=== PATIENT | male | born 2000 | race Caucasian/White ===

== ENCOUNTER 2020-08-30 20:25 | Emergency (ER) | payer BC ==
[~2020-08-30] VITALS: Ht 175.3 cm; Wt 81.8 kg
[2020-08-30] MEDS ORDERED: risperiDONE 2mg tablet PO ONE (21:15)
--- NOTE | 2020-08-30 22:51 | NUR ---
Patient brought from main ER from the main ER. No distress. Per inside sales specialist the patient is ok to sleep and be re-evaluated later. Patient is well oriented, no distress.
--- NOTE | 2020-08-30 23:32 | NUR ---
Patient sleeping quietly, in view from nurses station. No legal hold. Patient family reported to be coming from [place] to pick him up in the am?
--- NOTE | 2020-08-31 00:29 | NUR ---
Patient sleeping quietly, no distress.
--- NOTE | 2020-08-31 03:45 | NUR ---
Patient sleeping quietly on his right side. No distress.
[2020-08-31 06:52] VITALS: BP 124/76
[2020-09-01] MEDS ORDERED: HYDR-3686 PO (18:28)
[2020-09-01] MEDS ORDERED: DIVA-76 PO (18:28)
[2020-09-01] MEDS ORDERED: LURA80TA3 PO (18:28)
== END 2020-08-31 06:56 | disposition home or self-care (01) ==
LOC: ER 20:26
DX: F41.9 Anxiety disorder, unspecified (principal); F22 Delusional disorders; F31.9 Bipolar disorder, unspecified; F17.210 Nicotine dependence, cigarettes, uncomplicated; F12.90 Cannabis use, unspecified, uncomplicated; Z88.8 Allergy status to other drugs, medicaments and biological substances
CPT/HCPCS: 99285

== ENCOUNTER 2020-09-01 14:50 | Emergency (ER) | payer BC ==
[~2020-09-01] VITALS: Ht 175.3 cm; Wt 87.7 kg
[2020-09-01] MEDS ORDERED: lurasidone 20mg tablet PO SCH (17:00)
[2020-09-01] MEDS ORDERED: lurasidone 60mg tablet PO SCH (17:00)
--- NOTE | 2020-09-01 18:00 | NUR ---
One to one with the patient to assess severity of mood symptoms. The patient is cooperative but very labile and periodically making loud crying noises. He stated he has been noncompliant with his medications. He reports he has not been sleeping. He is from [place] but came from [facility] in [place] but was kicked out of there and traveled down to [place]. He was seen here in the ER 08/30 and was released in the AM to be picked up by his parents [place] he was not ready to come home. He now is begging for help to get back to his parents home. He gives conflicting answers when asked about suicidal thoughts. He stated during the nursing the assessment "I'm about to frigging go lay down on the railroad tracks" A few minutes later he stated he denied being suicidal when asked by the PA. He denies that he is having auditory/visual hallucinations. He stated that he is frequently hospitalized at the [facility] unit in [place] and has had many other hospitalizations in facilities in [facility]. He stated that his dx hx is Bipolar, OCD, ADHD, Anxiety disorder. Hx of special ed classes in school.
[2020-09-01] MEDS ORDERED: LURA80TA3 PO (18:28)
[2020-09-01] MEDS ORDERED: DIVA-76 PO (18:28)
[2020-09-01] MEDS ORDERED: HYDR-3686 PO (18:28)
--- NOTE | 2020-09-01 18:52 | NUR ---
Mother, Steffany: [phone] Father, Joaquín: [phone]
--- NOTE | 2020-09-01 19:35 | NUR ---
The patient continues to be labile, has a flight of ideas, fast pressured speech
--- NOTE | 2020-09-01 19:38 | NUR ---
The patient is making nonsensical statements with a kyrgyz accent
[2020-09-01 19:39] LABS: CLARITY,URINE CLEAR (Clear); COLOR,URINE YELLOW (Yellow); GLUCOSE, URINE NEGATIVE (Neg); KETONES,URINE TRACE mg/dl (Neg); LEUKOCYTE ESTERASE ,URINE NEGATIVE (Neg); NITRITES, URINE NEGATIVE (Neg); OCCULT BLOOD,URINE NEGATIVE (Neg); PROTEIN,URINE TRACE mg/dl (Neg)
[2020-09-01 19:41] LABS: BASOPHILS # (AUTO) 0.1 X10'3 (0-0.2); BASOPHILS % (AUTO) 1.5 % (0-1); EOSINOPHILS # (AUTO) 0.6 X10'3 (0-0.9); EOSINOPHILS % (AUTO) 6.4 % (0-6); HEMATOCRIT 36.6 % (42.0-52.0); HEMOGLOBIN 12.7 g/dl (14.0-17.9); LYMPHOCYTES # (AUTO) 3.1 X10'3 (1.1-4.8); LYMPHOCYTES % (AUTO) 34.2 % (21-51); MEAN CORPUSCULAR HEMOGLOBIN 30.5 PG (27.0-31.0); MEAN CORPUSCULAR HGB CONC 34.7 g/dL (33.0-36.5); MEAN PLATELET VOLUME 7.1 FL (7.4-10.4); MONOCYTES # (AUTO) 1.1 X10'3 (0-0.9); MONOCYTES % (AUTO) 12.2 % (2-12); NEUTROPHILS # (AUTO) 4.2 X10'3 (1.8-7.7); NEUTROPHILS % (AUTO) 45.7 % (42-75); PLATELET COUNT 287 X10'3 (140-440); RED BLOOD COUNT 4.16 X10'6 (4.70-6.10); WHITE BLOOD COUNT 9.1 X10'3 (4.5-11.0)
[2020-09-01 19:51] LABS: UA COLLECTION TYPE VOIDED
[2020-09-01 19:52] LABS: BACTERIA,URINE FEW /HPF (Neg); CAL OXALATE CRYSTALS FEW /HPF (NEGATIVE); MUCUS STRANDS MODERATE /LPF (Neg); RBC,URINE NONE SEEN /HPF (0-2); SQUAMOUS EPITHELIAL CELL,UR FEW /LPF (FEW); WBC,URINE 0-4 /HPF (0-4)
[2020-09-01 19:54] LABS: URINE AMPHETAMINE SCREEN NEGATIVE (Neg); URINE BARBITUATE SCREEN NEGATIVE (Neg); URINE BENZODIAZEPINES SCREEN NEGATIVE (Neg); URINE CANNABINOID SCREEN POSITIVE (Neg); URINE COCAINE SCREEN NEGATIVE (Neg); URINE METHADONE SCREEN NEGATIVE (Neg); URINE OPIATE SCREEN NEGATIVE (Neg); URINE PHENCYCLIDINE SCREEN NEGATIVE (Neg)
[2020-09-01 19:56] LABS: ALANINE AMINOTRANSFERASE 20 U/L (12-78); ALBUMIN 3.6 G/DL (3.4-5.0); ALBUMIN/GLOBULIN RATIO 1.1 (1.1-1.5); ALKALINE PHOSPHATASE 59 IU/L (20-180); ANION GAP 7 (8-16); ASPARTATE AMINO TRANSFERASE 23 U/L (10-37); BILIRUBIN,TOTAL 0.4 MG/DL (0.1-1.0); BLOOD UREA NITROGEN 10 MG/DL (7-18); BUN/CREATININE RATIO 11.8 (5.4-32.0); CALCIUM 8.4 MG/DL (8.5-10.1); CHLORIDE 106 MMOL/L (99-107); CREATININE 0.85 MG/DL (0.60-1.10); GLUCOSE 90 MG/DL (70-104); POTASSIUM 3.4 MMOL/L (3.5-5.1); SODIUM 140 MMOL/L (135-145); TOTAL CARBON DIOXIDE 26.7 MMOL/L (24-32); TOTAL PROTEIN 6.9 G/DL (6.4-8.2); eGFR > 90 ML/MIN
[2020-09-01 20:04] LABS: ETHANOL < 0.010 GM/DL (0.0-0.010)
[2020-09-01] MEDS: hydrOXYzine 25 MG tablet PO PRN (20:07)
[2020-09-01] MEDS ORDERED: ondansetron 4mg/5ml UD cup PO ONE (20:45)
[2020-09-01] MEDS ORDERED: ondansetron 4mg rapidly disintigrating tab PO ONE (20:50)
--- NOTE | 2020-09-01 20:53 | NUR ---
patient vomited and PA made aware and orders received.
[2020-09-01] MEDS ORDERED: divalproex sodium 500mg tablet.DR PO SCH (21:00)
[2020-09-01] MEDS: POTASSIUM BICARB 20meq eff tab 20 MEQ TABLET.EFF PO ONE ×2 (21:10→21:31)
--- NOTE | 2020-09-01 22:02 | NUR ---
The patient appears to be sleeping.
--- NOTE | 2020-09-01 23:21 | NUR ---
The patient appears to be sleeping
--- NOTE | 2020-09-02 00:37 | NUR ---
The patient appears to be sleeping
--- NOTE | 2020-09-02 01:33 | NUR ---
The patient appears to be sleeping
--- NOTE | 2020-09-02 02:35 | NUR ---
The patient appears to be sleeping
[2020-09-02] MEDS ORDERED: potassium Cl 20 mEq SR tablet PO STA (04:12)
--- NOTE | 2020-09-02 04:46 | NUR ---
The patient was up to use the bathroom. He did take a kdur tablet but was very dramatic. He remains poorly focused, labile, hyperverbal
[2020-09-02] MEDS ORDERED: NICOTINE POLACRILEX 2 MG LOZENGE BC PRN (04:55)
--- NOTE | 2020-09-02 06:30 | NUR ---
Received patient sleeping at shift change, respirations even and unlabored.
--- NOTE | 2020-09-02 07:55 | NUR ---
Pt demanding "I want breakfast!" Pt reassured luis is coming. Pt making loud growl sounds, but remains in his room.
[2020-09-02] MEDS ORDERED: nicotine 7mg patch - 24hr TD SCH (08:00)
--- NOTE | 2020-09-02 08:21 | NUR ---
Patient awake in his room eating his breakfast. Pt states "I want to smoke." Pt has conflicting statements about who many cigarettes he smokes. Received order for 7mg Nicotine patch, which was placed on right deltoid. Pt presents as disorganized with pressured/rapid speech. Pt states "I'm from [place] "All I want to do is get my cigarettes and pot." "I hate you because you have no dispensaries around here." "I hate you." Pt inappropriately laughs and makes growling sounds. Pt is dramatic with his facial expresions, making his eyes big and exaggerating movements. Pt denies auditory and visual hallucinations. Denies suicidal thoughts.
--- NOTE | 2020-09-02 09:05 | NUR ---
[facility] in room assessing patient. Noted pt raising his voice, making racial remarks and saying "I just need to get the f out of here." Security was called for stand-by. Pt appeared to calm down and is now laying on his bed. Pt was placed on a 5150 hold.
--- NOTE | 2020-09-02 10:14 | NUR ---
Pt is lying on his bed with eyes open. Pt recently talked with his parents. No distress noted at this time.
[2020-09-02] MEDS: hydrOXYzine 25 MG tablet PO PRN (10:32)
--- NOTE | 2020-09-02 10:52 | NUR ---
Administered PRN Atarax 25mg.
[2020-09-02] MEDS ORDERED: OLANZapine 2.5MG tablet PO ONE (11:25)
--- NOTE | 2020-09-02 11:26 | NUR ---
Pt continues to be labile, will apologize for his outbursts one minute then the next postures up and becomes verbally agressive. Received order for PO Zyprexa 5mg.
--- NOTE | 2020-09-02 11:54 | NUR ---
DISCHARGE NOTE: Patient was discharged at 1147. Pt ambulated independently to lobby with mother. Discharge instructions were reviewed with both pt and mother, both verbalized understanding. Pt will follow up with her therapist Grant Roland. Pt was A&Ox4, Denies any suicidal thoughts.
--- NOTE | 2020-09-02 12:01 | NUR ---
DISREGARD PREVIOUS NOTE- DOCUMENTED ON WRONG PATIENT.
--- NOTE | 2020-09-02 12:49 | NUR ---
Pt sleeping comfortably, respirations even and unlabored.
[2020-09-02 14:23] VITALS: BP 146/87
== END 2020-09-02 14:25 ==
LOC: ER 14:51
DX: R45.851 Suicidal ideations (principal); Z20.822 Contact with and (suspected) exposure to COVID-19; F31.9 Bipolar disorder, unspecified; F12.90 Cannabis use, unspecified, uncomplicated; F41.9 Anxiety disorder, unspecified; Z59.0 Homelessness; Z79.899 Other long term (current) drug therapy; Z88.8 Allergy status to other drugs, medicaments and biological substances
CPT/HCPCS: 36415; 80053; 80305; 80320; 81001; 84443; 85025; 87635; 99285; C9803; Q0177

== ENCOUNTER 2020-09-02 12:52 | Inpatient (IN) | payer BC ==
[~2020-09-02] VITALS: Ht 175.3 cm; Wt 86.4 kg
[~2020-09-02 12:52] MED LIST: DIVA-76 PO; HYDR-3686 PO; LURA80TA3 PO
[2020-09-02] MEDS ORDERED: acetaminophen 325mg tablet PO PRN ×2 (14:50)
[2020-09-02] MEDS ORDERED: loperamide 2mg capsule PO PRN (14:50)
[2020-09-02] MEDS ORDERED: magnesium hydroxide 30ml (MOM) UD suspension PO PRN (14:50)
[2020-09-02] MEDS: NICOTINE POLACRILEX 2 MG LOZENGE BC PRN ×2 (15:22→20:49)
--- NOTE | 2020-09-02 15:59 | NUR ---
Admisison note: Pt admitted today to [facility] for [facility]al today on 5150 for GD from the ER at 1430. Pt exhibits manic symptoms, disorganized, confused, agitated, long history of bipolar since 15 yrs old, noncompliant with treatment. Pt is [place] Pt has history of Bipolar, OCD, ADHD, anxiety, special ed. Pt is not cooperative for the admission process. PT often loud and accusing and profane.
[2020-09-02] MEDS: LORazepam 1 MG tablet PO PRN (16:09)
[2020-09-02 20:21] VITALS: BP 111/69
[2020-09-02] MEDS ORDERED: lurasidone 20mg tablet PO SCH (21:00)
[2020-09-02] MEDS ORDERED: lurasidone 60mg tablet PO SCH (21:00)
[2020-09-02] MEDS ORDERED: divalproex sodium 500mg tablet.DR PO SCH (21:00)
[2020-09-02] MEDS: traZODone 50mg tablet PO PRN (21:53)
--- NOTE | 2020-09-03 00:11 | NUR ---
Nursing Progress Note: Legal hold: 5150 Client on voluntary/involuntary status for DTS Report received from Jorge BUTT with use of SBAR Why are they here: On 08/30/20 the Pt , presents to the ED with complaints of being "very anxious and very paranoid" for the last 5 days. He also describes some auditory hallucinations. Patient reports he has been homeless over this time, however later backtracks and states he is a "traveler" and having issues with the [employer] bus. He also reports his cell phone is broken so he has been "stranded" in [place]. Patient reports his parents "have to" come from [place], [place] tomorrow pick him up and take him to a "mental health facility" known as [facility]. RN spoke to patient's parents who report they are unable to pick the patient up until tomorrow afternoon. Pt was discharged from the ER It is not clear if his parents came. The pt returns to the ER o 09/01/20 He presented to the emergency department for mental health evaluation due to his intermittent suicidal ideation. Patient provided the cell number of his parents. Mom: [phone]. Dad: [phone]. ER MD Spoke with the mother and father who stated that they are not equipped to deal with the patients mental illness. Assessment What has happened this shift: Pt was sleeping at start of shift. Slept until awakened for medications. Pt was cooperative with meds. Needed some encouragement to eat adequate snack for Latuda. Pt became wide awake and speech became Manic. His mood was labile in one sentence he could go from tears to laughing. 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 Pt spoke in a Alexx accent at times. Pt called his mom and yelled at her over the phone. Although manic speech he was cooperative and pleasant. Took PRN Trazodone went to bed S/I, H/I: In his rambling disorganized speech he mentions stepping in front of a train. A/VH: Denies Sleep: Asleep at this time ADL's Independent Group attendance NA Were meds taken Yes Any med S/E No Mental Status Exam Appearance: Reasonably well groomed. 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 Cognition WNL Insight: poor Judgment :Poor Therapeutic interventions: PRN's: Trazodone Interventions: 1:1 assessment, therapeutic communication, medication education and monitoring, encouragement to come to meals and participate in unit activities, behavior monitoring and intervention as needed, distraction, redirection, Q 15 minute safety checks. Restraints/seclusion/emergency medication: None Justification of Continued Inpatient Treatment: Patient needs crisis interruption and medication management and monitoring in a safe and therapeutic environment.
[2020-09-03] MEDS: NICOTINE POLACRILEX 2 MG LOZENGE BC PRN ×2 (06:28→19:12)
[2020-09-03] MEDS: nicotine 21mg patch - 24 hr TD SCH (07:39)
[2020-09-03 07:41] LABS: CHOL/HDL RATIO 2.5 (0.00-4.99); CHOLESTEROL 117 MG/DL (0-200); HDL CHOLESTEROL 46 MG/DL (35-60); LDL CHOLESTEROL 56 MG/DL (50-100); TRIGLYCERIDES 56 MG/DL (20-135); VALPROATE 55 UG/ML (50-100)
[2020-09-03 08:00] VITALS: BP 113/62
[2020-09-03 08:02] LABS: HEMOGLOBIN A1C 5.6 % (4.5-6.2)
[2020-09-03] MEDS: LORazepam 1 MG tablet PO PRN ×3 (09:27→19:12)
[2020-09-03] MEDS ORDERED: OLANZAPINE 5 MG TABLET PO ONE (09:35)
--- NOTE | 2020-09-03 15:35 | NUR ---
Nursing Progress Note: RAJANI Legal hold: 5150 Expires 09/11 @ 1430 Client on involuntary status for DTS. Report received from FILOMENA Landa with use of SBAR. Why are they here: Pt admitted today to [facility] for [facility]al today on 5150 for GD from the ER at 1430. Pt exhibits manic symptoms, disorganized, confused, agitated, long history of bipolar since 15 yrs old, noncompliant with treatment. Pt is "Tree hopping [place] tree [place] get [place] Pt has history of Bipolar, OCD, ADHD, anxiety, special ed. Pt is not cooperative for the admission process. patient often loud and accusing and profane. Assessment What has happened this shift: Received patient awake pacing the basurto at shift change. Pt presents with rapid speech and elevated affect. Pt required redirection as he was talking loud and making growling noises and peers were still sleeping. Pt paced basurto, laughing inappropriately throughout the morning. Pt came up to staff and said "I am wanted in [facility] and they are going to come and get me, unless you want to take me." "I am just going to banana slug my way out of here." Pt told law writer, after talking to father on the phone, "I want to kill my dad, my dad's going down." "He is a psychologist, that's why I want to kill him." Pt continued to elevate, posturing up on staff saying different things like "you want a piece of me?" "Hey what's up with that bitch, why you staring at me!" Pt would then change to apologizing then back to loud, accusing, profane, grandiose statements. Pt changes his voice to different accents like gangster to Cape Verde[place], telling law writer "You got all this jain shit around you." Pt talks often about smoking "Ganja," "I will bring my Sativa up in this place." During 1:1 he sat in the chair pretending he was smoking a joint. Pt was administered Ativan 1mg with repeat dose with little effect. Zyprexa 5mg one time dose was administered with effect. Pt slept a good portion of the early afternoon. S/I, H/I: In his rambling disorganized speech said "I will just go and lay on the railroad tracks." "That's cool." See above note about H/I regarding pt's father. A/VH: Denies both. Sleep: 6.25 hours per sleep assessment. Slept after Zyprexa. ADL's: Independent Group attendance: No scheduled group today. Were meds taken: Yes, without issue. Any med S/E: Some sedation after Zyprexa Mental Status Exam Appearance: Disheveled, malodorous, scruffy morales, puffy hair. Dressed in green unit scrubs. Eye contact: Good Behavior: Manic Speech: Disorganized, rapid speech. Mood: Labile Affect: Elevated Thought process: Disorganized, grandiose, delusional. Thought Content: Just wants to smoke "my stash." Cognition A&O x3 Insight: Poor Judgment: Poor Therapeutic interventions PRN's: Ativan, Zyprexa 5mg Interventions: 1:1 assessment, therapeutic communication, medication administration/education/monitoring, encouragement to come to meals and participate in unit activities, behavior monitoring and intervention as needed, distraction, redirection, Q 15 minute safety checks. Restraints/seclusion/emergency medication: None Justification of Continued Inpatient Treatment: Patient is exhibiting manic symptoms, disorganized, confused, agitated and unable to verbalize a plan for food clothing or half-way. Patient has a long history of mental illness, "bipolar ". Patient has been noncompliant with treatment providers in [facility]. Patient needs crisis interruption and medication management and monitoring in a safe and therapeutic environment.
--- NOTE | 2020-09-03 18:40 | NUR ---
Pts parents are requesting that patient be transferred to a treatment center or program once he is released from here. They state he has gotten to be "too much" for them when he is unstable. Pt is yelling at his mother on the phone and then hung up on her. Pts father has requested any phone calls come to him rather than his mother. Explained staff may attempt contact at some point and I would note his request.
[2020-09-03] MEDS: traZODone 50mg tablet PO PRN ×2 (19:55→20:56)
[2020-09-03] MEDS: divalproex sod 250mg ER (24-hour) tablet PO SCH (19:55)
[2020-09-03 20:00] VITALS: BP 154/80
[2020-09-03] MEDS: OLANZAPINE 5 MG TABLET PO SCH (20:00)
[2020-09-03] MEDS: mag hydrox/Alum hydrox/simeth 30ml oral suspension PO PRN (20:00)
[2020-09-03] MEDS: hydrOXYzine 25 MG tablet PO PRN (20:56)
--- NOTE | 2020-09-03 21:54 | NUR ---
Nursing Progress Note: RAJANI Legal hold: 515 Expires 09/11 @ 1430 Client on involuntary status for DTS. Report received from FILOMENA Landa with use of SBAR. Why are they here: Pt admitted today to [facility] for [facility] today on 5150 for GD from the ER at 1430. Pt exhibits manic symptoms, disorganized, confused, agitated, long history of bipolar since 15 yrs old, noncompliant with treatment. Pt is "Tree hopping from tree to tree to get back to the [facility] Pt has history of Bipolar, OCD, ADHD, anxiety, special ed. Pt is not cooperative for the admission process. patient often loud and accusing and profane. Assessment What has happened this shift: Pt was requesting headphones and a phone at change of shift. Pt called his parents and began to escalate yelling loudly at his mother. Pt handed me the phone and his father stated they would like to screen their calls from him. Pts mother would like him to go to a center "with other men where he can be cared for." Pt made a couple of phone calls to his mother and attempts to make plans with his mother for his release. 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 Pt was agitated and given prns with minimal effect. Pt became agitated at another patient staring and following him around, but he was able to politely ask her to stay away from him. pt was med compliant at . Stating "ok I'll play your little game and you can't make me take meds when I get out of here. All I need is depakote, latuda, and Risperdal and I'm really not trying to change my meds up, but I'll take what you have." S/I, H/I: I dont want to kill myself, Im just not afraid of dying. A/VH: Denies both Sleep: see sleep hours ADL's: Independent Group attendance: see sleep hours Were meds taken: Yes, without issue. Any med S/E: none Mental Status Exam Appearance: Disheveled, malodorous, scruffy morales, puffy hair. Dressed in green unit scrubs. Eye contact: Good Behavior: yelling at parents, loud, postures aggressively then backs down. Speech: Disorganized, rapid speech. Mood: Labile, hypomanic Affect: Elevated Thought process: Disorganized, grandiose, delusional. 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 Cognition A&O x3 Insight: Poor Judgment: Poor Therapeutic interventions PRN's: Ativan, atarax, trazodone, nicotine lozenge Interventions: 1:1 assessment, therapeutic communication, medication administration/education/monitoring, encouragement to come to meals and participate in unit activities, behavior monitoring and intervention as needed, distraction, redirection, Q 15 minute safety checks. Restraints/seclusion/emergency medication: None Justification of Continued Inpatient Treatment: Patient is exhibiting manic symptoms, disorganized, confused, agitated and unable to verbalize a plan for food clothing or alf. Patient has a long history of mental illness, "bipolar ". Patient has been noncompliant with treatment providers in [facility]. Patient needs crisis interruption and medication management and monitoring in a safe and therapeutic environment.
[2020-09-04] MEDS: NICOTINE POLACRILEX 2 MG LOZENGE BC PRN ×4 (06:58→18:08)
[2020-09-04] MEDS: divalproex sod 250mg ER (24-hour) tablet PO SCH ×2 (07:35→20:26)
[2020-09-04] MEDS: OLANZAPINE 5 MG TABLET PO SCH ×3 (07:35→20:26)
[2020-09-04] MEDS: nicotine 21mg patch - 24 hr TD SCH (07:39)
[2020-09-04 07:53] VITALS: BP 119/86
[2020-09-04] MEDS ORDERED: LORazepam 2 mg/ml vial ONE (08:54)
[2020-09-04] MEDS ORDERED: haloperidol lactate 5mg/ml inj ONE (08:54)
[2020-09-04] MEDS ORDERED: diphenhydrAMINE 50 mg/ml inj ONE (08:55)
--- NOTE | 2020-09-04 17:51 | NUR ---
Nursing Progress Note: Legal hold: 5150 Expires 09/11 @ 1430 Client on involuntary status for DTS. Report received from FILOMENA Landa with use of SBAR. Why are they here: Pt admitted today to [facility] for Behavioral today on 5150 for GD from the ER at 1430. Pt exhibits manic symptoms, disorganized, confused, agitated, long history of bipolar since 15 yrs old, noncompliant with treatment. Pt is "Tree hopping from tree to tree to get back to the [place]." Pt has history of Bipolar, OCD, ADHD, anxiety, special ed. Pt is not cooperative for the admission process. patient often loud and accusing and profane. Assessment What has happened this shift: RN received pt. asleep in bed at start of shift. Pt. awoke shortly after and speaking rapidly and loudly states, I need more water! You guys just leave this old, warm water sitting in my room all night and then make me drink hot water from the faucet! RN asked pt. multiple times to lower his voice and pt. eventually complied. After pt. received water pt. paced the halls with headphones. Pt. then approached this RN and loudly stated, Im gonna need nicotine right now I smoke, thats what I do All I want to do is get some Taco Steve and smoke!. Pt. again reminded to lower his voice. Pt. received Nicotine lozenge and again paced the hallway. After breakfast pt. requested Nicotine. When told he had to wait 7 minutes pt. became verbally abusive, yelling at this RN and calling him a . Pt. informed that name calling would not be tolerated and that pt. needed to lower his voice. Pt. continued with name calling. Security called and pt. began threatening staff, stating, We can do this here! Pt. given IM medication of Haldol 10mg, Ativan 2mg, and Benadryl 50mg with good effect. Pt. slept for approx. 2 hours and woke up for snack. 1:1 attempted at bedside, RN attempted to discuss earlier incident with pt. but pt. became agitated. Pt. refused Physical assessment and 1:1 interview. Pt. states, I Just want to get out of here I just wish I was never born. When RN attempted to talk with pt. about his feelings of passive SI, pt. stated, Dont talk to me unless I can smoke. Pt. napped after lunch. S/I, H/I: Passive SI. A/VH: Denies Sleep: 9.25 hrs on NOC shift. Pt. napped approx. 3hours on day shift. ADL's: Independent. Pt. showered today. Group attendance: No scheduled group today. Were meds taken: Yes Any med S/E: Denies Mental Status Exam Appearance: Disheveled, wearing green scrubs, and long sleeve shirt. Eye contact: Good Behavior: Unredirectable, Angry, defiant, and flippant. Speech: Hyperverbal, pressured speech. Mood: Agitated, depressed, anxious. Affect: Congruent with mood. Thought process: Disorganized, grandiose, tangential. Thought Content: Wants to go to [facility] and eat taco steve and smoke. Cognition: Unable to smoke. Insight: Poor Judgment: Poor Therapeutic interventions PRN's: Haldol 10mg, Ativan 2mg, Benadryl 50mg IM x1 Interventions: 1:1 assessment, therapeutic communication, medication administration/education/monitoring, encouragement to come to meals and participate in unit activities, behavior monitoring and intervention as needed, distraction, redirection, Q 15 minute safety checks. Restraints/seclusion/emergency medication: None Justification of Continued Inpatient Treatment: Patient is exhibiting manic symptoms, disorganized, confused, agitated and unable to verbalize a plan for food clothing or fdc. Patient has a long history of mental illness, "bipolar ". Patient has been noncompliant with treatment providers in [facility]. Patient needs crisis interruption and medication management and monitoring in a safe and therapeutic environment.
[2020-09-04] MEDS: LORazepam 1 MG tablet PO PRN (18:36)
[2020-09-04 19:31] VITALS: BP 129/89
[2020-09-04] MEDS: mag hydrox/Alum hydrox/simeth 30ml oral suspension PO PRN (20:26)
[2020-09-04] MEDS: traZODone 50mg tablet PO PRN (20:26)
--- NOTE | 2020-09-04 22:00 | NUR ---
Nursing Progress Note: Legal hold: 515 Expires 09/11 @ 1430 Client on involuntary status for DTS. Report received from FILOMENA Landa with use of SBAR. Why are they here: Pt admitted today to [facility] for Behavioral today on 5150 for GD from the ER at 1430. Pt exhibits manic symptoms, disorganized, confused, agitated, long history of bipolar since 15 yrs old, noncompliant with treatment. Pt is "Tree hopping from tree to tree to get back to the [facility] Pt has history of Bipolar, OCD, ADHD, anxiety, special ed. Pt is not cooperative for the admission process. patient often loud and accusing and profane. Assessment What has happened this shift: Pt was in his room on the phone with his mother yelling and crying at change of shift. Pt states "She's on vacation from work and I just want to be on vacation with her, I wanted to spend the summer with her and now I'm here! I just want to go to [employer]!" Suggested patient ask his mother if she would like to come and visit him while he's here. Pt replied, "I know but my dad's a psychologist and he's messing everything up!" Pt was hysterical and anxious, was given prn ativan with good effect. He was able to sit and was cooperative for his vitals and then proceeded to listen to headphones and interact socially with others. Pt spent time watching tv and playing board games before going to bed. S/I, H/I: Denies A/VH: Denies Sleep: see sleep hours ADL's: Independent. Group attendance: No scheduled group today. Were meds taken: Yes Any med S/E: Denies Mental Status Exam Appearance: Disheveled, wearing green scrubs, and long sleeve shirt. Eye contact: Good Behavior: Pts behavior becomes erratic during and immediately after phone calls with his parents. The remainder of the shift he is cooperative and redirectable, responds well to prn ativan. Speech: Hyperverbal, pressured speech. Mood: labile Affect: congruent with mood Thought process: Disorganized, grandiose, tangential. Thought Content: Wants to see his mother and go to [place] to eat Cognition: a/ox4 Insight: Poor Judgment: Poor Therapeutic interventions PRN's: ativan, trazodone Interventions: 1:1 assessment, therapeutic communication, medication administration/education/monitoring, encouragement to come to meals and participate in unit activities, behavior monitoring and intervention as needed, distraction, redirection, Q 15 minute safety checks. Restraints/seclusion/emergency medication: None Justification of Continued Inpatient Treatment: Patient is exhibiting manic symptoms, disorganized, confused, agitated and unable to verbalize a plan for food clothing or snf. Patient has a long history of mental illness, "bipolar ". Patient has been noncompliant with treatment providers in [facility]. Patient needs crisis interruption and medication management and monitoring in a safe and therapeutic environment.
[2020-09-05] MEDS: NICOTINE POLACRILEX 2 MG LOZENGE BC PRN ×5 (06:13→19:02)
[2020-09-05] MEDS: divalproex sod 250mg ER (24-hour) tablet PO SCH ×2 (07:07→21:05)
[2020-09-05] MEDS: OLANZAPINE 5 MG TABLET PO SCH (07:07)
[2020-09-05] MEDS: nicotine 21mg patch - 24 hr TD SCH (07:10)
[2020-09-05 07:39] VITALS: BP 129/80
[2020-09-05] MEDS ORDERED: LORazepam 2 mg/ml vial ONE (08:59)
[2020-09-05] MEDS ORDERED: diphenhydrAMINE 50 mg/ml inj ONE (08:59)
[2020-09-05] MEDS ORDERED: haloperidol lactate 5mg/ml inj ONE (08:59)
--- NOTE | 2020-09-05 09:43 | NUR ---
Attempted to meet with Naveen to complete psychosocial assessment: Naveen is a 20 y/o single male who was placed on 5150 for grave disability. He presented to the ED with mood lability, easily agitated, disoraganized thought process, delusional, and made suicidal statements. He has a history of Bipolar and was diagnosed at age 15. He has a history of multiple psychiatric hospitalizations and is non-compliant with treatment providers in [place]. Naveen reported he had been in [place] for 4-5 days prior to going to the ED. He reported he was going to go into a [facility] in [place], however, they could not manage his mental health symptoms. Naveen has been hostile, easily agiated, rude, disrespectful to staff, and quite labile. He was fixated on leaving [facility] and buying cigarettes. He reported he wants to return to [place], however, does not have housing as he is unable or unwilling to stay with his parents. He initally gave verbal permission for sba underwriter to call his parents and then immediately yelled, "fuck that, you don't need to talk to them". He would not cooperate with the assessment. The more audience he had, the worse his language and hostility was. He was easily agitated and rude to staff and was name calling. He was told his behavior would not be tolerated by his nurse. He requested an IM which he received with assistance/stand by of security. Tacker Off called his insurance strategic marketing specialist, Karly (ph# [phone]), to inquire if there are any rehab/longer term programs that may be suitable for Naveen upon discharge. Left message requesting a call back. KARTHIKEYAN Landin Addendum: 09/05/20 at 0945 by Preeti LYLES Amended: Links added.
[2020-09-05] MEDS: OLANZapine 2.5MG tablet PO SCH ×2 (13:34→21:05)
--- NOTE | 2020-09-05 17:27 | NUR ---
Nursing Progress Note: Legal hold: 5250 Client on involuntary status for DTS. Report received from FILOMENA Landa with use of SBAR. Why are they here: Pt admitted today to [facility] for Behavioral today on 5150 for GD from the ER at 1430. Pt exhibits manic symptoms, disorganized, confused, agitated, long history of bipolar since 15 yrs old, noncompliant with treatment. Pt is "[place] Pt has history of Bipolar, OCD, ADHD, anxiety, special ed. Pt is not cooperative for the admission process. patient often loud and accusing and profane. Assessment What has happened this shift: RN received pt. awake and pacing halls while listening to headphones at start of shift. Pt. irritable, demanding his nicotine patch. Pt. given all medications. Pt. became more calm and continued to pace in the halls. Pt. becomes excitable when talking to female peer, talking loudly in a Peruvian accent attempting to make her. Laugh. Pt. met with social secretary and became agitated, yelling at social secretary, RN attempted to deescalate pt., pt. then called this RN a and made threatening statements such as, You better get out of my face, Im not playing around here. Security was called and pt. given IM medication of Haldol 10mg, Benadryl 50mg, Ativan 2mg po with good effect. Pt. then paced the basurto with headphones on. Pt. eventually fell asleep. Pt. awoken and served 5250, pt. refused to sign and declined to receive a copy. Pt. then went back to sleep. Pt. awoke and was agitated, requesting to speak to his provider. Pt. then became tearful and called his mom. Pt. overheard asking his mom to let him move back in with his parents. RN attempted to talk with pt. afterwards but pt. was agitated and began talking with this RN in a Peruvian voice, stating, You dont care about me All I want to do is grow a big ganja bolanos. S/I, H/I: Denies A/VH: Denies Sleep: 8.5 hrs on NOC shift. Pt. napped approx. 3hours on day shift. ADL's: Independent. Group attendance: NA Were meds taken: Yes Any med S/E: Denies Mental Status Exam Appearance: Disheveled, wearing green scrubs, and long sleeve shirt. Eye contact: Good Behavior: Pt. is labile, easily becomes agitated, defiant, and flippant. Pt. also tearful at times. Speech: Hyperverbal, pressured speech, sometimes talking in a Peruvian accent. Mood: Agitated, depressed, anxious. Affect: Congruent with mood. Thought process: Disorganized, grandiose, tangential. Thought Content: Focused on discharge. Cognition: A&Ox4 Insight: Poor Judgment: Poor Therapeutic interventions PRN's: Haldol 10mg, Ativan 2mg, Benadryl 50mg IM x1, nicotine lozenges. Interventions: 1:1 assessment, therapeutic communication, medication administration/education/monitoring, encouragement to come to meals and participate in unit activities, behavior monitoring and intervention as needed, distraction, redirection, Q 15 minute safety checks. Restraints/seclusion/emergency medication: None Justification of Continued Inpatient Treatment: Patient is exhibiting manic symptoms, disorganized, confused, agitated and unable to verbalize a plan for food clothing or assisted. Patient has a long history of mental illness, "bipolar ". Patient has been noncompliant with treatment providers in [facility]. Patient needs crisis interruption and medication management and monitoring in a safe and therapeutic environment.
[2020-09-05 19:00] VITALS: BP 137/78
[2020-09-05] MEDS: traZODone 50mg tablet PO PRN (21:05)
--- NOTE | 2020-09-06 01:12 | NUR ---
Nursing Progress Note: Legal hold: 525 Client on involuntary status for DTS. Report received from ALEX Pickett with use of SBAR. Why are they here: Pt admitted today to [facility] for Behavioral today on 5150 for GD from the ER at 1430. Pt exhibits manic symptoms, disorganized, confused, agitated, long history of bipolar since 15 yrs old, noncompliant with treatment. Pt is "[place] Pt has history of Bipolar, OCD, ADHD, anxiety, special ed. Pt is not cooperative for the admission process. patient often loud and accusing and profane. Assessment What has happened this shift: Patient is noted in hallways and community room following shift change. Patient made a personal phone call, he became agitated afterwards. Calming measures used with success. Later, while sitting in hallway, patient made a loud comment about a female RT's backside blocking his view of the sunset. The patient was advised this verbal behavior would not be tolerated. Later in evening, following another phone conversation with family, the patient became loud, started crying, he laid down in the hallway. The patient was assisted up and redirected to his room. 1:1 Interview at bedside. Patient rambles, he is tangential. Patient tells this typewriter operator automatic his father hates him, his mother hates him. "My father bought goats to eat my marijuana plants, "he hot boxes my mom to keep her messed up." Patient states he just wants to get back to [place], my dad will pick me up there. I just want to get home to grow pot. "It's the only thing I know how to do." Patient admits to depression. S/I, H/I: Denies. A/VH: Denies. Sleep: Will tally at 0500 hours. ADL's: Independent. Group attendance: No group on night coordinator. Were meds taken: Yes, medication compliant. Any med S/E: None noted or observed. Mental Status Exam Appearance: Disheveled looking. Eye contact: Good. Behavior: Labile, intrusive, offensive, occasional crying. Speech: Hyperverbal, pressured speech. Mood: Agitated, depressed, anxious. Affect: Congruent with mood. Thought process: Disorganized, grandiose, tangential. Thought Content: Focused on discharge, getting back to [place], then [place] to grow pot. Cognition: A&Ox4. Insight: Poor. Judgment: Poor. Therapeutic interventions PRN's: Nicotine lozenge, Ativan, Trazadone. Interventions: 1:1 assessment, therapeutic communication, medication administration/education/monitoring, encouragement to come to meals and participate in unit activities, behavior monitoring and intervention as needed, distraction, redirection, Q 15 minute safety checks. Restraints/seclusion/emergency medication: None Justification of Continued Inpatient Treatment: Patient is exhibiting manic symptoms, disorganized, confused, agitated and unable to verbalize a plan for food clothing or [facility]. Patient has a long history of mental illness, "bipolar ". Patient has been noncompliant with treatment providers in [facility]. Patient needs crisis interruption and medication management and monitoring in a safe and therapeutic environment.
[2020-09-06] MEDS: LORazepam 1 MG tablet PO PRN ×3 (01:32→20:49)
[2020-09-06] MEDS: OLANZapine 2.5MG tablet PO SCH ×3 (07:19→20:50)
[2020-09-06] MEDS: NICOTINE POLACRILEX 2 MG LOZENGE BC PRN ×7 (07:19→21:39)
[2020-09-06] MEDS: divalproex sod 250mg ER (24-hour) tablet PO SCH ×2 (07:19→20:49)
[2020-09-06] MEDS: nicotine 21mg patch - 24 hr TD SCH (07:20)
[2020-09-06 08:00] VITALS: BP 91/70
--- NOTE | 2020-09-06 09:55 | NUR ---
Initial: Pt admit for Bipolar disorder. Currently on a regular diet with slightly fluctuating PO intake however overall averaging 75-100% PO intake. LBM 09/05. No documented edema or wounds. No nutrition diagnosis at this time. Will continue to follow. Recommendations: 1) Continue regular diet 2) Bowel care per rx 3) Weekly scaled weights Addendum: 09/06/20 at [address] Amended: Links added.
--- NOTE | 2020-09-06 17:02 | NUR ---
Nursing Progress Note: Legal hold: 5250 Client on involuntary status for DTS. Report received from FILOMENA Maharaj with use of SBAR. Why are they here: Pt admitted today to [facility] for [facility]al today on 5150 for GD from the ER at 1430. Pt exhibits manic symptoms, disorganized, confused, agitated, long history of bipolar since 15 yrs old, noncompliant with treatment. Pt is "[place] Pt has history of Bipolar, OCD, ADHD, anxiety, special ed. Pt is not cooperative for the admission process. patient often loud and accusing and profane. Assessment What has happened this shift: RN received pt. asleep in bed at start of shift. Pt. awoke for breakfast and took medications. 1:1 done at bedside, pt. states, I just want go to the [place] and smoke, and grow ganja, and take care of my cat. Pt. overheard having multiple loud and angry conversations with his mother. Pt. is irritable but redirectable. Pt. got into a verbal conflict with a female peer and staff had to intervene. Pt. given Ativan 1mg po with good effect. Pt. is demanding and intrusive, requesting his needs be met immediately. In afternoon pt. in a jovial mood, laughing, joking, and talking in a [place] accent. S/I, H/I: Denies A/VH: Denies Sleep: 7 hrs on NOC shift. Pt. napped approx. 3hours on day shift. ADL's: Independent. Group attendance: N/A Were meds taken: Yes Any med S/E: Denies Mental Status Exam Appearance: Disheveled, wearing green scrubs, and long sleeve shirt. Eye contact: Good Behavior: Pt. is labile, intrusive with staff and peers, demanding, and flippant. Pt. also tearful at times. Speech: Hyperverbal, pressured speech, sometimes talking in a [place] accent. Mood: Agitated, depressed, anxious. Affect: Congruent with mood. Thought process: Disorganized, grandiose, tangential. Thought Content: Focused on discharge. Cognition: A&Ox4 Insight: Poor Judgment: Poor Therapeutic interventions PRN's: Ativan 1mg po x1 and Nicotine lozenges. Interventions: 1:1 assessment, therapeutic communication, medication administration/education/monitoring, encouragement to come to meals and participate in unit activities, behavior monitoring and intervention as needed, distraction, redirection, Q 15 minute safety checks. Restraints/seclusion/emergency medication: None Justification of Continued Inpatient Treatment: Patient is exhibiting manic symptoms, disorganized, confused, agitated and unable to verbalize a plan for food clothing or alf. Patient has a long history of mental illness, "bipolar ". Patient has been noncompliant with treatment providers in [facility]. Patient needs crisis interruption and medication management and monitoring in a safe and therapeutic environment.
--- NOTE | 2020-09-06 19:37 | NUR ---
Nicotine lozenge given prn.
[2020-09-06 20:00] VITALS: BP 147/87
[2020-09-06] MEDS: traZODone 50mg tablet PO PRN ×2 (20:50→21:59)
[2020-09-06] MEDS: hydrOXYzine 25 MG tablet PO PRN (21:59)
--- NOTE | 2020-09-06 22:33 | NUR ---
Nursing Progress Note: Legal hold: 5250 Client on involuntary status for DTS. Report received from ALEX Pickett with use of SBAR. Why are they here: Pt admitted today to [facility] for [facility]al today on 5150 for GD from the ER at 1430. Pt exhibits manic symptoms, disorganized, confused, agitated, long history of bipolar since 15 yrs old, noncompliant with treatment. Pt is "[place] hopping [place]." Pt has history of Bipolar, OCD, ADHD, anxiety, special ed. Pt is not cooperative for the admission process. patient often loud and accusing and profane. Assessment Patient is ambulating halls and listening to music on head phones. He is well oriented. Some anxiety present. Patient requested and was given nicotine lozenges multiple times. Patient later in evening becomes intrusive with other patients. He exhibits loud behavior. He screams music at the top of his lungs, he becomes very vocal and curses at staff when asked to lower his voice. He tells this va underwriter, "I thought you were cool, but now you're a fucking marshal!" Patient is redirected. Ativan was given. Later the patient yells at staff, accusing them of causing another patient to cry. Patient will not listen to reason. Atarax and Trazadone were given. Patient later calmed and went to his bedroom. Patient had displayed some signs of paranoia. Frequent rounding and observation will be continued for patient and staff safety. S/I, H/I: Denies. A/VH: Denies. Some paranoia was displayed. Sleep: Will tally at 0500 hours. ADL's: Independent. Group attendance: No group on distance education faculty liaison. Were meds taken: Yes, medication compliant. Any med S/E: None noted or observed. Mental Status Exam Appearance: Disheveled looking. Eye contact: Good. Behavior: Labile, intrusive, offensive, accusatory. Speech: Hyperverbal, pressured speech. Mood: Agitated, depressed, anxious, some paranoia. Affect: Congruent with mood. Thought process: Disorganized, grandiose, tangential. Thought Content: Focused on discharge, getting back to [place], then [place] to grow pot. Cognition: A&Ox4. Insight: Poor. Judgment: Poor. Therapeutic interventions PRN's: Nicotine lozenges, Ativan, Trazadone, Atarax, Interventions: 1:1 assessment, therapeutic communication, medication administration/education/monitoring, encouragement to come to meals and participate in unit activities, behavior monitoring and intervention as needed, distraction, redirection, Q 15 minute safety checks. Restraints/seclusion/emergency medication: None Justification of Continued Inpatient Treatment: Patient is exhibiting manic symptoms, disorganized, confused, agitated and unable to verbalize a plan for food clothing or senior care. Patient has a long history of mental illness, "bipolar ". Patient has been noncompliant with treatment providers in [facility]. Patient needs crisis interruption and medication management and monitoring in a safe and therapeutic environment.
[2020-09-07] MEDS: LORazepam 1 MG tablet PO PRN ×2 (07:12→23:19)
[2020-09-07] MEDS: NICOTINE POLACRILEX 2 MG LOZENGE BC PRN ×7 (07:12→23:39)
[2020-09-07] MEDS: divalproex sod 250mg ER (24-hour) tablet PO SCH ×2 (07:13→20:40)
[2020-09-07] MEDS: OLANZapine 2.5MG tablet PO SCH ×4 (07:13→20:39)
[2020-09-07] MEDS: nicotine 21mg patch - 24 hr TD SCH (07:14)
[2020-09-07 07:59] VITALS: BP 130/87
--- NOTE | 2020-09-07 12:25 | NUR ---
Nursing Progress Note Legal hold: 5250 Client on involuntary status for DTS. Report received from FILOMENA Maharaj with use of SBAR Why are they here: Pt admitted today to [facility] on a 5150 for GD from the ER. Pt exhibits manic symptoms, disorganized, confused, agitated, long history of bipolar since 15 yrs old, noncompliant with treatment. Pt is "[place]." Pt has history of Bipolar, OCD, ADHD, anxiety, special ed. Assessment What has happened this shift: Pt up on the unit pacing the halls wearing a headset at the start of the shift. Pt is medication compliant. He request Nicotine Paul q 2hours. He has been on the phone twice each time he requires redirection to not be loud on the phone while pacing the halls. Pt seen dancing the halls and blocking others in the basurto while dancing in front of them. Pt requires redirection multiple times prior to lunch. ' S/I, H/I: Denies A/VH: Denies Sleep: Rested briefly once after breakfast ADL's: Independent. Group attendance: N/A Were Meds taken: Yes Any med S/E: None noted or reported Mental Status Exam Appearance: Short dark curly haired male wearing personal clothing with a flannel shirt Eye contact: Good Behavior: Remains somewhat labile and intrusive Speech: Normal rate and rhythm can be loud and pressured Mood: Anxious Affect: Congruent with mood. Thought process: Grandiose Thought Content: Focused on discharge. Cognition: A&Ox4 Insight: Poor Judgment: Poor Therapeutic interventions PRN's: Nicotine lozenges. Interventions: Provided 1:1 morning assessment with therapeutic communication and active listening, medication administration/education/monitoring, encouraged shower, behavior monitoring and intervention as needed, redirection, Q 15 minute safety checks. Restraints/seclusion/emergency medication: None Justification of Continued Inpatient Treatment: Patient is exhibiting manic symptoms, disorganized, confused, agitated and unable to verbalize a plan for food clothing or group home. Patient has a long history of mental illness, "bipolar ". Patient has been noncompliant with treatment providers in [facility]. Patient needs crisis interruption and medication management and monitoring in a safe and therapeutic environment.
--- NOTE | 2020-09-07 12:54 | NUR ---
Pt decided at the last minute that he was not going to take his NOON dose of Olanzapine. Pt states, "I am not here for a medication change." He further stated he takes, Depakote, Vistaril, Risperdal and Trazodone when "I am having an episode."
[2020-09-07 19:00] VITALS: BP 148/91
[2020-09-07] MEDS: hydrOXYzine 25 MG tablet PO PRN (22:33)
[2020-09-07] MEDS: mag hydrox/Alum hydrox/simeth 30ml oral suspension PO PRN (23:23)
--- NOTE | 2020-09-08 01:13 | NUR ---
Nursing Progress Note Legal hold: 5250 Client on involuntary status for DTS. Report received from Nieves JOHNSON with use of SBAR Why are they here: Pt admitted 09/02 to [facility] on a 5150 for GD from the ER. Pt exhibits manic symptoms, disorganized, confused, agitated, long history of bipolar since 15 yrs old, noncompliant with treatment. Pt is "[place] hopping [place]." Pt has history of Bipolar, OCD, ADHD, anxiety, special ed. Assessment What has happened this shift: Pt up on the unit pacing the halls wearing a headset at the start of the shift. Pt is medication compliant. He requests Nicotine Paul q 2hours. He has been on the phone once while still pacing the halls. Pt. has also been making some grunting noises on/off. 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 S/I, H/I: Denies A/VH: Denies Sleep: Did not sleep until ativan given ADL's: Independent. Group attendance: N/A Were Meds taken: Yes Any med S/E: None noted or reported Mental Status Exam Appearance: Short dark curly haired male wearing personal clothing with a flannel shirt Eye contact: Good Behavior: Remains somewhat labile and intrusive Speech: Normal rate and rhythm can be loud and pressured Mood: Anxious Affect: Congruent with mood. Thought process: Tangential Thought Content: Focused on discharge. Cognition: A&Ox4 Insight: Poor Judgment: Poor Therapeutic interventions PRN's: Nicotine lozenges. Interventions: Provided 1:1Assessment with therapeutic communication and active listening, medication administration/education/monitoring, encouraged shower, behavior monitoring and intervention as needed, redirection, Q 15 minute safety checks. Restraints/seclusion/emergency medication: None Justification of Continued Inpatient Treatment: Patient is exhibiting manic symptoms, disorganized, confused, agitated and unable to verbalize a plan for food clothing or [facility]. Patient has a long history of mental illness, "bipolar ". Patient has been noncompliant with treatment providers in [facility]. Patient needs crisis interruption and medication management and monitoring in a safe and therapeutic environment. Addendum: 09/08/20 at 0245 by Margaret Piper RN Patient has also received prn atarax and ativan this shift.
[2020-09-08] MEDS: OLANZapine 2.5MG tablet PO SCH ×3 (07:12→20:22)
[2020-09-08] MEDS: LORazepam 1 MG tablet PO PRN (07:12)
[2020-09-08] MEDS: nicotine 21mg patch - 24 hr TD SCH (07:12)
[2020-09-08] MEDS: divalproex sod 250mg ER (24-hour) tablet PO SCH ×2 (07:13→20:22)
[2020-09-08] MEDS: NICOTINE POLACRILEX 2 MG LOZENGE BC PRN ×6 (07:13→21:30)
[2020-09-08 07:54] VITALS: BP 131/97
--- NOTE | 2020-09-08 15:54 | NUR ---
Nursing Progress Note Legal hold: 5250 Client on involuntary status for DTS. Report received from FILOMENA Maharaj with use of SBAR Why are they here: Pt admitted today to [facility] on a 5150 for GD from the ER. Pt exhibits manic symptoms, disorganized, confused, agitated, long history of bipolar since 15 yrs old, noncompliant with treatment. Pt is "[place] Pt has history of Bipolar, OCD, ADHD, anxiety, special ed. Assessment What has happened this shift: Pt up on the unit pacing the halls wearing a headset at the start of the shift and for the rest of the day shift. Pt is medication compliant. he states, "look it I'm going to take that medicine because I know it is the only way I can get out of here." He continues to request Nicotine Paul q 2 hours. S/I, H/I: Denies A/VH: Denies Sleep: Did not sleep this shift ADL's: Independent. Group attendance: N/A Were Meds taken: Yes Any med S/E: None noted or reported Mental Status Exam Appearance: Short dark curly haired male wearing personal clothing with a flannel shirt Eye contact: Good Behavior: Remains somewhat labile; less intrusive Speech: Normal rate and rhythm can be loud and pressured Mood: Anxious Affect: Congruent with mood. Thought process: Grandiose Thought Content: Focused on discharge. Cognition: A&Ox4 Insight: Poor Judgment: Poor Therapeutic interventions PRN's: Nicotine lozenges, Ativan 1mg Interventions: Provided 1:1 morning assessment with therapeutic communication and active listening, medication administration/education/monitoring, encouraged shower, behavior monitoring and intervention as needed, redirection, Q 15 minute safety checks. Restraints/seclusion/emergency medication: None Justification of Continued Inpatient Treatment: Patient is exhibiting manic symptoms, disorganized, confused, agitated and unable to verbalize a plan for food clothing or long term. Patient has a long history of mental illness, "bipolar ". Patient has been noncompliant with treatment providers in [facility]. Patient needs crisis interruption and medication management and monitoring in a safe and therapeutic environment.
[2020-09-08] MEDS: mag hydrox/Alum hydrox/simeth 30ml oral suspension PO PRN (17:07)
[2020-09-08 19:24] VITALS: BP 142/82
--- NOTE | 2020-09-08 23:32 | NUR ---
Nursing Progress Note Legal hold: 5250 Client on involuntary status for DTS. Report received from FILOMENA Pickett with use of SBAR Why are they here: Pt admitted today to [facility] on a 5150 for GD from the ER. Pt exhibits manic symptoms, disorganized, confused, agitated, long history of bipolar since 15 yrs old, noncompliant with treatment. Pt is "Tree hopping [place] tree [place] tree to get [place] the [place]." Pt has history of Bipolar, OCD, ADHD, anxiety, special ed. Assessment What has happened this shift:Pt was in the hallway at change of shift requesting to shower, pt showered but refused clean scrubs offered. pt spent some time talking on the phone with his mother. Pt socializes with peers and had a snack in the group room. Pt listened to headphones and then watched fireworks out the window before going to bed. S/I, H/I: Denies A/VH: Denies Sleep: Did not sleep this shift ADL's: Independent. Group attendance: N/A Were Meds taken: Yes Any med S/E: None noted or reported Mental Status Exam Appearance: Short dark curly haired male wearing personal clothing with a flannel shirt Eye contact: Good Behavior: pleasant cooperative directable Speech: Normal rate and rhythm can be loud and pressured Mood: Anxious Affect: Congruent with mood. Thought process: Grandiose Thought Content: Focused on discharge. Cognition: A&Ox4 Insight: Poor Judgment: Poor Therapeutic interventions PRN's: Nicotine lozenges Interventions: Provided 1:1 morning assessment with therapeutic communication and active listening, medication administration/education/monitoring, encouraged shower, behavior monitoring and intervention as needed, redirection, Q 15 minute safety checks. Restraints/seclusion/emergency medication: None Justification of Continued Inpatient Treatment: Patient is exhibiting manic symptoms, disorganized, confused, agitated and unable to verbalize a plan for food clothing or jail. Patient has a long history of mental illness, "bipolar ". Patient has been noncompliant with treatment providers in [facility]. Patient needs crisis interruption and medication management and monitoring in a safe and therapeutic environment. Addendum: 09/09/20 at 0608 by Iris Ramos RN Pt was told he could not have a snack by SCOTT Silva and pt became agitated and began pacing and growling in the hallway. Attempted to talk with patient and he flipped this sign writer hand off and continued to pace. Pt was offered a prn and he declined.
[2020-09-09] MEDS: NICOTINE POLACRILEX 2 MG LOZENGE BC PRN ×7 (06:54→20:34)
[2020-09-09 07:11] VITALS: BP 124/75
[2020-09-09] MEDS: divalproex sod 250mg ER (24-hour) tablet PO SCH ×2 (08:50→20:25)
[2020-09-09] MEDS: OLANZapine 2.5MG tablet PO SCH ×3 (08:50→20:25)
[2020-09-09] MEDS: nicotine 21mg patch - 24 hr TD SCH (08:55)
[2020-09-09] MEDS: hydrOXYzine 25 MG tablet PO PRN (14:41)
--- NOTE | 2020-09-09 18:00 | NUR ---
Nursing Progress Note Legal hold: 5250 Client on involuntary status for DTS. Report received from RN with use of SBAR Why are they here: Pt admitted today to [facility] on a 5150 for GD from the ER. Pt exhibits manic symptoms, disorganized, confused, agitated, long history of bipolar since 15 yrs old, noncompliant with treatment. Pt is "Tree hopping [place] tree [place] tree to get [place] the [place]." Pt has history of Bipolar, OCD, ADHD, anxiety, special ed. Assessment What has happened this shift: Received Pt awake and pacing the halls in no distress at the beginning of the shift. Pt cooperative with vitals and medications. Pt remains labile and intrusive, ruminating on discharge, growing marijuana, bad relationship with father, smoking and how he ca get back home. Pt asks questions that were answered multiple times throughout the day. Pt does not plan on taking meds when home and wants to grow and smoke marijuana. S/I, H/I: Denies A/VH: Denies Sleep: Did not sleep this shift ADL's: Independent Group attendance: N/A Were Meds taken: Yes Any med S/E: None noted or reported Mental Status Exam Appearance: Unkempt in green scrubs Eye contact: Good Behavior: Remains labile and intrusive Speech: Can be loud and pressured, rude Mood: Elevated, Anxious Affect: Congruent with mood Thought process: Grandiose Thought Content: Focused on discharge, smoking Cognition: A&Ox4 Insight: Poor Judgment: Poor Therapeutic interventions PRN's: Nicotine lozenges, Atarax Interventions: Provided 1:1 morning assessment with therapeutic communication and active listening, medication administration/education/monitoring, encouraged shower, behavior monitoring and intervention as needed, redirection, Q 15 minute safety checks. Restraints/seclusion/emergency medication: None Justification of Continued Inpatient Treatment: Patient is exhibiting manic symptoms, disorganized, confused, agitated and unable to verbalize a plan for food clothing or detention. Patient has a long history of mental illness, and noncompliance with Tx. Patient needs crisis interruption and medication management and monitoring in a safe and therapeutic environment.
[2020-09-09 19:20] VITALS: BP 146/88
--- NOTE | 2020-09-09 22:37 | NUR ---
Nursing Progress Note Legal hold: 5250 Client on involuntary status for DTS. Report received from Calderon JOHNSON with use of SBAR Why are they here: Pt admitted today to [facility] on a 5150 for GD from the ER. Pt exhibits manic symptoms, disorganized, confused, agitated, long history of bipolar since 15 yrs old, noncompliant with treatment. Pt is "Tree hopping [place] tree [place] tree to get [place] the [place]." Pt has history of Bipolar, OCD, ADHD, anxiety, special ed. Assessment What has happened this shift:Pt was at the nurses station demanding a nicotine lozenge. Requested that patient give me a minute to look at his chart as I had just come on the floor and he became agitated stating "thats what I do, I get my nicotine and headphones, just get them!" Pt was told he had to wait a few minutes and he began pacing back and forth in front of the nurses station staring at me as if to intimidate me. Pt was given his lozenge a few minutes later. He spent time dancing around the unit with headphones and attempting to antagonize patients and it service continuity supervisor. Patient called his parents and was loudly talking after other patients went to bed. He was asked to lower his voice and continued to speak loudly before he ended his call. Patient then requested to stay up late to watch tv and was told he couldnt due to his behavior during this evening and this morning flipping off staff and calling staff names. Pt initially denied this then states "Ya ok, Im sorry about that but Im from [place], this is how people from [place] are, and I guess Bipolar is my label. The people in [place] told me that [place] people are trying to label everyone." Pt requested an atarax and was given prn atarax before going to bed. S/I, H/I: Denies A/VH: Denies Sleep: see sleep hours ADL's: Independent Group attendance: N/A Were Meds taken: Yes Any med S/E: None noted or reported Mental Status Exam Appearance: Unkempt in green scrubs Eye contact: Good Behavior: Remains labile and intrusive attempting to antagonize other patients and staff Speech: Can be loud and pressured, rude Mood: Elevated, Anxious Affect: Congruent with mood Thought process: Grandiose Thought Content: Focused on discharge, smoking Cognition: A&Ox4 Insight: Poor Judgment: Poor Therapeutic interventions PRN's: Nicotine lozenges, Atarax Interventions: Provided 1:1 morning assessment with therapeutic communication and active listening, medication administration/education/monitoring, encouraged shower, behavior monitoring and intervention as needed, redirection, Q 15 minute safety checks. Restraints/seclusion/emergency medication: None Justification of Continued Inpatient Treatment: Patient is exhibiting manic symptoms, disorganized, confused, agitated and unable to verbalize a plan for food clothing or group home. Patient has a long history of mental illness, and noncompliance with Tx. Patient needs crisis interruption and medication management and monitoring in a safe and therapeutic environment. Addendum: 09/10/20 at 0616 by Iris Ramos RN Pt woke up about 4:30 am and proceeded to cough loudly and growl in the hallway and then said he was having an asthma attack and needed a nicotine lozenge. Pt was given lozenge then asked for headphones and began pacing and coughing and singing in the hallway. Pt was asked to be quiet as other patients were sleeping and he postures aggressively with staff and states "what are you gonna do?" Pt was asked if he wants an atarax and he screams "get away from me fat ass go eat a cheeto! get back in your little room!" At that point patient was instructed to return the headphones and he replied 'try to take them off me!" and he walked away down the basurto. We followed patient down the basurto and took the headphones. He then attempted to posture towards this technical publications writer attempting to intimidate. Another nurse came out of the observation room and patient states "what are you gonna do? Im not scared of you! give me a shot in the butt!" Pt was instructed by staff to go to his room and staff walked with him to his room where he stayed coughing loudly for a few minutes. Pt had to be redirected to his room a couple of times but was no longer coughing or singing loudly in the hallway.
[2020-09-10] MEDS: NICOTINE POLACRILEX 2 MG LOZENGE BC PRN ×5 (04:33→16:41)
[2020-09-10] MEDS ORDERED: LORazepam 1 MG tablet PO ONE (07:00)
[2020-09-10] MEDS ORDERED: diphenhydrAMINE 25mg capsule PO ONE (07:00)
[2020-09-10] MEDS ORDERED: haloperidol 5mg tablet PO ONE (07:00)
[2020-09-10] MEDS: nicotine 21mg patch - 24 hr TD SCH (07:13)
[2020-09-10] MEDS: divalproex sod 250mg ER (24-hour) tablet PO SCH ×2 (07:40→20:19)
[2020-09-10] MEDS: OLANZapine 2.5MG tablet PO SCH ×3 (07:40→20:19)
--- NOTE | 2020-09-10 12:24 | NUR ---
PROBABLE CAUSE HEARING Patients Name: Naveen Dalal Admission Date: 09/02/20 Date of 5150: 09/02/20 Written by: [facility] Criteria: GD Summary of Facts: 1798 for DTS at [facility]. Naveen is exhibiting manic symptoms, disorganized, confused, agitated, unable to verbalize plan for food, nursing home, clothing. Parents report Chschristo has a long history of mental illness, bipolar since he was 15-years old, non compliant with treatment providers in [facility] and past hx of multiple psychiatric hospitalizations. [place] Date of 5250: 09/05/20 Written by: Rigo Criteria: GD, DTS Summary of Facts: Pt is cursing at security,staff. Threatening. Pt has required daily IM medication. Pt is unable to successfully navigate his environment. Continues to be manic. Diagnosis: Bipolar disorder, current episode manic severe with psychotic features Behavior during past 48 HRS: Continues to present as manic, aggressive, posturing toward staff and yelling at his parents on the phone. He was flipping off staff and told that he could not stay up late. He told staff yesterday that he plans to stop his medication when he gets out and smoke pot instead. He is medication compliant while here. His dc plan is to hitchhike back to [facility] FOOD: 75 SLEEPIN ADLS: IND JAIL: homeless MEDICATION DOSAGE FREQUENCY DURATION Zyprexa 7.5 mg po tid Depakpote ER 1,000 mg po bid Atarax 25 mg prn last took yesterday Ativan 1 mg prn last took two days ago
[2020-09-10] MEDS ORDERED: albuterol 2.5 MG/3 ML nebule NEB PRN (16:05)
--- NOTE | 2020-09-10 17:54 | NUR ---
Nursing Progress Note: Legal hold: 525 Client on involuntary status for DTS. Report received from FILOMENA Landa with use of SBAR. Why are they here: Pt admitted today to [facility] today on 5150 for GD from the ER at 1430. Pt exhibits manic symptoms, disorganized, confused, agitated, long history of bipolar since 15 yrs old, noncompliant with treatment. Pt is "Tree hopping [place] tree [place] to get [place]." Pt has history of Bipolar, OCD, ADHD, anxiety, special ed. Pt is not cooperative for the admission process. patient often loud and accusing and profane. Assessment What has happened this shift: RN received pt. awake and pacing basurto at start of the shift. Pt. is agitated and demanding nicotine and that his water be filled. Pt. calling staff bitches and throwing water pitcher on the ground. Pt. yells, You have to release me! I came here voluntary and now its time for me to leave! security called and pt. escorted back to room. Pt. became defiant initially and then began to cry, stating, I just want to , I dont want to live My dad hates me, I have no friends. RN received one time order for Haldol 10mg, Ativan 2mg, and Benadryl 50mg PO. Pt. received with good effect. Pt. then switches to Turkmen accent and states, Its all the money, money pollutes the world, I hate money Pt. talked about his desire to smoke cannabis stating that he just wants to some dabs. Pt. slept approx. 2 hours. Pt. was socially withdrawn the rest of the day, pacing the basurto while listening to headphones. S/I, H/I: Denies A/VH: Denies Sleep: 7 hrs on NOC shift. Pt. napped approx. 2 hours on day shift. ADL's: Independent. Group attendance: No Were meds taken: Yes Any med S/E: Denies Mental Status Exam Appearance: Disheveled, wearing green scrubs, and long sleeve shirt. Eye contact: Good Behavior: Pt. is labile, intrusive with staff and peers, demanding, and flippant. Pt. threw water pitcher on the floor and is verbally abusive towards staff and peers. Pt. tearful at times. Speech: Hyperverbal, pressured speech, sometimes talking in a Turkmen accent. Mood: Agitated, depressed, anxious. Affect: Congruent with mood. Thought process: Disorganized, grandiose, tangential. Thought Content: Focused on discharge. Cognition: A&Ox4 Insight: Poor Judgment: Poor Therapeutic interventions PRN's: Haldol 10mg, Ativan 2mg, Benadryl 50mg PO Interventions: 1:1 assessment, therapeutic communication, medication administration/education/monitoring, encouragement to come to meals and participate in unit activities, behavior monitoring and intervention as needed, distraction, redirection, Q 15 minute safety checks. Restraints/seclusion/emergency medication: None Justification of Continued Inpatient Treatment: Patient is exhibiting manic symptoms, disorganized, confused, agitated and unable to verbalize a plan for food clothing or correction. Patient has a long history of mental illness, "bipolar ". Patient has been noncompliant with treatment providers in [facility]. Patient needs crisis interruption and medication management and monitoring in a safe and therapeutic environment.
[2020-09-10 19:03] VITALS: BP 133/67
[2020-09-10] MEDS: traZODone 50mg tablet PO PRN (20:19)
--- NOTE | 2020-09-10 20:56 | NUR ---
Nursing Progress Note: Legal hold: 525 Client on involuntary status for DTS. Report received from FILOMENA Landa with use of SBAR. Why are they here: Pt admitted today to [facility] today on 5150 for GD from the ER at 1430. Pt exhibits manic symptoms, disorganized, confused, agitated, long history of bipolar since 15 yrs old, noncompliant with treatment. Pt is "Tree hopping [place] tree [place] tree to get [place] the [place]." Pt has history of Bipolar, OCD, ADHD, anxiety, special ed. Pt is not cooperative for the admission process. patient often loud and accusing and profane. Assessment What has happened this shift: Pt was in his room at change of shift resting. Pt came out of his room briefly and spoke with his mother. Attempted to talk to patient and he looked and me and didnt answer. Pt layed down in bed at med pass and initially refused meds and then jumped up quickly out of bed and said "Oh can I have a snack? maybe if I take my meds I can have peanut butter and jelly or a bag of chips?" I answered that snack had been put away but I would get him a snack if hed like. pt took his meds then complained about his water being old and handed back his pitcher and I returned the pitcher to his night stand and he began shouting "Dont put that water by my bible! What is wrong with you!" I left the room. pt went to bed. S/I, H/I: Denies A/VH: Denies Sleep: see sleep hours . ADL's: Independent. Group attendance: No Were meds taken: Yes Any med S/E: Denies Mental Status Exam Appearance: Disheveled, wearing green scrubs, and long sleeve shirt. Eye contact: Good Behavior: Pt. is labile, intrusive with staff and peers, demanding, and flippant. Pt is verbally abusive towards staff and peers. Speech: Hyperverbal, pressured speech, sometimes talking in a Alexx accent. Mood: Agitated, depressed, anxious. Affect: Congruent with mood. Thought process: Disorganized, grandiose, tangential. Thought Content: Focused on discharge. Cognition: A&Ox4 Insight: Poor Judgment: Poor Therapeutic interventions PRN's:trazodone Interventions: 1:1 assessment, therapeutic communication, medication administration/education/monitoring, encouragement to come to meals and participate in unit activities, behavior monitoring and intervention as needed, distraction, redirection, Q 15 minute safety checks. Restraints/seclusion/emergency medication: None Justification of Continued Inpatient Treatment: Patient is exhibiting manic symptoms, disorganized, confused, agitated and unable to verbalize a plan for food clothing or custodial. Patient has a long history of mental illness, "bipolar ". Patient has been noncompliant with treatment providers in [facility]. Patient needs crisis interruption and medication management and monitoring in a safe and therapeutic environment.
[2020-09-11 07:45] VITALS: BP 130/71
[2020-09-11] MEDS: OLANZapine 2.5MG tablet PO SCH ×3 (07:48→20:25)
[2020-09-11] MEDS: divalproex sod 250mg ER (24-hour) tablet PO SCH ×2 (07:50→20:25)
[2020-09-11] MEDS: nicotine 21mg patch - 24 hr TD SCH (08:00)
[2020-09-11] MEDS: NICOTINE POLACRILEX 2 MG LOZENGE BC PRN ×5 (09:39→20:26)
--- NOTE | 2020-09-11 12:55 | NUR ---
Nursing Progress Note: Legal hold: 5250 Client on involuntary status for DTS. Report received from FILOMENA Landa with use of SBAR. Why are they here: Pt admitted today to [facility] today on 5150 for GD from the ER at 1430. Pt exhibits manic symptoms, disorganized, confused, agitated, long history of bipolar since 15 yrs old, noncompliant with treatment. Pt is "Tree hopping [place] tree [place] tree to get [place]." Pt has history of Bipolar, OCD, ADHD, anxiety, special ed. Pt is not cooperative for the admission process. patient often loud and accusing and profane. Assessment What has happened this shift: Patient is awake and pacing basurto at start of the shift. Pt. is agitated and demanding nicotine and that his water be filled. I woke up dreaming of smoking I need a lozenge" Patient became loud and was cursing, this medical technical writer gave clear and strict boundaries for the day, patient clearly remembers the day he had yesterday and does not want to repeat it. Patient is asking this medical technical writer for advise on how to get "out of this place". This medical technical writer went on to explain the process for every patient, Naveen did do some listening and a lot of talking. Patient was given the advise to come up with a reasonable and reliable safe discharge, to stay on tract and not keep changing his plan, with that is place you may be ready to leaving in the near future, this medical technical writer explain that patients do not stay here forever. Patient took am medication this medical technical writer did some medication education, patient is knowledgeable about psych meds, as he has been on them since he was 15, per patient. Naveen is fearful of needles and is not interested in a GUTI[place]ES, although is main issue is medication compliance. S/I, H/I: Denies A/VH: Denies Sleep: 7 hrs on NOC shift. Pt. napped approx. 2 hours on day shift. ADL's: Independent. Group attendance: No Were meds taken: Yes Any med S/E: Denies Mental Status Exam Appearance: Disheveled, wearing green scrubs, and long sleeve shirt. Eye contact: Good Behavior: Pt. is labile, intrusive with staff Speech: Hyperverbal, pressured speech, sometimes talking in a [place] accent. Mood: Agitated, depressed, anxious. Affect: Congruent with mood. Thought process: Disorganized, grandiose, tangential. Thought Content: Focused on discharge. Cognition: A&Ox4 Insight: Poor Judgment: Poor Therapeutic interventions PRN's: none yet today Interventions: 1:1 assessment, therapeutic communication, medication administration/education/monitoring, encouragement to come to meals and participate in unit activities, behavior monitoring and intervention as needed, distraction, redirection, Q 15 minute safety checks. Restraints/seclusion/emergency medication: None Justification of Continued Inpatient Treatment: Patient is exhibiting manic symptoms, disorganized, confused, agitated and unable to verbalize a plan for food clothing or care home. Patient has a long history of mental illness, "bipolar ". Patient has been noncompliant with treatment providers in [facility]. Patient needs crisis interruption and medication management and monitoring in a safe and therapeutic environment.
[2020-09-11] MEDS: hydrOXYzine 25 MG tablet PO PRN (16:15)
[2020-09-11 20:11] VITALS: BP 150/69
[2020-09-11] MEDS: traZODone 50mg tablet PO PRN (20:25)
--- NOTE | 2020-09-12 01:46 | NUR ---
Nursing Progress Note: Legal hold: 5250 Client on involuntary status for DTS. Report received from ALEX Patel with use of SBAR. Why are they here: Pt admitted today to [facility] today on 5150 for GD from the ER at 1430. Pt exhibits manic symptoms, disorganized, confused, agitated, long history of bipolar since 15 yrs old, noncompliant with treatment. Pt is "Tree hopping [place] get [place]." Pt has history of Bipolar, OCD, ADHD, anxiety, special ed. Pt is not cooperative for the admission process. patient often loud and accusing and profane. Assessment What has happened this shift: Patient is awake and dancing in the hallways listening to music at change of shift. Pt seen/heard laughing loudly to self. Pt is irritable with staff and is heard yelling on phone with mom stating, Im so fucking tired of being labeled as mentally ill. Pt then later heard stating maybe I should go to [place] where those tribes have nothing and just live there. Pt seen later pacing halls appearing anxious. Pt called his father twice this shift and both times began yelling and crying. Pt denies SI/SH/HI/AVH. Pt appears to be increasingly agitated when speaking with family members and has labile affect; quickly switches from crying to laughing with tangential, hyperverbal speech. Reports Im oriental orthodox now. I was always oriental orthodox and now Im gonna start going. Pt states per he is supposed to discharge on Wednesday. Frequently requests nicotine lozenges. Pt also heard speaking in a Alexx accent. S/I, H/I: Denies A/VH: Denies ADL's: Independent. Group attendance: NA Were meds taken: Yes Any med S/E: None reported or observed Mental Status Exam Appearance: clean appearing in green scrubs, black SF hat, wearing headphones Eye contact: Good Behavior: Pt. is labile Speech: Hyperverbal, tangential pressured speech, sometimes talking in a Alexx accent. Mood: Agitated, depressed, anxious. Affect: Congruent with mood, labile Thought process: tangential Thought Content: Focused on discharge. Cognition: A&Ox4 Insight: Poor Judgment: Poor Interventions PRN's: nicotine lozenge, milk of magnesia Interventions: 1:1 assessment, therapeutic communication, medication administration/education/monitoring, encouragement to come to meals and participate in unit activities, behavior monitoring and intervention as needed, distraction, redirection, Q 15 minute safety checks. Restraints/seclusion/emergency medication: None Justification of Continued Inpatient Treatment: Patient is exhibiting manic symptoms, disorganized, confused, agitated and unable to verbalize a plan for food clothing or skilled nursing. Patient has a long history of mental illness, "bipolar ". Patient has been noncompliant with treatment providers in [facility]. Patient needs crisis interruption and medication management and monitoring in a safe and therapeutic environment.
[2020-09-12] MEDS: NICOTINE POLACRILEX 2 MG LOZENGE BC PRN ×4 (04:41→16:24)
--- NOTE | 2020-09-12 05:41 | NUR ---
Pt approached nurses station and states "I think I came up with a plan. My plan is to leave here, cross the bridge and drink out of the river and bathe in it and live off of [place] and cheap cigarettes with my $400. Then, when my money is about to run out I'll take a bus to [place] and I'll either there or have my dad pick me up." This RN and induction machine operator attempted to redirect pt, pt was unwilling to be redirected and then asked for the headphones. Pt then seen pacing halls and listening to music.
[2020-09-12 07:51] VITALS: BP 128/92
[2020-09-12] MEDS: OLANZapine 2.5MG tablet PO SCH ×3 (08:09→21:24)
[2020-09-12] MEDS: divalproex sod 250mg ER (24-hour) tablet PO SCH (08:10)
[2020-09-12] MEDS: nicotine 21mg patch - 24 hr TD SCH (08:55)
--- NOTE | 2020-09-12 14:44 | NUR ---
Nursing Progress Note Legal hold: 5250 Client on involuntary status for DTS. Report received from RN with use of SBAR Why are they here: Pt admitted today to [facility] on a 5150 for GD from the ER. Pt exhibits manic symptoms, disorganized, confused, agitated, long history of bipolar since 15 yrs old, noncompliant with treatment. Pt is "[place] hopping [place] Pt has history of Bipolar, OCD, ADHD, anxiety, special ed. Assessment What has happened this shift: Received Pt awake and pacing the halls in no distress at the beginning of the shift. Pt cooperative with vitals and medications in AM and at lunch. Pt was walking halls in AM and laughing loudly, then would approach staff and demand discharge stating I came here voluntarily I dont belong here. Pt made provocative gestures like shooting a pistol at staff. Pt becomes irritated at limit setting, but is eventually cooperative. Pt able to calm and took a nap. Pt made multiple phone calls to mother today resulting in increased stress and irritability. Pt talks about wanting his independence from his parents and then will complain that his father wont let his live with them. S/I, H/I: Denies A/VH: Denies Sleep: Napped ADL's: Independent Group attendance: N/A Were Meds taken: Yes Any med S/E: None noted or reported Mental Status Exam Appearance: Unkempt in green scrubs Eye contact: Good Behavior: Remains labile and intrusive Speech: Can be loud and pressured, rude Mood: Elevated, Anxious Affect: Congruent with mood Thought process: Grandiose Thought Content: Focused on discharge Cognition: A&Ox4 Insight: Poor Judgment: Poor Therapeutic interventions PRN's: Nicotine lozenges Interventions: Provided 1:1 morning assessment with therapeutic communication and active listening, medication administration/education/monitoring, encouraged shower, behavior monitoring and intervention as needed, redirection, Q 15 minute safety checks. Restraints/seclusion/emergency medication: None Justification of Continued Inpatient Treatment: Patient is exhibiting manic symptoms, disorganized, confused, agitated and unable to verbalize a plan for food clothing or intermediate. Patient has a long history of mental illness, and noncompliance with Tx. Patient needs crisis interruption and medication management and monitoring in a safe and therapeutic environment.
[2020-09-12] MEDS: hydrOXYzine 25 MG tablet PO PRN (15:05)
[2020-09-12] MEDS: LORazepam 1 MG tablet PO PRN (16:24)
[2020-09-12] MEDS ORDERED: divalproex sodium 500mg tablet.DR PO SCH (17:30)
[2020-09-12] MEDS: divalproex 250mg tablet, delayed-release PO SCH (17:36)
[2020-09-12] MEDS: traZODone 50mg tablet PO PRN (21:24)
--- NOTE | 2020-09-12 22:13 | NUR ---
Nursing Progress Note Legal hold: 5250 Client on involuntary status for DTS. Report received from ALEX Garcia with use of SBAR Why are they here: Pt admitted today to [facility] on a 5150 for GD from the ER. Pt exhibits manic symptoms, disorganized, confused, agitated, long history of bipolar since 15 yrs old, noncompliant with treatment. Pt is "[place] hopping [place]." Pt has history of Bipolar, OCD, ADHD, anxiety, special ed. Assessment What has happened this shift: Patient was up for dinner then retired to room and slept. Patient awoken for med pass and 1:1 Interview at bedside. Patient is well oriented, he minimizes any problems, save for "I just want to go home." Speech is pressured. Patient complied with taking medications. When this policy writer sales started asking questions the patient interrupted and stated, I'm not suicidal, I'm not hallucinating." Patient states a BM this am. He presents as sleepy but labile. When this policy writer sales interviewed patients roommate this patient complained loudly. S/I, H/I: Denies. A/VH: Denies. Sleep: Sleeping following dinner, will tally at 0500 hours. ADL's: Independent. Group attendance: No group on sink cutter. Were Meds taken: Yes, medication compliant. Any med S/E: None reported or observed. Mental Status Exam Appearance: Disheveled looking wearing green scrubs. Eye contact: Poor. Behavior: Remains labile and intrusive. Speech: Pressured, loud at times. Mood: Depressed, anxious. Affect: Flat. Thought process: Difficult to eval, patient not very cooperative. Thought Content: Wants to go home. Cognition: A&Ox4. Insight: Poor. Judgment: Poor. Therapeutic interventions PRN's: None. Interventions: Provided 1:1 morning assessment with therapeutic communication and active listening, medication administration/education/monitoring, encouraged shower, behavior monitoring and intervention as needed, redirection, Q 15 minute safety checks. Restraints/seclusion/emergency medication: None Justification of Continued Inpatient Treatment: Patient is exhibiting manic symptoms, disorganized, confused, agitated and unable to verbalize a plan for food clothing or fci. Patient has a long history of mental illness, and noncompliance with Tx. Patient needs crisis interruption and medication management and monitoring in a safe and therapeutic environment.
[2020-09-13 07:00] VITALS: BP 113/78
[2020-09-13] MEDS: OLANZapine 2.5MG tablet PO SCH ×3 (07:52→20:47)
[2020-09-13] MEDS: divalproex 250mg tablet, delayed-release PO SCH ×2 (07:52→16:43)
[2020-09-13] MEDS: nicotine 21mg patch - 24 hr TD SCH (08:00)
[2020-09-13] MEDS: NICOTINE POLACRILEX 2 MG LOZENGE BC PRN ×2 (08:41→18:24)
[2020-09-13] MEDS: hydrOXYzine 25 MG tablet PO PRN ×2 (13:03→18:23)
--- NOTE | 2020-09-13 14:03 | NUR ---
Nursing Progress Note: Legal hold: 5250 Client on involuntary status for DTS. Report received from FILOMENA Maharaj with use of SBAR. Why are they here: Pt admitted today to [facility] today on 5150 for GD from the ER at 1430. Pt exhibits manic symptoms, disorganized, confused, agitated, long history of bipolar since 15 yrs old, noncompliant with treatment. Pt is "[place] hopping [place] to get [place] the [place]." Pt has history of Bipolar, OCD, ADHD, anxiety, special ed. Pt is not cooperative for the admission process. patient often loud and accusing and profane. Assessment What has happened this shift: Patient is awake and pacing basurto at start of the shift. patient asked for a shower first thing this morning. Naveen is less intrusive and liable today. Although Naveen made a few calls to his mother where you could over hear him asking to come home "I will pay double rent please let me come home, this place has everyone on [place] and is judging homeless people". The above of course is untrue, it is the opinion of this tag writer that patient is trying to manipulate his mom to have him come home agains medical advice. Today Naveen decline his smoking patch and did not want a lozenge originally he was quitting nicotine because when he leaves he wants to smoke his cigs. This tag writer informed patient that there was not any plan for a discharge today, therefor patient did then ask for lozenge. Patient did seem somewhat better today, this tag writer was able to hold a couple of conversation with him with out having to re-direct the conversation. S/I, H/I: Denies A/VH: Denies Sleep: 8 hrs on NOC shift. ADL's: Independent. Group attendance: No Were meds taken: Yes Any med S/E: Denies Mental Status Exam Appearance: Disheveled, wearing green scrubs, and long sleeve shirt. Eye contact: Good Behavior: Pt. is labile, intrusive with staff Speech: Hyperverbal, pressured speech, sometimes talking in a [place] accent. Mood: Agitated, depressed, anxious. Affect: Congruent with mood. Thought process: Disorganized, grandiose, tangential. Thought Content: Focused on discharge. Cognition: A&Ox4 Insight: Poor Judgment: Poor Therapeutic interventions PRN's: none yet today Interventions: 1:1 assessment, therapeutic communication, medication administration/education/monitoring, encouragement to come to meals and participate in unit activities, behavior monitoring and intervention as needed, distraction, redirection, Q 15 minute safety checks. Restraints/seclusion/emergency medication: None Justification of Continued Inpatient Treatment: Patient is exhibiting manic symptoms, disorganized, and unable to verbalize a plan for food clothing or long term. Patient has a long history of mental illness, "bipolar ". Patient has been noncompliant with treatment providers in [facility]. Patient needs crisis interruption and medication management and monitoring in a safe and therapeutic environment.
[2020-09-13 19:00] VITALS: BP 135/81
[2020-09-13] MEDS: LORazepam 1 MG tablet PO PRN (19:33)
[2020-09-13] MEDS: traZODone 50mg tablet PO PRN (20:47)
--- NOTE | 2020-09-14 01:20 | NUR ---
Nursing Progress Note Legal hold: 5250 Client on involuntary status for DTS. Report received from ALEX Patel with use of SBAR Why are they here: Pt admitted today to [facility] on a 5150 for GD from the ER. Pt exhibits manic symptoms, disorganized, confused, agitated, long history of bipolar since 15 yrs old, noncompliant with treatment. Pt is "Tree hopping [place] tree to get [place] the [place]." Pt has history of Bipolar, OCD, ADHD, anxiety, special ed. Assessment What has happened this shift: Patient is ambulatory on the unit following shift change. Agitation present following a phone call to his father. Patient requested and was given Ativan 1 mg PO for anxiety.Patient calmed. Later patient spoke with his father on the phone again, the second call went well. Patient talks of getting out to [place] in [place], get a bus to [facility] for ten bucks, etc. S/I, H/I: Denies. A/VH: Denies. Sleep: Sleeping following dinner, will tally at 0500 hours. ADL's: Independent. 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 Were Meds taken: Yes, medication compliant. Any med S/E: None reported or observed. Mental Status Exam Appearance: Disheveled looking wearing green scrubs. Eye contact: Poor. Behavior: Agitated, then calm. Speech: Pressured when upset. Mood: Anxiety, depression, then euphoric. Affect: Flat. Thought process: Delusional. Thought Content: Wants to get out, smoke, [place], return to [facility]. Cognition: Person, place, time, not well to situation. Insight: Poor. Judgment: Poor. Therapeutic interventions PRN's: Ativan, Trazadone. Interventions: Provided 1:1 morning assessment with therapeutic communication and active listening, medication administration/education/monitoring, encouraged shower, behavior monitoring and intervention as needed, redirection, Q 15 minute safety checks. Restraints/seclusion/emergency medication: None Justification of Continued Inpatient Treatment: Patient is exhibiting manic symptoms, disorganized, confused, agitated and unable to verbalize a plan for food clothing or long-term. Patient has a long history of mental illness, and noncompliance with Tx. Patient needs crisis interruption and medication management and monitoring in a safe and therapeutic environment.
[2020-09-14 07:00] VITALS: BP 177/66
[2020-09-14] MEDS: OLANZapine 2.5MG tablet PO SCH ×3 (08:15→20:49)
[2020-09-14] MEDS: divalproex 250mg tablet, delayed-release PO SCH ×2 (08:15→16:51)
--- NOTE | 2020-09-14 11:47 | NUR ---
Nursing Progress Note: Legal hold: 5250 Client on involuntary status for DTS. Report received from FILOMENA Maharaj with use of SBAR. Why are they here: Pt admitted today to [place] for [facility] today on 5150 for GD from the ER at 1430. Pt exhibits manic symptoms, disorganized, confused, agitated, long history of bipolar since 15 yrs old, noncompliant with treatment. Pt is "Tree hopping [place] tree to get [place] the [place]." Pt has history of Bipolar, OCD, ADHD, anxiety, special ed. Pt is not cooperative for the admission process. patient often loud and accusing and profane. Assessment What has happened this shift: Patient is awake and pacing basurto at start of the shift. Patient asked for a shower first thing this morning. Naveen is less intrusive and liable today. Naveen is seen pacing the hallway with the radio head set on. Self isolating more today than yesterday. S/I, H/I: Denies A/VH: Denies Sleep: 7.75 hrs on NOC shift. ADL's: Independent. Group attendance: No Were meds taken: Yes Any med S/E: Denies Mental Status Exam Appearance: Disheveled, wearing green scrubs, and red hat Eye contact: Good Behavior: Pt. is labile, but re-directable Speech: Hyperverbal, pressured speech Mood: Agitated, depressed, anxious. Affect: Congruent with mood. Thought process: Disorganized, grandiose, tangential. Thought Content: Focused on discharge. 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 Cognition: A&Ox4 Insight: Poor Judgment: Poor Therapeutic interventions PRN's: none yet today Interventions: 1:1 assessment, therapeutic communication, medication administration/education/monitoring, encouragement to come to meals and participate in unit activities, behavior monitoring and intervention as needed, distraction, redirection, Q 15 minute safety checks. Restraints/seclusion/emergency medication: None Justification of Continued Inpatient Treatment: Patient is exhibiting manic symptoms, disorganized, and unable to verbalize a plan for food clothing or assisted. Patient has a long history of mental illness, "bipolar ". Patient has been noncompliant with treatment providers in [facility]. Patient needs crisis interruption and medication management and monitoring in a safe and therapeutic environment.
[2020-09-14] MEDS: LORazepam 1 MG tablet PO PRN (12:24)
[2020-09-14] MEDS: NICOTINE POLACRILEX 2 MG LOZENGE BC PRN (12:24)
[2020-09-14 19:00] VITALS: BP 119/71
[2020-09-14] MEDS: traZODone 50mg tablet PO PRN (20:49)
[2020-09-14] MEDS: hydrOXYzine 25 MG tablet PO PRN (20:49)
--- NOTE | 2020-09-14 23:33 | NUR ---
Nursing Progress Note: Legal hold: 5250 Client on involuntary status for DTS. Report received from ALEX Patel with use of SBAR. Why are they here: Pt admitted today to [place] [facility] today on 5150 for GD from the ER at 1430. Pt exhibits manic symptoms, disorganized, confused, agitated, long history of bipolar since 15 yrs old, noncompliant with treatment. Pt is "Tree hopping [place] tree to tree to get [place] the [place]." Pt has history of Bipolar, OCD, ADHD, anxiety, special ed. Pt is not cooperative for the admission process. patient often loud and accusing and profane. Assessment What has happened this shift: Patient is quiet this evening. He primarily isolates to his room. He is up for snacks. Patient tells this technical writer "I'm not wearing a nicotine patch anymore, I'm not addicted to it, only to cigarettes."Patient is given Atarax for mild anxiety, Trazadone to assist with sleep. No outbursts were noted. S/I, H/I: Denies. A/VH: Denies. Sleep: Will tally at 0500 hours. ADL's: Independent. 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 Were meds taken: Yes, medication compliant. Any med S/E: Denies. Mental Status Exam Appearance: Clean, slightly disheveled looking. Eye contact: Good. Behavior: Cooperative. Speech: Hyperverbal. Mood: Friendly and cooperative. Affect: Congruent with mood. Thought process: Disorganized. Thought Content: Focused on discharge. Cognition: A&Ox4, delusional. Insight: Poor. Judgment: Poor. Therapeutic interventions PRN's: Atarax, Trazadone. Interventions: 1:1 assessment, therapeutic communication, medication administration/education/monitoring, encouragement to come to meals and participate in unit activities, behavior monitoring and intervention as needed, distraction, redirection, Q 15 minute safety checks. Restraints/seclusion/emergency medication: None Justification of Continued Inpatient Treatment: Patient is exhibiting manic symptoms, disorganized, and unable to verbalize a plan for food clothing or senior living. Patient has a long history of mental illness, "bipolar ". Patient has been noncompliant with treatment providers in [facility]. Patient needs crisis interruption and medication management and monitoring in a safe and therapeutic environment.
[2020-09-15 08:00] VITALS: BP 114/68
[2020-09-15] MEDS: OLANZapine 2.5MG tablet PO SCH ×3 (08:10→20:02)
[2020-09-15] MEDS: divalproex 250mg tablet, delayed-release PO SCH ×2 (08:10→17:32)
[2020-09-15] MEDS: LORazepam 1 MG tablet PO PRN ×2 (08:16→19:32)
--- NOTE | 2020-09-15 16:27 | NUR ---
Nursing Progress Note Legal hold: 5250 Client on involuntary status for DTS. Report received from RN with use of SBAR Why are they here: Pt admitted today to [facility] on a 5150 for GD from the ER. Pt exhibits manic symptoms, disorganized, confused, agitated, long history of bipolar since 15 yrs old, noncompliant with treatment. Pt is "[place] hopping [place] tree to get [place] the [place]." Pt has history of Bipolar, OCD, ADHD, anxiety, special ed. Assessment What has happened this shift: Received Pt in bed sleeping w/o distress at the beginning of the shift. Pt cooperative with vitals and returned to sleep. Pt woke shortly after breakfast arrived and was angry and loud, yelling that someone put a water pitcher by my Bible! Joellen said a thousand times to not put water there! [place] but Im gonna. Pt took AM meds and PRN Ativan and ate breakfast with others and returned to bed. Pt napped after lunch and woke wanting to shower and he did. Pt calm and cooperative in afternoon, coming out of his room and watching some TV. S/I, H/I: Denies A/VH: Denies Sleep: Napped ADL's: Independent Group attendance: N/A Were Meds taken: Yes Any med S/E: None noted or reported Mental Status Exam Appearance: Unkempt in green scrubs Eye contact: Good Behavior: Remains labile and intrusive Speech: Can be loud and pressured, rude Mood: Elevated, Anxious Affect: Congruent with mood Thought process: Grandiose Thought Content: Focused on discharge, food Cognition: A&Ox4 Insight: Poor Judgment: Poor Therapeutic interventions PRN's: Ativan Interventions: Provided 1:1 morning assessment with therapeutic communication and active listening, medication administration/education/monitoring, encouraged shower, behavior monitoring and intervention as needed, redirection, Q 15 minute safety checks. Restraints/seclusion/emergency medication: None Justification of Continued Inpatient Treatment: Patient is exhibiting manic symptoms, disorganized, confused, agitated and unable to verbalize a plan for food clothing or detention. Patient has a long history of mental illness, and noncompliance with Tx. Patient needs crisis interruption and medication management and monitoring in a safe and therapeutic environment.
[2020-09-15] MEDS: NICOTINE POLACRILEX 2 MG LOZENGE BC PRN (18:24)
[2020-09-15 19:26] VITALS: BP 127/80
[2020-09-15] MEDS: traZODone 50mg tablet PO PRN (20:02)
--- NOTE | 2020-09-16 00:55 | NUR ---
Nursing Progress Note: Legal hold: 5250 Client on involuntary status for DTS. Report received from ALEX Patel with use of SBAR. Why are they here: Pt admitted today to [place] [facility] today on 5150 for GD from the ER at 1430. Pt exhibits manic symptoms, disorganized, confused, agitated, long history of bipolar since 15 yrs old, noncompliant with treatment. Pt is "[place] hopping [place] to get [place]." Pt has history of Bipolar, OCD, ADHD, anxiety, special ed. Pt is not cooperative for the admission process. patient often loud and accusing and profane. Assessment What has happened this shift: Patient spent most of the evening in his bed. Before snack time, he was up and requested Ativan, says he's anxious. He went back to his room. A while later I entered his room to see if it helped, and he starts laughing for no apparent reason. Came back a few minutes later, and he was back to the Naveen, I had met earlier. He was cooperative with HS med pass, then went to sleep. S/I, H/I: Denies. A/VH: Denies. Sleep: See sleep assessment. ADL's: Independent. Group attendance: No groups on manager shift. Were meds taken: Yes. Any med S/E: None reported or observed. Mental Status Exam Appearance: Disheveled young man in green scrubs. Eye contact: Good. Behavior: Cooperative, guarded, isolative. Speech: Hyperverbal. Mood: "Fine". Affect: Congruent with mood. Thought process: Disorganized. Thought Content: Focused on discharge. Cognition: A&Ox4, delusional. Insight: Poor. Judgment: Poor. PRN's: Trazodone, Ativan. Therapeutic Interventions: 1:1 assessment, therapeutic communication, medication administration/education/monitoring, encouragement to come to meals and participate in unit activities, behavior monitoring and intervention as needed, distraction, redirection, Q 15 minute safety checks. Restraints/seclusion/emergency medication: None Justification of Continued Inpatient Treatment: Patient is exhibiting manic symptoms, disorganized, and unable to verbalize a plan for food clothing or longterm. Patient has a long history of mental illness, "bipolar ". Patient has been noncompliant with treatment providers in [facility]. Patient needs crisis interruption and medication management and monitoring in a safe and therapeutic environment.
[2020-09-16] MEDS: divalproex 250mg tablet, delayed-release PO SCH ×2 (08:11→17:27)
[2020-09-16] MEDS: OLANZapine 2.5MG tablet PO SCH ×3 (08:12→20:10)
[2020-09-16 08:52] VITALS: BP 118/83
[2020-09-16] MEDS: NICOTINE POLACRILEX 2 MG LOZENGE BC PRN ×2 (12:03→18:14)
--- NOTE | 2020-09-16 14:26 | NUR ---
Left Naveen's mom, Steffany (ph# [phone]), a message requesting a call back to discuss discharge plan. KARTHIKEYAN Landin
--- NOTE | 2020-09-16 14:30 | NUR ---
Reassessment: Pt PO ~100% avg regular diet meeting needs. LBM 09/14. No nutrition intervention at this time. Will continue to monitor. Recommendations: 1) Continue regular diet 2) Bowel care per rx 3) Weekly scaled weights Addendum: 09/16/20 at [address] Amended: Links added.
--- NOTE | 2020-09-16 16:22 | NUR ---
Nursing Progress Note Legal hold: 5250 Client on involuntary status for DTS. Report received from RN with use of SBAR Why are they here: Pt admitted today to [facility] on a 5150 for GD from the ER. Pt exhibits manic symptoms, disorganized, confused, agitated, long history of bipolar since 15 yrs old, noncompliant with treatment. Pt is "[place] hopping [place] tree to get [place]." Pt has history of Bipolar, OCD, ADHD, anxiety, special ed. Assessment What has happened this shift: Patient was asleep at change of shift and up for breakfast. Patient sleeps a lot during the day. Patient took his medications as prescribed. Patient denies suicidal/homicidal ideation. Patient states he is depressed because he wants to go back and grow his pot. He is upset that he is still here. Patient only gets up to eat. RN only saw him in the hallway once today. Patient isolates. No distress observed. S/I, H/I: Denies A/VH: Denies Sleep: Napped all day except to eat ADL's: Independent Group attendance: No Were Meds taken: Yes Any med S/E: None noted or reported Mental Status Exam Appearance: Unkempt in green scrubs Eye contact: Good Behavior: Isolative Speech: Normal Mood: Depressed Affect: Flat Thought process: Grandiose Thought Content: Getting released to grow his pot. Cognition: A&Ox4 Insight: Poor Judgment: Poor Therapeutic interventions PRN's: None Interventions: Provided 1:1 morning assessment with therapeutic communication and active listening, medication administration/education/monitoring, encouraged shower, behavior monitoring and intervention as needed, redirection, Q 15 minute safety checks. Restraints/seclusion/emergency medication: None Justification of Continued Inpatient Treatment: Patient is exhibiting manic symptoms, disorganized, confused, agitated and unable to verbalize a plan for food clothing or long-term. Patient has a long history of mental illness, and noncompliance with Tx. Patient needs crisis interruption and medication management and monitoring in a safe and therapeutic environment.
[2020-09-16] MEDS: LORazepam 1 MG tablet PO PRN (19:38)
[2020-09-16 20:08] VITALS: BP 129/80
[2020-09-16] MEDS: traZODone 50mg tablet PO PRN (20:10)
--- NOTE | 2020-09-17 01:30 | NUR ---
Nursing Progress Note: Legal hold: 5250 Client on involuntary status for DTS. Report received from ALEX Patel with use of SBAR. Why are they here: Pt admitted today to [facility] today on 5150 for GD from the ER at 1430. Pt exhibits manic symptoms, disorganized, confused, agitated, long history of bipolar since 15 yrs old, noncompliant with treatment. Pt is "Tree hopping [place] tree [place] get [place]." Pt has history of Bipolar, OCD, ADHD, anxiety, special ed. Pt is not cooperative for the admission process. patient often loud and accusing and profane. Assessment What has happened this shift: The patient spent the night in his room. He came out to ask for shower, then back to his room. Patient asks when his hold is up. Says that he's concerned he won't be stable enough yet, especially if he can't return to his parents. Patient needs a more viable plan than just leaving, so he can grow marijuana. Advised him to try and find a more realistic plan than growing pot. Continues to deny all MH symptoms. Cooperated with HS med pass, then went to sleep. S/I, H/I: Denies. A/VH: Denies. Sleep: See sleep assessment. ADL's: Independent. 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 Were meds taken: Yes. Any med S/E: None reported or observed. Mental Status Exam Appearance: Disheveled, but clean young man in green scrubs. Eye contact: Good. Behavior: Cooperative, guarded, isolative. Speech: Normal. Mood: "It's good". Affect: Congruent with mood. Thought process: Disorganized. Thought Content: Focused on discharge. Cognition: A&Ox4, delusional. Insight: Poor. Judgment: Poor. PRN's: Trazodone, Ativan. Therapeutic Interventions: 1:1 assessment, therapeutic communication, medication administration/education/monitoring, encouragement to come to meals and participate in unit activities, behavior monitoring and intervention as needed, distraction, redirection, Q 15 minute safety checks. Restraints/seclusion/emergency medication: None Justification of Continued Inpatient Treatment: Patient is exhibiting manic symptoms, disorganized, and unable to verbalize a plan for food clothing or assisted. Patient has a long history of mental illness, "bipolar ". Patient has been noncompliant with treatment providers in [facility]. Patient needs crisis interruption and medication management and monitoring in a safe and therapeutic environment.
[2020-09-17] MEDS: OLANZapine 2.5MG tablet PO SCH ×3 (07:55→20:34)
[2020-09-17] MEDS: divalproex 250mg tablet, delayed-release PO SCH ×2 (07:55→16:51)
[2020-09-17 08:34] VITALS: BP 100/56
[2020-09-17] MEDS: hydrOXYzine 25 MG tablet PO PRN (11:32)
[2020-09-17] MEDS: NICOTINE POLACRILEX 2 MG LOZENGE BC PRN ×4 (11:32→20:34)
--- NOTE | 2020-09-17 12:01 | NUR ---
Attempted to reach Naveen's mom, Steffany (ph# [phone]), again to confirm he can return to their home. Left message requesting a call back. KARTHIKEYAN Landin
--- NOTE | 2020-09-17 12:21 | NUR ---
Nursing Progress Note: Legal hold: 5250 Client on involuntary status for DTS. Report received from FILOMENA Maharaj with use of SBAR. Why are they here: Pt admitted today to [facility] for [facility] today on 5150 for GD from the ER at 1430. Pt exhibits manic symptoms, disorganized, confused, agitated, long history of bipolar since 15 yrs old, noncompliant with treatment. Pt is "Tree hopping from tree to tree to get [place] the [place]." Pt has history of Bipolar, OCD, ADHD, anxiety, special ed. Pt is not cooperative for the admission process. patient often loud and accusing and profane. Assessment What has happened this shift: Patient is awake and pacing basurto at start of the shift. Naveen is less intrusive and liable today. Naveen is seen pacing the hallway with the radio head set on. Self isolating more today than yesterday. Patient is trying to not call his family "In hopes that they will miss me and come pick me up" S/I, H/I: Denies A/VH: Denies Sleep: 8.0 hrs on NOC shift. ADL's: Independent. Group attendance: No Were meds taken: Yes Any med S/E: Denies Mental Status Exam Appearance: Disheveled, wearing green scrubs Eye contact: Good Behavior: flat Speech: soft spoken at times, Mood: depressed Affect: Congruent with mood. Thought process: Disorganized, tangential. Thought Content: Focused on discharge. 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 Restraints/seclusion/emergency medication: None Justification of Continued Inpatient Treatment: Patient has a long history of mental illness, "bipolar ". Patient has been noncompliant with treatment providers in [facility]. Patient needs crisis interruption and medication management and monitoring in a safe and therapeutic environment. Addendum: 09/17/20 at 1734 by Sharmin Owen RN Per SS patient will be discharging tomorrow via public transportation
[2020-09-17 19:26] VITALS: BP 120/79
[2020-09-17] MEDS: traZODone 50mg tablet PO PRN (20:34)
--- NOTE | 2020-09-17 22:28 | NUR ---
Nursing Progress Note: Legal hold: 5250 Client on involuntary status for DTS. Report received from FILOMENA Patel with use of SBAR. Why are they here: Pt admitted today to [facility] for [facility] today on 5150 for GD from the ER at 1430. Pt exhibits manic symptoms, disorganized, confused, agitated, long history of bipolar since 15 yrs old, noncompliant with treatment. Pt is "Tree hopping from tree to tree to get [place]." Pt has history of Bipolar, OCD, ADHD, anxiety, special ed. Pt is not cooperative for the admission process. patient often loud and accusing and profane. Assessment What has happened this shift: Pt was walking in the hallway interacting with peers at change of shift. Pt apologizes for behavior he had last week. Pt states he is hoping he can go home tomorrow but states his dad wont let him come home. "Pt states he said im i'm still suicidal to not come home and I cant guarantee I'm never going to feel like that again ya know?. I jsut want to go get some weed and smoke it." Pt talks about it being hot outside, but "[place] isnt probably as hot as here." Pt is cooperative tonight and takes meds before going to bed. S/I, H/I: Denies A/VH: Denies Sleep: see sleep hours ADL's: Independent. Group attendance: No Were meds taken: Yes Any med S/E: Denies Mental Status Exam Appearance: Disheveled, wearing green scrubs Eye contact: Good Behavior: pacing laughing interacting with peers Speech: soft spoken at times, Mood: depressed Affect: Congruent with mood. Thought process: Disorganized, tangential. Thought Content: Focused on discharge. "Are they really going to make me get on a bus to go to [place] tomorrow?" Cognition: A&Ox4 Insight: Poor Judgment: Poor Therapeutic interventions PRN's: none yet today Interventions: 1:1 assessment, therapeutic communication, medication administration/education/monitoring, encouragement to come to meals and participate in unit activities, behavior monitoring and intervention as needed, distraction, redirection, Q 15 minute safety checks. Restraints/seclusion/emergency medication: None Justification of Continued Inpatient Treatment: Patient has a long history of mental illness, "bipolar ". Patient has been noncompliant with treatment providers in [facility]. Patient needs crisis interruption and medication management and monitoring in a safe and therapeutic environment.
[2020-09-18] MEDS: NICOTINE POLACRILEX 2 MG LOZENGE BC PRN ×2 (07:09→09:33)
[2020-09-18] MEDS: OLANZapine 2.5MG tablet PO SCH (07:09)
--- NOTE | 2020-09-18 07:44 | NUR ---
DISCHARGE PLAN Naveen is discharging today and taking the [employer] bus from [place] to [place], [place] to [place], and possibly [place] to [place]. He reported his dad can pick him up in [place]. Provided Naveen with information on the bus schedule. He plans to return to his parents home. Provided him with a list of therapists and psychiatrists available through his insurance for follow up. Provided Naveen $15 barber from [employer] for [facility]. KARTHIKEYAN Landin
[2020-09-18 07:55] VITALS: BP 114/70
[2020-09-18] MEDS: divalproex 250mg tablet, delayed-release PO SCH (08:23)
[2020-09-18] MEDS ORDERED: OLAN2.5T28 PO (09:02)
[2020-09-18] MEDS ORDERED: NICO-668 BC (09:02)
[2020-09-18] MEDS ORDERED: HYDR-3686 PO (09:02)
[2020-09-18] MEDS ORDERED: DIVA250T4 PO (09:02)
--- NOTE | 2020-09-18 10:03 | NUR ---
Discharge note: Patient was given discharge instructions, verbalized understanding. All belonging returned to patient. D/C 1000 Follow-Up: Patient has been scheduled/referred to the following providers for post-hospital discharge and aftercare treatment. Psychiatrist: List provided of psychiatrists and therapists in your area. Call to schedule an appointment. You can also access services through [employer] at [email or web address] or call [phone]. Discharge Address: [address] [place] [id number] Transportation: [employer] bus Patient given community crisis services information and National suicide hotline handout.
== END 2020-09-18 10:00 | disposition home or self-care (01) | DRG 885 ==
LOC: ADULT MH 14:37
PROVIDERS: ADMIT Psychiatry & Neurology Psychiatry; ATTEND Psychiatry & Neurology Psychiatry
DX: F31.2 Bipolar disorder, current episode manic severe with psychotic features (principal); R45.851 Suicidal ideations; Z20.822 Contact with and (suspected) exposure to COVID-19; F17.210 Nicotine dependence, cigarettes, uncomplicated; F12.90 Cannabis use, unspecified, uncomplicated; J45.909 Unspecified asthma, uncomplicated; Z59.0 Homelessness; Z79.899 Other long term (current) drug therapy; Z91.19 Patient's noncompliance with other medical treatment and regimen; Z91.5 Personal history of self-harm; Z56.0 Unemployment, unspecified; Z81.8 Family history of other mental and behavioral disorders; Z88.8 Allergy status to other drugs, medicaments and biological substances; Z71.6 Tobacco abuse counseling
CPT/HCPCS: 36415; 80061; 80164; 83036; 87081; J1200; J1630; J2060; Q0163; Q0177

== ENCOUNTER 2024-07-15 11:28 | Inpatient (IN) | payer BC ==
[~2024-07-15] VITALS: Ht 177.8 cm; Wt 71.1 kg
[~2024-07-15 11:28] MED LIST changes: -DIVA-76 PO; +DIVA250T4 PO; -LURA80TA3 PO; +NICO-668 BC; +OLAN2.5T77 PO
[2024-07-15] MEDS ORDERED: chlorproMAZINE 25mg tablet PO PRN (16:25)
[2024-07-15] MEDS ORDERED: magnesium hydroxide 30ml (MOM) UD suspension PO PRN (16:25)
[2024-07-15] MEDS ORDERED: acetaminophen 325mg tablet PO PRN ×2 (16:25)
[2024-07-15] MEDS ORDERED: diphenhydrAMINE 25mg capsule PO PRN (16:25)
[2024-07-15] MEDS ORDERED: loperamide 2mg capsule PO PRN (16:25)
[2024-07-15] MEDS ORDERED: mag hydrox/Alum hydrox/simeth 30ml oral suspension PO PRN (16:25)
[2024-07-15 18:30] VITALS: BP 114/90; PULSE 86; RESP 16; TEMP 99; O2SAT 99
[2024-07-15 19:30] VITALS: RESP 16; O2SAT 99
[2024-07-15] MEDS: NICOTINE POLACRILEX 2 MG LOZENGE BC PRN (19:49)
[2024-07-15 20:00] VITALS: BP 127/86; PULSE 94; RESP 16; TEMP 97.7; O2SAT 95
[2024-07-15] MEDS: traZODone 50mg tablet PO PRN (20:39)
[2024-07-15] MEDS: hydrOXYzine 25 MG tablet PO PRN (20:42)
[2024-07-15] MEDS ORDERED: risperiDONE 2mg tablet PO SCH (22:40)
[2024-07-15] MEDS ORDERED: divalproex sod 250mg ER (24-hour) tablet PO SCH (22:40)
[2024-07-15] MEDS: risperiDONE 2mg tablet PO SCH (22:55)
[2024-07-15] MEDS: divalproex sod 250mg ER (24-hour) tablet PO SCH (22:55)
[2024-07-15] MEDS: divalproex sod 250mg ER (24-hour) tablet PO ONE (23:42)
[2024-07-15] MEDS: risperiDONE 2mg tablet PO ONE (23:42)
[2024-07-16] MEDS ORDERED: DIVA-74 PO (02:10)
[2024-07-16] MEDS ORDERED: DIVA-81 PO ×2 (02:14→18:34)
[2024-07-16] MEDS ORDERED: NICO-687 TOP (02:15)
[2024-07-16] MEDS ORDERED: RISP2TAB52 PO ×2 (02:16→18:34)
[2024-07-16 08:41] VITALS: BP 127/78; PULSE 91; RESP 16; TEMP 98.7; O2SAT 98
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
[2024-07-16 12:55] VITALS: RESP 16; O2SAT 98
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
[2024-07-16 15:17] LABS: BASOPHILS # (AUTO) 0.1 X10'3 (0-0.2); BASOPHILS % (AUTO) 0.7 % (0-1); EOSINOPHILS # (AUTO) 0.3 X10'3 (0-0.9); EOSINOPHILS % (AUTO) 2.5 % (0-6); HEMATOCRIT 42.2 % (42.0-52.0); HEMOGLOBIN 14.4 g/dl (14.0-17.9); LYMPHOCYTES # (AUTO) 3.3 X10'3 (1.1-4.8); LYMPHOCYTES % (AUTO) 27.6 % (21-51); MEAN CORPUSCULAR HEMOGLOBIN 29.6 PG (27.0-31.0); MEAN CORPUSCULAR HGB CONC 34.1 g/dL (33.0-36.5); MEAN CORPUSCULAR VOLUME 86.6 FL (78-98); MEAN PLATELET VOLUME 7.5 FL (7.4-10.4); MONOCYTES # (AUTO) 1.4 X10'3 (0-0.9); NEUTROPHILS # (AUTO) 6.8 X10'3 (1.8-7.7); NEUTROPHILS % (AUTO) 57.2 % (42-75); PLATELET COUNT 283 X10'3 (140-440); RED BLOOD COUNT 4.87 X10'6 (4.70-6.10)
[2024-07-16 15:28] LABS: ALANINE AMINOTRANSFERASE 33 U/L (12-78); ALBUMIN 3.9 G/DL (3.4-5.0); ALBUMIN/GLOBULIN RATIO 1.2 (1.1-1.5); ALKALINE PHOSPHATASE 59 IU/L (46-116); ANION GAP 12 (8-16); ASPARTATE AMINO TRANSFERASE 50 U/L (10-37); BILIRUBIN,TOTAL 0.5 MG/DL (0.1-1.0); BLOOD UREA NITROGEN 12 MG/DL (7-18); BUN/CREATININE RATIO 13.5 (10.0-20.0); CALCIUM 8.6 MG/DL (8.5-10.1); CHLORIDE 103 MMOL/L (99-107); CREATININE 0.89 MG/DL (0.60-1.10); GLUCOSE 98 MG/DL (70-104); POTASSIUM 4.1 MMOL/L (3.5-5.1); SODIUM 142 MMOL/L (135-145); TOTAL CARBON DIOXIDE 27.4 MMOL/L (24-32); TOTAL PROTEIN 7.1 G/DL (6.4-8.2); eCRCL 129 ML/MIN; eGFR > 90 ML/MIN
[2024-07-16 15:38] LABS: THYROID STIMULATING HORMONE 1.05 ulU/ml (0.34-4.50); VALPROATE 93 UG/ML (50-100)
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
[2024-07-16 19:30] VITALS: BP 132/88; PULSE 100; RESP 18; TEMP 98.2; O2SAT 98
[2024-07-16 19:33] VITALS: RESP 18; O2SAT 98
[2024-07-17] MEDS ORDERED: nicotine 21mg patch - 24 hr TD SCH (08:00)
== END 2024-07-16 20:50 | disposition home or self-care (01) | DRG 885 ==
LOC: ADULT MH 18:17 → UNDOADMIN 18:42 → ADULT MH 20:14 → UNDODISIN 07-16 20:50
PROVIDERS: ADMIT Psychiatry & Neurology Psychiatry; ATTEND Psychiatry & Neurology Psychiatry
DX: F31.0 Bipolar disorder, current episode hypomanic (principal); Z59.00 Homelessness unspecified; R45.850 Homicidal ideations; F41.9 Anxiety disorder, unspecified; Z91.148 Patient's other noncompliance with medication regimen for other reason; Z82.0 Family history of epilepsy and other diseases of the nervous system; Z88.8 Allergy status to other drugs, medicaments and biological substances
CPT/HCPCS: 36415; 80053; 80164; 84443; 85025; 87081; Q0161; Q0163; Q0177

== ENCOUNTER 2024-07-17 20:49 | Emergency (ER) | payer BC ==
[~2024-07-17 20:49] MED LIST changes: +DIVA-81 PO; -DIVA250T4 PO; -HYDR-3686 PO; -NICO-668 BC; -OLAN2.5T77 PO; +RISP2TAB52 PO
== END 2024-07-17 22:50 | disposition left against medical advice (07) ==
LOC: ER 20:50
DX: R07.89 Other chest pain (principal); Z88.8 Allergy status to other drugs, medicaments and biological substances; Z53.21 Procedure and treatment not carried out due to patient leaving prior to being seen by health care provider

== ENCOUNTER 2024-07-19 03:43 | Emergency (ER) | payer BC ==
[~2024-07-19] VITALS: Ht 177.8 cm; Wt 71.3 kg
--- NOTE | 2024-07-19 04:12 | Physician Documentation ---
History of Present Illness ~ General Chief Complaint: See Chief Complaint Stated Complaint: GENERAL CHECK UP Time Seen by MD: 04:02 Primary Medical Doctor: [facility] History of Present Illness Initial Comments Patient presents to the emergency room for evaluation of his feet hurting. He states that he is going to order some new shoes on [employer]. No traumas reported. When asked if there was anything else I can help him with he states he would like a cup of orange juice. I did review triage note regarding risperidone and Depakote prescriptions when he states they are waiting for him at [facility] however he got there after hours and it was unable to get his prescriptions. Medication Reconciliation Allergies: Coded Allergies: bupropion (Verified Allergy, Unknown, 08/30/20) lamotrigine (Verified Allergy, Unknown, 08/30/20) paroxetine (Verified Allergy, Unknown, 08/30/20) sertraline (Verified Allergy, Unknown, 08/30/20) Scheduled Divalproex Sodium (Depakote Er), 5 TAB PO HS Risperidone (Risperidone), 1 TAB PO HS Discontinued Medications Divalproex Sodium (Depakote), 1,250 MG PO BID@0830,1730 Discontinued Reason: Other Divalproex Sodium (Divalproex Sodium), 1 TAB PO Q12H, (Reported) Discontinued Reason: Other Hydroxyzine Hcl* (Atarax*), 1 TAB PO Q6H PRN for for anxiety/agitation Discontinued Reason: Other Nicotine 21 MG Patch* (Habitrol 21 MG Patch*), 1 PATCH TOP DAILY, (Reported) Nicotine Polacrilex* (Commit Lozenge*), 2 MG BC Q2H PRN for NICOTINE CRAVING Discontinued Reason: Other Olanzapine (Olanzapine), 7.5 MG PO TID Discontinued Reason: patient no longer taking Past Medical History Past Medical History: Anxiety, Bipolar, Depression Past Surgical History: no surgical history Patient History: Patient reports no known family medical history. Drug Use: marijuana Lives In: Home Review of Systems ROS All review of systems negative except as per HPI Physical Exam Physical Exam Vital Signs: Temperature: 97.9, Source: Temporal, Heart Rate: 86, Respiratory Rate: 17, BP: 123/88, Pulse Oximetry: 98, Weight: 71.320 Oxygen Flow Rate: 0 Physical Exam General: Patient is sleeping and easily arousable, oriented x4 in no acute distress. Unusual affect Head: Normocephalic and atraumatic. Eyes: Conjunctival normal. EOMI. PERRL. ENT: Mucous membranes moist. Neck: Supple, trachea is midline. Chest: Clear to auscultation bilaterally without rales, rhonchi, or wheezes. There is no accessory muscle use or retractions. Cardiac: RRR without murmurs, gallops, or rubs.. Extremities: Bilateral feet with poor hygiene but no signs of cellulitis Progress Results/Orders Results/Orders Vital Signs 07/19/24 03:46 Temp 97.9 Pulse 86 Resp 17 B/P (MAP) 123/88 Pulse Ox 98 O2 Flow Rate 0 Medical Decision Making Findings Patient presents to the emergency room for evaluation as per HPI. I do not feel he was suffering from medical emergency. We have given him socks some Tylenol and some orange juice. Departure Disposition: HOME / SELF CARE / HOMELESS Impression: Primary Impression: Bilateral foot pain Condition: Stable Discharge Instructions: General Discharge Instructions Additional Instructions: Go to [facility] during usual hours and tile picker your prescriptions Referrals: NO PRIMARY CARE PROVIDER (PCP) Education Educated: Patient Educated regarding: need for follow up Signature Scribe Signature: No scribe Attestation: The note accurately reflects work and decisions made by me.Chang Madrid MD 07/19/24 04:12 CHANG MADRID MD July 19, 2024 04:12
[2024-07-19] MEDS: acetaminophen 325mg tablet PO ONE (04:21)
[2024-07-19 04:39] VITALS: BP 110/87; PULSE 78; RESP 14; TEMP 97.9; O2SAT 100
== END 2024-07-19 04:41 | disposition home or self-care (01) ==
LOC: ER 03:43
DX: M79.672 Pain in left foot (principal); M79.671 Pain in right foot; F31.9 Bipolar disorder, unspecified; F41.9 Anxiety disorder, unspecified; F12.90 Cannabis use, unspecified, uncomplicated; Z88.8 Allergy status to other drugs, medicaments and biological substances; Z79.899 Other long term (current) drug therapy
CPT/HCPCS: 99282

== ENCOUNTER 2024-07-19 23:08 | Emergency (ER) | payer BC ==
[~2024-07-19] VITALS: Ht 170.2 cm; Wt 65.0 kg
[2024-07-19 23:30] VITALS: BP 156/78; PULSE 87; RESP 15; O2SAT 99
--- NOTE | 2024-07-20 02:20 | Physician Documentation ---
HPI ~ General Chief Complaint: Medication Request Stated Complaint: MEDICATION REQUEST Time Seen by MD: 02:19 Primary Medical Doctor: [facility] History of Present Illness HPI Comments Patient presents to the emergency room requesting medication refill. I saw patient last night and we had a discussion about him picking up his medicines in the morning however he states he forgot. He is requesting a dose of his medications now. Medication Reconciliation Allergies: Coded Allergies: bupropion (Verified Allergy, Unknown, 07/20/24) lamotrigine (Verified Allergy, Unknown, 07/20/24) paroxetine (Verified Allergy, Unknown, 07/20/24) sertraline (Verified Allergy, Unknown, 07/20/24) Scheduled Divalproex Sodium (Depakote Er), 5 TAB PO HS Risperidone (Risperidone), 1 TAB PO HS Discontinued Medications Divalproex Sodium (Depakote), 1,250 MG PO BID@0830,1730 Discontinued Reason: Other Divalproex Sodium (Divalproex Sodium), 1 TAB PO Q12H, (Reported) Discontinued Reason: Other Hydroxyzine Hcl* (Atarax*), 1 TAB PO Q6H PRN for for anxiety/agitation Discontinued Reason: Other Nicotine 21 MG Patch* (Habitrol 21 MG Patch*), 1 PATCH TOP DAILY, (Reported) Nicotine Polacrilex* (Commit Lozenge*), 2 MG BC Q2H PRN for NICOTINE CRAVING Discontinued Reason: Other Olanzapine (Olanzapine), 7.5 MG PO TID Discontinued Reason: patient no longer taking Past Medical History Past Medical History: Anxiety, Bipolar, Depression Past Surgical History: no surgical history Patient History: Patient reports no known family medical history. Drug Use: marijuana Lives In: Home Review of Systems ROS All review of systems negative except as per HPI Physical Exam Physical Exam Vital Signs: Temperature: 97.6, Source: Temporal, Heart Rate: 87, Respiratory Rate: 15, BP: 156/78, Pulse Oximetry: 99, Weight: 65.000 Physical Exam General: Patient is sleeping but easily arousable in no acute distress Head: Normocephalic and atraumatic. Eyes: Conjunctival normal. EOMI. PERRL. ENT: Mucous membranes moist. Neck: Supple, trachea is midline. Chest: Clear to auscultation bilaterally without rales, rhonchi, or wheezes. There is no accessory muscle use or retractions. Cardiac: RRR without murmurs, gallops, or rubs. Abd: Soft, nondistended, nontender, with normoactive bowel sounds. No guarding, rebound, or rigidity. Psych: Irritable but cooperative. Good eye contact Progress Results/Orders Results/Orders Completed Orders - CHANG MADRID MD Divalproex Sod Er-24 Hr Tablet (Depakote (07/20/24 02:30) Divalproex Sod Er-24 Hr Tablet (Depakote (07/20/24 02:30) Vital Signs 07/19/24 07/20/24 23:30 03:46 Temp 97.6 97.6 Pulse 87 Resp 15 B/P (MAP) 156/78 Pulse Ox 99 Medical Decision Making Findings Patient presents to the emergency room requesting medication refill. I again discussed with him that has medication as sitting for him at [facility] and he needs to follow up. We will give him a dose of his medications now. At this juncture I do not feel he is gravely disabled Departure Disposition: 01 HOME / SELF CARE / HOMELESS Impression: Primary Impression: Medication refill Condition: Fair Discharge Instructions: Medicine Refill at the Emergency Department Additional Instructions: Follow up at [facility] today to get your medication Referrals: NO PRIMARY CARE PROVIDER (PCP) Education Educated: Patient Educated regarding: need for follow up Signature Scribe Signature: No scribe Attestation: The note accurately reflects work and decisions made by me.Chang Madrid MD 07/20/24 02:26 CHANG MADRID MD July 20, 2024 02:20
[2024-07-20] MEDS: divalproex sod 250mg ER (24-hour) tablet PO ONE ×2 (03:40)
[2024-07-20 03:46] VITALS: TEMP 97.6
== END 2024-07-20 03:50 | disposition home or self-care (01) ==
LOC: ER 23:09
DX: Z00.8 Encounter for other general examination (principal); Z76.0 Encounter for issue of repeat prescription; F31.9 Bipolar disorder, unspecified; F41.9 Anxiety disorder, unspecified; F12.90 Cannabis use, unspecified, uncomplicated; Z88.8 Allergy status to other drugs, medicaments and biological substances
CPT/HCPCS: 99283

== ENCOUNTER 2024-07-20 20:47 | Emergency (ER) | payer BC ==
[~2024-07-20] VITALS: Ht 177.8 cm; Wt 70.4 kg
[2024-07-20 21:18] VITALS: BP 130/75; PULSE 61; RESP 16; TEMP 98.9; O2SAT 99
== END 2024-07-20 23:47 | disposition left against medical advice (07) ==
LOC: ER 20:48
DX: F31.9 Bipolar disorder, unspecified (principal); Z88.8 Allergy status to other drugs, medicaments and biological substances; Z53.21 Procedure and treatment not carried out due to patient leaving prior to being seen by health care provider

== ENCOUNTER 2024-07-22 05:56 | Emergency (ER) | payer BC ==
[~2024-07-22] VITALS: Ht 175.3 cm; Wt 70.5 kg
[2024-07-22 06:05] VITALS: BP 133/80; PULSE 97; RESP 18; TEMP 98.1; O2SAT 99
== END 2024-07-22 06:21 | disposition left against medical advice (07) ==
LOC: ER 05:57
DX: M79.643 Pain in unspecified hand (principal); Z53.21 Procedure and treatment not carried out due to patient leaving prior to being seen by health care provider; Z88.8 Allergy status to other drugs, medicaments and biological substances

== ENCOUNTER 2024-07-23 22:53 | Emergency (ER) | payer BC ==
[~2024-07-23] VITALS: Ht 177.8 cm; Wt 70.0 kg
[2024-07-24 00:24] VITALS: BP 143/83; PULSE 70; RESP 18; TEMP 98.2; O2SAT 98
[2024-07-25] MEDS ORDERED: RISP2TAB52 PO (13:23)
[2024-07-25] MEDS ORDERED: DIVA250T2 PO (13:23)
== END 2024-07-24 02:56 | disposition left against medical advice (07) ==
LOC: ER 22:54
DX: Z00.8 Encounter for other general examination (principal); Z88.8 Allergy status to other drugs, medicaments and biological substances; Z53.21 Procedure and treatment not carried out due to patient leaving prior to being seen by health care provider

== ENCOUNTER 2024-07-24 16:33 | Emergency (ER) | payer BC ==
[~2024-07-24] VITALS: Ht 170.2 cm; Wt 69.7 kg
[2024-07-24 16:39] VITALS: BP 124/70; PULSE 75; RESP 18; TEMP 97.2; O2SAT 98
--- NOTE | 2024-07-24 18:23 | Physician Documentation ---
HPI ~ General Chief Complaint: Medication Request Stated Complaint: EVAL Time Seen by MD: 18:12 Primary Medical Doctor: [facility] History of Present Illness HPI Comments Naveen is a 24-year-old male requesting risperidone and Depakote refills. He does not have any physical medical complaints Medication Reconciliation Allergies: Coded Allergies: bupropion (Verified Allergy, Unknown, 07/24/24) lamotrigine (Verified Allergy, Unknown, 07/24/24) paroxetine (Verified Allergy, Unknown, 07/24/24) sertraline (Verified Allergy, Unknown, 07/24/24) Scheduled Divalproex Sodium (Depakote Er), 5 TAB PO HS Risperidone (Risperidone), 1 TAB PO HS Past Medical History Past Medical History: Anxiety, Bipolar, Depression Past Surgical History: no surgical history Patient History: Patient reports no known family medical history. Drug Use: marijuana Lives In: Home Physical Exam Physical Exam Vital Signs: Temperature: 97.2, Source: Temporal, Heart Rate: 75, Respiratory Rate: 18, BP: 124/70, Pulse Oximetry: 98, Weight: 69.690 Progress Results/Orders Results/Orders Vital Signs 07/24/24 16:39 Temp 97.2 Pulse 75 Resp 18 B/P (MAP) 124/70 Pulse Ox 98 Medical Decision Making Findings Patient received MSE but left prior to full exam. Departure Disposition: LEFT AWOL/ELOPED Impression: Primary Impression: Eloped from emergency department Referrals: NO PRIMARY CARE PROVIDER (PCP) Additional Comment Medical Screen Exam This patient recieved a medical screening examination. After reviewing the individual's medical complaints with presenting symptoms and performing an appropriate physical examination, it was determined that no emergency medical condition is present. This individual is also not a women having cont ractions. Signature Scribe Signature: . Attestation: Scribed for Emergency,Department by Victorina Villaseñor NP . 07/24/24 18:53 [facility] July 24, 2024 18:23
[2024-07-25] MEDS ORDERED: RISP2TAB52 PO (13:23)
[2024-07-25] MEDS ORDERED: DIVA250T2 PO (13:23)
== END 2024-07-24 18:27 | disposition left against medical advice (07) ==
LOC: ER 16:34
DX: F31.9 Bipolar disorder, unspecified (principal); F41.9 Anxiety disorder, unspecified; F12.90 Cannabis use, unspecified, uncomplicated; Z76.0 Encounter for issue of repeat prescription; Z88.8 Allergy status to other drugs, medicaments and biological substances; Z79.899 Other long term (current) drug therapy; Z53.21 Procedure and treatment not carried out due to patient leaving prior to being seen by health care provider

== ENCOUNTER 2024-07-25 08:25 | Inpatient (IN) | payer BC ==
[~2024-07-25] VITALS: Ht 177.8 cm; Wt 72.2 kg
--- NOTE | 2024-07-25 08:39 | Physician Documentation ---
History of Present Illness ~ Chief Complaint: Mental Health Eval Stated Complaint: DARYN Time Seen by MD: 08:32 Primary Medical Doctor: [facility] HPI This is a 24-year-old gentleman who has been a 3 times per facility yesterday, comes in today with a request for 30 dollars in the right to [facility]. He states that he does not want to be here, he is waiting for the morning from his dad. He states that he is out of his bipolar medications, however record review indicates that he had already has been represcribed yesterday. He makes a notes that he has been doing drugs instead of taking his psychiatric medications. He denies any somatic complaints. Unfortunately, the gentleman expressed to the nursing staff that he is suicidal and wants to lie down across the train tracks. Medication Reconciliation Allergies: Coded Allergies: bupropion (Verified Allergy, Unknown, 07/24/24) lamotrigine (Verified Allergy, Unknown, 07/24/24) paroxetine (Verified Allergy, Unknown, 07/24/24) sertraline (Verified Allergy, Unknown, 07/24/24) Scheduled Divalproex Sodium (Depakote ER), 5 TAB PO HS, (Reported) Risperidone (Risperidone), 1 TAB PO HS Discontinued Medications Divalproex Sodium (Depakote Er), 5 TAB PO HS Discontinued Reason: ADR (Adverse Drug Rxn) Risperidone (Risperidone), 1 TAB PO HS, (Reported) Discontinued Reason: wrong patient Past Medical History Past Medical History: Anxiety, Bipolar, Depression Past Surgical History: no surgical history Patient History: Patient reports no known family medical history. Drug Use: marijuana Lives In: Home Review of Systems ROS 10 point review of systems was performed and unless noted above in HPI is ne gative for acute process/complaint. Physical Exam Vital Signs: Temperature: 98.5, Source: Oral, Heart Rate: 69, Respiratory Rate: 16, BP: 141/71, Pulse Oximetry: 99, Weight: 68.400 Oxygen Flow Rate: 0 Physical Exam Physical examination: GENERAL: Awake, alert, oriented, GCS 15, no apparent distress, non-toxic appearing, answers questions, follows commands appropriately. Young man with a obvious stigmata of homelessness examined in triage and placed in bed 7. HEENT: Atraumatic, normocephalic, pupils equal, extraocular muscles intact Active gross movements, sclerae anicteric, mucus membranes moist, no stridor. NECK: Midline, no JVD CARDIOVASCULAR: Good skin perfusion without evidence of pallor, mottling. PULMONARY: Nonlabored, symmetric chest rise, no audible wheezing, no accessory muscle use, no respiratory distress, speaking in full sentences. GASTROINTESTINAL: Not distended. NEUROLOGIC: Lucid with normal mental status. Normal facial symmetry. Moves all extremities symmetrically and with purpose. No truncal ataxia. Speech is fluid without evidence of dysarthria or aphasia, no focal deficits appreciated. EXTREMITIES: Acute deformities Skin: warm, dry PSYCHIATRIC: Manipulative affect, normal insight, normal concentration. Focused exam: [] Progress Results/Orders Results/Orders Orders - EVARISTO PAYNE DO Med Rec (07/25/24 08:34) 1799.11 (07/25/24 08:34) Close Observation Level (07/25/24 08:34) Covid19 Binax Poc Result Entry (07/25/24 08:34) Substance Use Navigator (07/25/24 08:34) Regular Diet (07/25/24 Lunch) Completed Orders - EVARISTO PAYNE DO Cbc/Diff (07/25/24 08:34) Drug Screen, Urine (07/25/24 08:34) Ethanol (07/25/24 08:34) BMP (07/25/24 08:34) Ua With Microscopic (07/25/24 08:34) Man Diff (07/25/24 09:31) Vital Signs 07/25/24 07/25/24 07/25/24 08:26 08:55 10:34 Temp 98.5 Pulse 69 60 Resp 16 17 14 B/P (MAP) 141/71 114/80 (91) Pulse Ox 99 99 O2 Flow Rate 0 Laboratory Tests Test 07/25/24 08:34 07/25/24 08:37 07/25/24 09:31 Urine Specimen Description Cln catch midstream Urine Color Dark yellow Urine Clarity Clear Urine pH 6.0 Urine Specific [place] >=1.030 Urine Protein 30 H Urine Glucose (UA) Negative Urine Ketones Trace H Urine Occult Blood Negative Urine Nitrite Negative Urine Bilirubin Negative Urine Urobilinogen 1.0 Urine Leukocyte Esterase Negative Urine RBC 0-2 Urine WBC 0-4 Urine Squamous Epithelial Cells Few Urine Calcium Oxalate Crystals 3+ Urine Bacteria Few Volume Urine Centrifuged 10 ml Urine Comment Urine Opiates Screen Negative Urine Methadone Screen Negative Urine Fentanyl Screen Negative Urine Barbiturates Screen Negative Urine Phencyclidine Screen Negative Urine Amphetamines Screen Positive Urine Benzodiazepines Screen Negative Urine Cocaine Screen Negative Urine Cannabinoids Screen Positive Drug Screen Comment SARS-CoV-2 Antigen (Rapid) Negative White Blood Count 10.7 Red Blood Count 4.13 L Hemoglobin 12.1 L Hematocrit 36.1 L Mean Corpuscular Volume 87.5 Mean Corpuscular Hemoglobin 29.4 Mean Corpuscular Hemoglobin Concent 33.6 Red Cell Distribution Width 13.8 Platelet Count 328 Mean Platelet Volume 6.9 L Neutrophils (%) (Auto) 58.5 Lymphocytes (%) (Auto) 21.4 Monocytes (%) (Auto) 15.6 H Eosinophils (%) (Auto) 3.9 Basophils (%) (Auto) 0.6 Neutrophils # (Auto) 6.2 Lymphocytes # (Auto) 2.3 Monocytes # (Auto) 1.7 H Eosinophils # (Auto) 0.4 Basophils # (Auto) 0.1 CBC Comment Differential Total Cells Counted 100 Neutrophils % (Manual) 60.0 Lymphocytes % (Manual) 23.0 Monocytes % (Manual) 13.0 H Eosinophils % (Manual) 4.0 Platelet Estimate Normal Red Blood Cell Morphology Normal Basophilic Stippling Sodium Level 142 Potassium Level 3.5 Chloride Level 106 Carbon Dioxide Level 29.7 Anion Gap 6 L Blood Urea Nitrogen 13 Creatinine 0.80 Estimated GFR/1.73 m2 > 90 BUN/Creatinine Ratio 16.3 Glucose Level 99 Calcium Level 8.6 Albumin 3.4 Chemistry Comments Ethyl Alcohol Level < 10 Medical Decision Making Findings Facility Status: ED [facility] process The plan was discussed with the patient, who demonstrates clear understanding of the plan and is in agreement with the plan unless otherwise noted in the chart. All questions have been answered, all concerns were addressed unless otherwise documented. I was available throughout their ED stay for frequent reassessment and questions. Differential Diagnoses (considered and possible or likely): [Strongly suspect malingering and expressed some suicidal ideation as a means to achieve alternative accommodation and food, less likely true suicidality, polysubstance abuse] ??Differential Diagnoses (considered and unlikely, not requiring evaluation currently): Denies somatic complaints] MDM Data Please see HPI for the following: Independent Historians and external Records Review. Historian: [Patient] Independent Historians: ?[Record review] Medication Management: [Reviewed medication list] Social History and determinants: [Reviewed] Please see the body of the note for the following: Any independent interpretations of ECG, imaging studies. All vitals signs/haemodynamics, ordered tests were independently reviewed and interpreted by myself. Nursing triage complaint and vitals reviewed, additional nursing notes were reviewed as available and I agree unless otherwise noted or documented in contradiction in the chart Vital Signs: Independently reviewed Labs: Independently interpreted Imaging: Independently interpreted Old Medical Records: Independently reviewed, see HPI for relevant summary and information Pulse Oximetry: [100%] interpreted as [normal on room air] by me Additionally notably showing: [Hemodynamically stable. Unremarkable laboratory workup except positive for methamphetamines as expected.] Tests considered but not ordered include: [Imaging has been considerably does not appear to be necessary] Social Determinants of Health Impact: Patient was evaluated in [facility] [place] to healthcare due to below par ratio of patient to medical providers. [] Comorbid Conditions Impacting Present Evaluation and Care/Treatment: [Methamphetamine abuse, decompensated psychiatric disease, medication noncompliance] Management Discussions with other Healthcare Providers: [We have consulted mental health] Treatment and Disposition Medication Management (Given or considered): []. See EMR for details Consideration for Hospitalization/Escalation/Deescalation of Care: Admission for observation has been considered, [however the patient is able to tolerate p.o., their symptoms are controlled, they are able to rely on oral medications, and their chief complaint/diagnosis can be managed on outpatient basis.] ?ED Course:?[Patient is medically cleared for psychiatric evaluation] ?Shared decision making:?[] Code status:?FULL Please see the full Electronic Medical Record for full details of nursing documentation, medications list, other records of complete past medical history and conditions, vital signs, laboratory studies, and any radiologic study interpretations by radiologists. Portions of this note were completed using mobifriends dictation software and as a result there may exist minor errors in spelling. I have reviewed elements of past family and social history and agree as included in note. Departure Impression: Primary Impression: Suicidal ideation Additional Impressions: Mental disorder Malingering Polysubstance abuse Homelessness Referrals: NO PRIMARY CARE PROVIDER (PCP) Signature Scribe Signature: No scribe Attestation: This note accurately reflects clinical decisions, work performed by myself, Evaristo Payne, EVARISTO FELIX DO July 25, 2024 08:39
[2024-07-25 09:38] LABS: BASOPHILS # (AUTO) 0.1 X10'3 (0-0.2); BASOPHILS % (AUTO) 0.6 % (0-1); EOSINOPHILS # (AUTO) 0.4 X10'3 (0-0.9); EOSINOPHILS % (AUTO) 3.9 % (0-6); HEMATOCRIT 36.1 % (42.0-52.0); HEMOGLOBIN 12.1 g/dl (14.0-17.9); LYMPHOCYTES # (AUTO) 2.3 X10'3 (1.1-4.8); LYMPHOCYTES % (AUTO) 21.4 % (21-51); MEAN CORPUSCULAR HEMOGLOBIN 29.4 PG (27.0-31.0); MEAN CORPUSCULAR HGB CONC 33.6 g/dL (33.0-36.5); MEAN CORPUSCULAR VOLUME 87.5 FL (78-98); MEAN PLATELET VOLUME 6.9 FL (7.4-10.4); MONOCYTES # (AUTO) 1.7 X10'3 (0-0.9); MONOCYTES % (AUTO) 15.6 % (2-12); NEUTROPHILS # (AUTO) 6.2 X10'3 (1.8-7.7); NEUTROPHILS % (AUTO) 58.5 % (42-75); PLATELET COUNT 328 X10'3 (140-440); RED BLOOD COUNT 4.13 X10'6 (4.70-6.10); RED CELL DISTRIBUTION WIDTH 13.8 % (11.5-14.5); WHITE BLOOD COUNT 10.7 X10'3 (4.5-11.0)
[2024-07-25 09:48] LABS: BILIRUBIN,URINE NEGATIVE (Neg); CLARITY,URINE CLEAR (Clear); GLUCOSE, URINE NEGATIVE (Neg); KETONES,URINE TRACE mg/dl (Neg); LEUKOCYTE ESTERASE ,URINE NEGATIVE (Neg); NITRITES, URINE NEGATIVE (Neg); OCCULT BLOOD,URINE NEGATIVE (Neg); PROTEIN,URINE 30 mg/dl (Neg)
[2024-07-25 09:54] LABS: ALBUMIN 3.4 G/DL (3.4-5.0); ANION GAP 6 (8-16); BLOOD UREA NITROGEN 13 MG/DL (7-18); BUN/CREATININE RATIO 16.3 (10.0-20.0); CALCIUM 8.6 MG/DL (8.5-10.1); CHLORIDE 106 MMOL/L (99-107); ETHANOL < 10 MG/DL (<10); GLUCOSE 99 MG/DL (70-104); POTASSIUM 3.5 MMOL/L (3.5-5.1); SODIUM 142 MMOL/L (135-145); TOTAL CARBON DIOXIDE 29.7 MMOL/L (24-32); eCRCL 138 ML/MIN; eGFR > 90 ML/MIN
[2024-07-25 10:04] LABS: URINE AMPHETAMINE SCREEN POSITIVE (Neg); URINE BARBITUATE SCREEN NEGATIVE (Neg); URINE BENZODIAZEPINES SCREEN NEGATIVE (Neg); URINE CANNABINOID SCREEN POSITIVE (Neg); URINE COCAINE SCREEN NEGATIVE (Neg); URINE METHADONE SCREEN NEGATIVE (Neg); URINE OPIATE SCREEN NEGATIVE (Neg); URINE PHENCYCLIDINE SCREEN NEGATIVE (Neg)
[2024-07-25 10:20] LABS: COLOR,URINE DARK YELLOW (Yellow); UA COLLECTION TYPE CLN CATCH MIDSTREAM
[2024-07-25 10:25] LABS: WBC,URINE 0-4 /HPF (0-4)
[2024-07-25 10:26] LABS: BACTERIA,URINE FEW /HPF (Neg); CAL OXALATE CRYSTALS 3+ /HPF (NEGATIVE); RBC,URINE 0-2 /HPF (0-2); SQUAMOUS EPITHELIAL CELL,UR FEW /LPF (FEW)
[2024-07-25 10:59] LABS: PLATELET ESTIMATE NORMAL; TOTAL CELLS COUNTED 100
[2024-07-25] MEDS ORDERED: RISP2TAB52 PO (13:23)
[2024-07-25] MEDS ORDERED: DIVA250T2 PO (13:23)
[2024-07-25] MEDS ORDERED: divalproex sod 250mg ER (24-hour) tablet PO SCH (13:30)
[2024-07-25] MEDS: acetaminophen 325mg tablet PO ONE (14:12)
[2024-07-25] MEDS: divalproex sod 250mg ER (24-hour) tablet PO ONE (14:13)
[2024-07-25] MEDS: risperiDONE 2mg tablet PO ONE (14:13)
[2024-07-25] MEDS: risperiDONE 2mg tablet PO SCH (20:23)
[2024-07-25] MEDS: divalproex sod 250mg ER (24-hour) tablet PO SCH (20:24)
[2024-07-25 23:18] VITALS: BP 127/68; PULSE 80; RESP 16; TEMP 97.5; O2SAT 98
[2024-07-25 23:35] VITALS: RESP 16; O2SAT 98
[2024-07-25] MEDS ORDERED: mag hydrox/Alum hydrox/simeth 30ml oral suspension PO PRN (23:50)
[2024-07-25] MEDS ORDERED: acetaminophen 325mg tablet PO PRN (23:50)
[2024-07-25] MEDS ORDERED: magnesium hydroxide 30ml (MOM) UD suspension PO PRN (23:50)
[2024-07-25] MEDS ORDERED: traZODone 150mg tablet PO PRN (23:50)
[2024-07-26] MEDS ORDERED: loperamide 2mg capsule PO PRN (05:00)
[2024-07-26] MEDS ORDERED: diphenhydrAMINE 25mg capsule PO PRN (05:00)
[2024-07-26] MEDS: nicotine 21mg patch - 24 hr TD SCH (07:04)
[2024-07-26 07:32] VITALS: BP 115/76; PULSE 74; RESP 16; TEMP 98.1; O2SAT 97
[2024-07-26 08:00] VITALS: RESP 16; O2SAT 97
[2024-07-26] MEDS: NICOTINE POLACRILEX 2 MG LOZENGE BC PRN (08:08)
--- NOTE | 2024-07-26 10:30 | HISTORY AND PHYSICAL ---
History & Physical Providers to CC ~ History of Present Illness Reason for Admit\Complaint: Bipolar disorder History of Present Illness This is a 24 years old male with history of bipolar disorder who presented to the emergency room asking for help; he was evaluated by Mental Health and recommended for inpatient treatment Allergies: Coded Allergies: bupropion (Verified Allergy, Unknown, 07/24/24) lamotrigine (Verified Allergy, Unknown, 07/24/24) paroxetine (Verified Allergy, Unknown, 07/24/24) sertraline (Verified Allergy, Unknown, 07/24/24) Home Medications Home Medications Active Reported Risperidone 2 Mg Tab.rapdis 1 Tab PO HS 30 Days Depakote ER (Divalproex Sodium) 250 Mg Tab.er.24h 5 Tab PO HS 30 Days Past Medical History Past Medical History Asthma Past Surgical History Surgical History Comment None Family History Family History: Patient reports no known family medical history. Past Social History Social History Comment Family history-no family history of diabetes or heart problems Social history-uses drugs; also smokes and uses alcohol ROS ROS A 10 point review of system was done with pertinent positives and negatives with the history of present illness Exam Vitals: Vital Signs Date Time Temp Pulse Resp B/P (MAP) Pulse Ox O2 Delivery O2 Flow Rate FiO2 07/26/24 07:32 98.1 74 16 115/76 (89) 97 Room Air 07/25/24 08:26 0 General: HEENT normal oral mucosa no JVD Lungs with normal bilateral entry Heart normal rate and rhythm Abdomen is soft nontender Extremities no edema Awake and alert Diagnostic Data Last Recorded Lab Results: 07/25/24 0931 07/25/24 0931 Additional Plan Patient is admitted to Mental Health for management of bipolar disorder; management per Psychiatry No acute medical issues Date of Service: July 26, 2024 Billing Provider: KRISS GRADY MD Common Visit Codes: [id number] INP/OBS CARE (HIGH) KRISS GRADY MD July 26, 2024 10:30
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
[2024-07-26 19:00] VITALS: RESP 18; O2SAT 96
[2024-07-26 20:00] VITALS: BP 151/88; PULSE 100; RESP 18; TEMP 97.7; O2SAT 96
[2024-07-26] MEDS: hydrOXYzine 25 MG tablet PO PRN (20:37)
[2024-07-27 07:59] VITALS: BP 139/82; PULSE 90; RESP 16; TEMP 96.3; O2SAT 98
--- NOTE | 2024-07-27 14:32 | PROGRESS NOTE ---
Progress Note Dictate Providers to CC ~ Central Line/PICC still needed: N\\A Antibiotic Ordered?: No MRSA Education MRSA Education Provided to pt: No Objective Vitals Vital Signs Date Time Temp Pulse Resp B/P (MAP) Pulse Ox O2 Delivery O2 Flow Rate FiO2 07/27/24 07:59 96.3 90 16 139/82 (101) 98 Room Air 07/25/24 08:26 0 Lab Results: 07/25/24 0931 07/25/24 0931 Problem\\Assessment\\Plan Problems/Diagnosis: (1) Bipolar disorder (2) Polysubstance abuse Psychiatrist's Progress Note Date of Service: July 27, 2024 Notes CHART REVIEW Pt is a 24 year old single white male who was placed on a 5150 for GD. Pt came to the ER after reporting a history of Bipolar D/O and voiced thoughts of laying on the train tracks. He reportedly told the medical staff in the ER that he was using drugs instead of taking his bipolar medications and wants to get back home to [place], [place]. Toxicology report was positive for amphetamines and THC. PT present as disheveled, exhibited disorganized thought, confusion and stated, I am psychotic, and I need to go to a hospital. Pt was unable to provide a viable plan for food, clothing and assisted. There is no history of treatment with [facility] in the past, Pt reported that he has a history of PHF placement. Per EMR he was at [facility] in 2020 for a few days. ASSESSMENT The patient was interviewed in observation room. The patient was actively walking in the hallway. The patient endorses "frustrated." "Because I am in here and I have one cigarette let them my pack." The patient is going on and on about getting and having a baby and growing marijuana. Denies SI. Denies HI. Denies AVH. Patient endorses adequate sleep and food intake. The patient is stable no acute distress noted. The patient presents as r esponding to auditory hallucinations, word salad, and engaged during session. The patient is noted talking to himself and when asked if he was responding to voices the patient endorses "I have to talk to myself to get my mind right." Per staff report patient is medication compliant. Will continue daily assessment and adjusting treatment as needed. Closely monitor behavior and response to medication during hospitalization. Results Of any Diagn. Testing REVIEW OF LABS WBC 10.7 RBC 4.13 HEMOGLOBIN 12.1 HEMATOCRIT 36.1 PLATELET 328 URINE TOX SCREEN POSITIVE FOR AMPHETAMINES AND CANNABIS SODIUM 142 POTASSIUM 3.5 CHLORIDE 106 ANION GAP 6 BUN 13 CREATININE 0.80 GLUCOSE 99 CALCIUM 8.6 Appearnace: Disheveled Speech: Tangential, Other (WORD SALAD.CIRCUMSTANTIAL) Eye Contact: Normal Motor Activity: Normal Affect: Full Mood: Euphoric Orientation Impairment: None Memory Impairment: None Attention: Distracted Hallucinations: Auditory Other: None Suicidality: None Homicidality: None Delusions: None Behavior: Hyperactive Insight: Poor Judgment: Poor Treatment Increased RISPERIDONE 4 MG P.O. Q.H.S. DEPAKOTE ER 1250 MG P.O. Q.H.S. Monitoring by Staff, Milieu, Group, and Individual counseling as needed -- According to the [place] Suicide Assessment the above named patient is on Q15 MINUTE CHECKS. [id number]- Patient is unable to formulate a plan to safely meet their basic needs of food, clothing, and assisted due to the severity of their mental illness. We are still titrating medications to an effective dose while maintaining a therapeutic environment to prevent decompensation and readmission. Total time spent 35 minutes REVIEW OF Clinical notes [X ] RN notes [X] PCT documentation [X] SW notes Labs [ X] Medications [X] Care trends/care activity [X] Vitals [X] DISCUSSION WITH dry cleaning supervisor [X] Staff SW [X] Treatment Team [X] Discharge UNSURE AT THIS TIME. DISCHARGE BACK HOME ONCE STABLE. CODING VISIT-PSYCHIATRY Date of Service: July 27, 2024 Billing Provider: CELINA BOJORQUEZ APRN Psych Common Visit Codes: [id number] INP/OBS CARE(Mod) CELINA BOJORQUEZ APRN July 27, 2024 14:32
[2024-07-27 19:00] VITALS: RESP 18
[2024-07-27 20:00] VITALS: BP 171/97; PULSE 16; PULSE 88; RESP 18; RESP 21; TEMP 97.9; O2SAT 98
[2024-07-27] MEDS: risperiDONE 2mg tablet PO SCH (20:05)
[2024-07-27] MEDS: traZODone 50mg tablet PO PRN (20:05)
[2024-07-27] MEDS: chlorproMAZINE 25mg tablet PO PRN (20:05)
[2024-07-28] MEDS: acetaminophen 325mg tablet PO PRN (02:48)
[2024-07-28 05:27] LABS: CHOL/HDL RATIO 1.8 (0.00-4.99); CHOLESTEROL 77 MG/DL (0-200); HDL CHOLESTEROL 43 MG/DL (35-60); LDL CHOLESTEROL 27 MG/DL (50-100); TRIGLYCERIDES 31 MG/DL (20-135)
[2024-07-28 07:00] VITALS: RESP 16; O2SAT 96
[2024-07-28 08:00] VITALS: BP 134/86; PULSE 85; RESP 16; TEMP 97.7; O2SAT 96
--- NOTE | 2024-07-28 09:36 | PROGRESS NOTE ---
Progress Note Dictate Providers to CC ~ Central Line/PICC still needed: N\\A Antibiotic Ordered?: No MRSA Education MRSA Education Provided to pt: No Objective Vitals Vital Signs Date Time Temp Pulse Resp B/P (MAP) Pulse Ox O2 Delivery O2 Flow Rate FiO2 07/27/24 20:00 16 18 07/27/24 19:00 Room Air 07/27/24 07:59 96.3 139/82 (101) 98 07/25/24 08:26 0 Lab Results: 07/25/24 0931 07/25/24 0931 Problem\\Assessment\\Plan Problems/Diagnosis: (1) Bipolar disorder (2) Polysubstance abuse Psychiatrist's Progress Note Date of Service: July 28, 2024 Notes CHART REVIEW Pt is a 24 year old single white male who was placed on a 5150 for GD. Pt came to the ER after reporting a history of Bipolar D/O and voiced thoughts of laying on the train tracks. He reportedly told the medical staff in the ER that he was using drugs instead of taking his bipolar medications and wants to get back home to [place], [place]. Toxicology report was positive for amphetamines and THC. PT present as disheveled, exhibited disorganized thought, confusion and stated, I am psychotic, and I need to go to a hospital. Pt was unable to provide a viable plan for food, clothing and halfway. There is no history of treatment with [facility] in the past, Pt reported that he has a history of PHF placement. Per EMR he was at [facility] in 2020 for a few days. ASSESSMENT The patient was interviewed in observation room. The patient was actively walking in the hallway. The patient endorses "relaxed." Feel like I am want to make it to the [facility] [place] for Andrzej and get a full pack of Zimbabwean spirits (cigarette). "I do not hear voices I was talking to the street cats when I was high on meth." "I am just telling you some freaking stuff sometimes is not freaking is reality." Denies SI. Denies HI. Denies AVH. Patient endorses adequate sleep and food intake. The patient is stable no acute distress noted. The patient presents as hyperactive, word salad, and engaged during session. Per staff report patient is medication compliant. Per report no abnormal behaviors. Will continue daily assessment and adjusting treatment as needed. Closely monitor behavior and response to medication during hospitalization. Lateral received from Joaquín, patient's father. Joaquín endorses that the patient has done well for the last three years on risperidone and Depakote. Joaquín and the patient is on insisting on the patient staying on those two medications since they have worked the past few years. Results Of any Diagn. Testing REVIEW OF LABS WBC 10.7 RBC 4.13 HEMOGLOBIN 12.1 HEMATOCRIT 36.1 PLATELET 328 URINE TOX SCREEN POSITIVE FOR AMPHETAMINES AND CANNABIS SODIUM 142 POTASSIUM 3.5 CHLORIDE 106 ANION GAP 6 BUN 13 CREATININE 0.80 GLUCOSE 99 CALCIUM 8.6 Appearnace: Other Speech: Other (CIRCUMSTANTIAL, WORD SALAD) Eye Contact: Normal Motor Activity: Normal Affect: Full Mood: Euthymic Orientation Impairment: None Memory Impairment: None Attention: Normal Hallucinations: Auditory Other: None Suicidality: None Homicidality: None Delusions: None Behavior: Cooperative, Hyperactive, Bizarre Insight: Poor Judgment: Poor Treatment RISPERIDONE 4 MG P.O. Q.H.S. DEPAKOTE ER 1250 MG P.O. Q.H.S. Monitoring by Staff, Milieu, Group, and Individual counseling as needed -- According to the [place] Suicide Assessment the above named patient is on Q15 MINUTE CHECKS. [id number] is unable to formulate a plan to safely meet their basic needs of food, clothing, and halfway due to the severity of their mental illness. We are still titrating medications to an effective dose while maintaining a therapeutic environment to prevent decompensation and readmission. Total time spent 45 minutes REVIEW OF Clinical notes [X ] RN notes [X] PCT documentation [X] SW notes Labs [ X] Medications [X] Care trends/care activity [X] Vitals [X] DISCUSSION WITH hog dropper [X] Staff SW [X] Treatment Team [X] Speaking on telephone with Joaquín, patient's dad with patient's consent Discharge UNSURE AT THIS TIME. DISCHARGE TO A [facility] CODING VISIT-PSYCHIATRY Date of Service: July 28, 2024 Billing Provider: CELINA BOJORQUEZ APRN Psych Common Visit Codes: [id number] INP/OBS CARE(Mod) CELINA BOJORQUEZ APRN July 28, 2024 09:36
[2024-07-28 19:00] VITALS: RESP 21; O2SAT 98
[2024-07-28 20:00] VITALS: BP 171/97; PULSE 88; RESP 21; TEMP 97.9; O2SAT 98
--- NOTE | 2024-07-28 20:01 | PROGRESS NOTE ---
Daily Progress Note Providers to CC ~ Antibiotic Timeout Antibiotic Ordered?: No Subjective This is the hospitalist progress note on patients hospitalized at [facility]. The patient has not no acute medical complaints or concerns nor were there any voiced by nursing staff. Objective Vital Signs Date Time Temp Pulse Resp B/P (MAP) Pulse Ox O2 Delivery O2 Flow Rate FiO2 07/28/24 08:00 97.7 85 16 134/86 (102) 96 Room Air 0.0 Result Diagram: 07/25/2493007/25/24930 Gen. No acute distress alert and oriented Lungs clear to ascultation bilaterally, no wheezes rales or rhonchi appreciated Heart normal sinus rhythm no murmurs rubs or clicks noted Abdomen soft nontender bowel sounds are normoactive Lower extremities no clubbing cyanosis, nor edema appreciated bilaterally Problem\Assessment\Plan Problems/Diagnosis: (1) Bipolar disorder # bipolar disorder with amadeo psychoses- Follow up by Psychiatry # substance use disorder- Followed by psychiatry adult physician # tobacco use disorder- On nicotine replacement including a patch and lozenge PRN No acute medical complaints or concerns The hospitalist service will continue to follow the patient while hospitalized at [facility] Date of Service: July 28, 2024 Billing Provider: ENRIQUE BURNETT DO Common Visit Codes: [id number] INP/OBS CARE(LOW) ENRIQUE BURNETT DO July 28, 2024 20:01
[2024-07-29 04:00] VITALS: BP 135/84; PULSE 86; O2SAT 96
[2024-07-29 07:00] VITALS: RESP 12; O2SAT 98
[2024-07-29 08:00] VITALS: BP 136/87; PULSE 85; RESP 16; TEMP 98.1; O2SAT 97
--- NOTE | 2024-07-29 09:11 | PROGRESS NOTE ---
Progress Note Dictate Providers to CC ~ Central Line/PICC still needed: N\\A Antibiotic Ordered?: No MRSA Education MRSA Education Provided to pt: No Objective Vitals Vital Signs Date Time Temp Pulse Resp B/P (MAP) Pulse Ox O2 Delivery O2 Flow Rate FiO2 07/29/24 04:00 86 135/84 (101) 96 Room Air 07/28/24 20:00 97.9 21 07/28/24 08:00 0.0 Lab Results: 07/25/24 0931 07/25/24 0931 Counseling Services Smoking & Tobacco Cessation: > 10 Minutes Problem\\Assessment\\Plan Problems/Diagnosis: (1) Bipolar disorder (2) Polysubstance abuse Psychiatrist's Progress Note Date of Service: July 29, 2024 Notes CHART REVIEW Pt is a 24 year old single white male who was placed on a 5150 for GD. Pt came to the ER after reporting a history of Bipolar D/O and voiced thoughts of laying on the train tracks. He reportedly told the medical staff in the ER that he was using drugs instead of taking his bipolar medications and wants to get back home to [place], [place]. Toxicology report was positive for amphetamines and THC. PT present as disheveled, exhibited disorganized thought, confusion and stated, I am psychotic, and I need to go to a hospital. Pt was unable to provide a viable plan for food, clothing and retirement. There is no history of treatment with [facility] in the past, Pt reported that he has a history of PHF placement. Per EMR he was at [facility] in 2020 for a few days. ASSESSMENT The patient was interviewed in observation room. The patient was actively standing in the hallway talking on telephone. The patient endorses "I just want to go outside." "I came to reading for the sun and I just want to go back out." I just need five more dollars Five dollars to take the [employer] transit to [place] to [place]." "I am not going to [facility] and that is up for me to stay. I am getting creeped out being here more creep out did not have ever been on the streets anywhere." When asked the patient if he was discharge today how would he get food the patient endorses "I know everyone I will probably go to [facility] and treat my homebound teacher and last cigarette for a burrito." "As far as my disability I will pass on that I do not want Trumps money I want to join the [employer]." "Want to go to the [facility] in [place] and bulk up first." When asked how would he provide retirement the patient endorses "Oh lots of ways." When asked the patient how would he provide clothing the patient endorses "I will go to the [facility] to get a new pair of boots and a hat." "I know risperidone makes you woozy and the sun that is why I do not take much of it." "you guys really helped my foot." "The girl down the street is not part of my crew she is a weird 0.' "She prays on toys that have just gotten off of work and waiting on their mother's to come pick them up." Denies SI. Denies HI. Denies AVH. Patient endorses adequate sleep and food intake. The patient is stable no acute distress noted. The patient presents as hyperactive, word salad, disoriented, and engaged during session.The patient is noted laughing to himself during session. Per staff report patient is medication compliant. Per report no abnormal behaviors. Will continue daily assessment and adjusting treatment as needed. Closely monitor behavior and response to medication during hospitalization. Results Of any Diagn. Testing REVIEW OF LABS WBC 10.7 RBC 4.13 HEMOGLOBIN 12.1 HEMATOCRIT 36.1 PLATELET 328 URINE TOX SCREEN POSITIVE FOR AMPHETAMINES AND CANNABIS SODIUM 142 POTASSIUM 3.5 CHLORIDE 106 ANION GAP 6 BUN 13 CREATININE 0.80 GLUCOSE 99 CALCIUM 8.6 Appearnace: Disheveled ( DISHEVELED. FULL FACIAL HAIR.BROWN CURLY HAIR. THIN AVERAGE HEIGHT.WEARING GREEN SCRUB BOTTOMS AND BLACK SWEATER.) Speech: Other (CIRCUMSTANTIAL, WORD SALAD) Eye Contact: Other (INTERMITTENT) Motor Activity: Restless Affect: Constricted Orientation Impairment: None Memory Impairment: None Attention: Normal Hallucinations: None Other: None Suicidality: None Homicidality: None Delusions: None Behavior: Hyperactive, Bizarre Insight: Poor Judgment: Poor Treatment Increase RISPERIDONE 6 MG P.O. Q.H.S. Increase DEPAKOTE ER 1500 MG P.O. Q.H.S. Monitoring by Staff, Milieu, Group, and Individual counseling as needed -- According to the [place] Suicide Assessment the above named patient is on Q15 MINUTE CHECKS. [id number] is unable to formulate a plan to safely meet their basic needs of food, clothing, and retirement due to the severity of their mental illness. We are still titrating medications to an effective dose while maintaining a therapeutic environment to prevent decompensation and readmission. Total time spent 50 minutes REVIEW OF Clinical notes [X ] RN notes [X] PCT documentation [X] SW notes Labs [ X] Medications [X] Care trends/care activity [X] Vitals [X] DISCUSSION WITH supervisor green end department [X] Staff SW [X] Treatment Team [X] Discharge UNSURE AT THIS TIME. DISCHARGE TO A [facility] CODING VISIT-PSYCHIATRY Date of Service: July 29, 2024 Billing Provider: CELINA BOJORQUEZ APRN Psych Common Visit Codes: [id number] INP/OBS CARE(Mod) CELINA BOJORQUEZ APRN July 29, 2024 09:11
[2024-07-29 19:00] VITALS: RESP 18; O2SAT 98
[2024-07-29 20:00] VITALS: BP 146/88; PULSE 87; RESP 18; TEMP 97.3; O2SAT 98
[2024-07-29] MEDS: risperiDONE 2mg tablet PO SCH (20:29)
[2024-07-29] MEDS: divalproex sod 250mg ER (24-hour) tablet PO SCH (20:29)
[2024-07-30 07:00] VITALS: RESP 16; O2SAT 97
[2024-07-30 08:00] VITALS: BP 127/92; PULSE 77; RESP 16; TEMP 96.6; O2SAT 97
[2024-07-30] MEDS: diphenhydrAMINE 50 mg/ml inj ONE (13:44)
[2024-07-30] MEDS: OLANZapine **IM** 10 mg inj. IM ONE ×2 (13:45→13:47)
[2024-07-30] MEDS: LORazepam 2 mg/ml vial ONE (13:46)
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
[2024-07-31] MEDS: haloperidol 5mg tablet PO ONE (07:44)
[2024-07-31] MEDS: diphenhydrAMINE 25mg capsule PO ONE (07:44)
[2024-07-31] MEDS: LORazepam 1 MG tablet PO ONE (07:44)
[2024-07-31 08:00] VITALS: RESP 18
[2024-07-31] MEDS: haloperidol lactate 5mg/ml inj IM ONE (08:37)
[2024-07-31] MEDS: diazepam inj 5 MG/ML inj. IV ONE (08:37)
[2024-07-31] MEDS: diphenhydrAMINE 50 mg/ml inj IM ONE (08:37)
[2024-07-31] MEDS ORDERED: LORazepam 2 mg/ml vial IM ONE (10:10)
[2024-07-31] MEDS ORDERED: OLANZapine **IM** 10 mg inj. IM ONE (10:10)
--- NOTE | 2024-07-31 11:08 | PROGRESS NOTE ---
Progress Note Dictate Providers to CC ~ Central Line/PICC still needed: N\\A Antibiotic Ordered?: No MRSA Education MRSA Education Provided to pt: No Objective Vitals Vital Signs Date Time Temp Pulse Resp B/P (MAP) Pulse Ox O2 Delivery O2 Flow Rate FiO2 07/31/24 08:00 18 07/30/24 20:22 Room Air 07/30/24 08:00 96.6 77 127/92 (104) 97 07/30/24 07:00 0.0 Lab Results: 07/25/24 0931 Counseling Services Smoking & Tobacco Cessation: > 10 Minutes Problem\\Assessment\\Plan Problems/Diagnosis: (1) Bipolar disorder (2) Polysubstance abuse Psychiatrist's Progress Note Date of Service: July 31, 2024 Notes CHART REVIEW Pt is a 24 year old single white male who was placed on a 5150 for GD. Pt came to the ER after reporting a history of Bipolar D/O and voiced thoughts of laying on the train tracks. He reportedly told the medical staff in the ER that he was using drugs instead of taking his bipolar medications and wants to get back home to [place], [place]. Toxicology report was positive for amphetamines and THC. PT present as disheveled, exhibited disorganized thought, confusion and stated, I am psychotic, and I need to go to a hospital. Pt was unable to provide a viable plan for food, clothing and long term. There is no history of treatment with [facility] in the past, Pt reported that he has a history of PHF placement. Per EMR he was at [facility] in 2020 for a few days. ASSESSMENT The patient was interviewed in observation room. The patient was actively walking in hallway. The patient endorses "patient." "I would not accept any money for Trump I just feel that Trump could do good with that money." "I want to go to the [place] I do not want to live with my dad anymore do not want to go to [facility]." "As long as I get my bipolar medicine I would not do any street drugs." "I want to go outside go to [facility] and go hiking." "I am really glad to be in [facility] is very depressing." Denies SI. Denies HI. Denies AVH. Patient endorses adequate sleep and food intake. Per staff report patent slept 6.0 hrs. The patient is stable no acute distress noted. The patient presents as calm, cooperative, and engaged during session. The patient was aggressive and intrusive, PRN was given. Per staff report patient is medication compliant. Will continue daily assessment and adjusting treatment as needed. Closely monitor behavior and response to medication during hospitalization. Results Of any Diagn. Testing REVIEW OF LABS WBC 10.7 RBC 4.13 HEMOGLOBIN 12.1 HEMATOCRIT 36.1 PLATELET 328 URINE TOX SCREEN POSITIVE FOR AMPHETAMINES AND CANNABIS SODIUM 142 POTASSIUM 3.5 CHLORIDE 106 ANION GAP 6 BUN 13 CREATININE 0.80 GLUCOSE 99 CALCIUM 8.6 Appearnace: Other (DISHEVELED. FULL FACIAL HAIR.BROWN CURLY HAIR. THIN AVERAGE HEIGHT.WEARING GREEN SCRUB BOTTOMS AND BLACK SWEATER) Speech: Tangential, Pressured, Other (CIRCUMSTANTIAL) Eye Contact: Normal Motor Activity: Normal Affect: Full Orientation Impairment: None Memory Impairment: None Attention: Normal Hallucinations: None Other: None Suicidality: None Homicidality: None Delusions: None Behavior: Hyperactive Insight: Poor Judgment: Poor Treatment Decrease RISPERIDONE 2 MG P.O. Q.H.S. Decrease DEPAKOTE ER 1250 MG P.O. Q.H.S. Monitoring by Staff, Milieu, Group, and Individual counseling as needed -- According to the [place] Suicide Assessment the above named patient is on Q15 MINUTE CHECKS. [id number] is unable to formulate a plan to safely meet their basic needs of food, clothing, and long term due to the severity of their mental illness. We are still titrating medications to an effective dose while maintaining a therapeutic environment to prevent decompensation and readmission. Total time spent 50 minutes REVIEW OF Clinical notes [X ] RN notes [X] PCT documentation [X] SW notes Labs [ X] Medications [X] Care trends/care activity [X] Vitals [X] DISCUSSION WITH dike supervisor [X] Staff SW [X] Treatment Team [X] Discharge UNSURE AT THIS TIME. DISCHARGE TO A [facility] CODING VISIT-PSYCHIATRY Date of Service: July 31, 2024 Billing Provider: CELINA BOJORQUEZ APRN Psych Common Visit Codes: [id number] INP/OBS CARE(Mod) CELINA BOJORQUEZ APRN July 31, 2024 11:08
[2024-07-31 19:00] VITALS: RESP 18; O2SAT 98
[2024-07-31 20:00] VITALS: BP 137/83; PULSE 102; RESP 18; TEMP 98.4; O2SAT 98
[2024-07-31] MEDS: divalproex sod 250mg ER (24-hour) tablet PO SCH (20:55)
[2024-07-31] MEDS: risperiDONE 2mg tablet PO SCH (20:55)
[2024-08-01 08:00] VITALS: RESP 16
--- NOTE | 2024-08-01 17:00 | PROGRESS NOTE ---
Progress Note Dictate Providers to CC ~ Central Line/PICC still needed: N\\A Antibiotic Ordered?: No MRSA Education MRSA Education Provided to pt: No Objective Vitals Vital Signs Date Time Temp Pulse Resp B/P (MAP) Pulse Ox O2 Delivery O2 Flow Rate FiO2 08/01/24 08:00 16 08/01/24 08:00 Room Air 07/31/24 20:00 98.4 102 137/83 (101) 98 07/30/24 07:00 0.0 Lab Results: 07/25/24 0931 Problem\\Assessment\\Plan Problems/Diagnosis: (1) Bipolar disorder (2) Polysubstance abuse Psychiatrist's Progress Note Date of Service: August 02, 2024 Notes CHART REVIEW Pt is a 24 year old single white male who was placed on a 5150 for GD. Pt came to the ER after reporting a history of Bipolar D/O and voiced thoughts of laying on the train tracks. He reportedly told the medical staff in the ER that he was using drugs instead of taking his bipolar medications and wants to get back home to [place], [place]. Toxicology report was positive for amphetamines and THC. PT present as disheveled, exhibited disorganized thought, confusion and stated, I am psychotic, and I need to go to a hospital. Pt was unable to provide a viable plan for food, clothing and prison. There is no history of treatment with [facility] in the past, Pt reported that he has a history of PHF placement. Per EMR he was at [facility] in 2020 for a few days. ASSESSMENT The patient was interviewed in observation room. The patient was actively walking in hallway. The patient endorses ' I am doing good now that I am on my right dose of medications." "I think I would just go back to my dad's house instead of going to [facility]." Denies SI. Denies HI. Denies AVH. Patient endorses adequate sleep and food intake. Per staff report patent slept 6.0 hrs. The patient is stable no acute distress noted. The patient presents as calm, cooperative, and engaged during session. Per staff report patient is medication compliant. Per staff report omid had an elevated mood at start of shift but has toned it down. Will continue daily assessment and adjusting treatment as needed. Closely monitor behavior and response to medication during hospitalization. Results Of any Diagn. Testing REVIEW OF LABS WBC 10.7 RBC 4.13 HEMOGLOBIN 12.1 HEMATOCRIT 36.1 PLATELET 328 URINE TOX SCREEN POSITIVE FOR AMPHETAMINES AND CANNABIS SODIUM 142 POTASSIUM 3.5 CHLORIDE 106 ANION GAP 6 BUN 13 CREATININE 0.80 GLUCOSE 99 CALCIUM 8.6 Appearnace: Other (APPROPRIATE. FULL FACIAL HAIR.BROWN CURLY HAIR. THIN AVERAGE HEIGHT.WEARING GREEN SCRUB BOTTOMS AND BLACK SWEATER) Speech: Other (FROM MARTHA) Eye Contact: Normal Motor Activity: Normal Affect: Full Mood: Euthymic Orientation Impairment: None Memory Impairment: None Attention: Normal Hallucinations: None Other: None Suicidality: None Homicidality: None Delusions: None Behavior: Cooperative Insight: Poor Judgment: Poor Treatment Treatment RISPERIDONE 2 MG P.O. Q.H.S. DEPAKOTE ER 1250 MG P.O. Q.H.S. Monitoring by Staff, Milieu, Group, and Individual counseling as needed -- According to the [place] Suicide Assessment the above named patient is on Q15 MINUTE CHECKS. [id number] is unable to formulate a plan to safely meet their basic needs of food, clothing, and prison due to the severity of their mental illness. We are still titrating medications to an effective dose while maintaining a therapeutic environment to prevent decompensation and readmission. Total time spent 35 minutes REVIEW OF Clinical notes [X ] RN notes [X] PCT documentation [X] SW notes Labs [ X] Medications [X] Care trends/care activity [X] Vitals [X] DISCUSSION WITH radiological equipment specialist [X] Staff SW [X] Treatment Team [X] Discharge UNSURE AT THIS TIME. DISCHARGE HOME OR TO A COUNT INCLUDES THE [facility] IN [facility] CODING VISIT-PSYCHIATRY Date of Service: August 02, 2024 Billing Provider: CELINA BOJORQUEZ APRN Psych Common Visit Codes: [id number] INP/OBS CARE(Mod) CELINA BOJORQUEZ APRN August 01, 2024 17:00
[2024-08-01 19:00] VITALS: RESP 16; O2SAT 99
--- NOTE | 2024-08-01 19:48 | PROGRESS NOTE- Residence ---
Progress Note - Resident Providers to CC Resident Creating Document: BEATRIZ GOMES, RES CC: DEMETRIA MENDOZA MD ~ Antibiotic Timeout Antibiotic Ordered?: No Subjective Patient was examined at bedside in mental health unit. Patient is comfortably sleeping in his bed. Does not have any medical complaints or acute overnight events. Objective Vital Signs Date Time Temp Pulse Resp B/P (MAP) Pulse Ox O2 Delivery O2 Flow Rate FiO2 08/01/24 08:00 16 08/01/24 08:00 Room Air 07/31/24 20:00 98.4 102 137/83 (101) 98 07/30/24 07:00 0.0 Result Diagram: 07/25/24 0931 General: Alert, awake, oriented, not in acute distress HEENT: PERRLA, no icterus, pallor, lymphadenopathy, carotid bruit Respiratory system: Bilateral vesicular breath sounds heard, no adventitious breath sounds CVS: S1-S2 heard, no murmurs/rubs/gallop GI: Soft, nontender, no organomegaly, no guarding/rigidity, bowel sounds present Neuro: No focal neurological deficits present Extremities: No edema cyanosis clubbing/deformities Skin: Warm and dry Plan Plan Bipolar disorder with amadeo psychosis Substance use disorder Tobacco use disorder Management as per psychiatrist Hospitalist team will continue to follow up with the patient Beatriz Gomes MD Internal Medicine, PGY 1 Date of Service: August 01, 2024 Billing Provider: DEMETRIA MENDOZA MD, SIVA, YOSHI August 01, 2024 19:48
--- NOTE | 2024-08-01 19:49 | PROGRESS NOTE- Residence ---
Progress Note - Resident Providers to CC Resident Creating Document: LEESA ALLEN RES ~ Antibiotic Timeout Antibiotic Ordered?: No Subjective Patient was examined at bedside in mental health unit. Patient is comfortably sleeping in his bed. Does not have any medical complaints or acute overnight events. Objective Vital Signs Date Time Temp Pulse Resp B/P (MAP) Pulse Ox O2 Delivery O2 Flow Rate FiO2 08/01/24 08:00 16 08/01/24 08:00 Room Air 07/31/24 20:00 98.4 102 137/83 (101) 98 07/30/24 07:00 0.0 Result Diagram: 07/25/24 0931 General: well developed, well nourished. Awake , alert, and oriented x4, resting comfortably in the bed, in no acute distress . HEENT: Atraumatic, normocephalic, EOMI, anicteric sclera B; pink conjunctiva; PERRLA, normal oropharynx, moist oral and nasal mucosa. Tympanic membrane , nose , throat clear. Neck: Trachea midline. Supple, full range of motion, no JVD, bruit , hepatojugular reflex , lymphadenopathy or masses, or other lesions Cardiac: Regular rhythm, regular rate no murmurs, rubs, or gallops. Normal S1 and S2, no S3 noticed. PMI is normal. Respiratory: Equal breath sounds bilaterally, no tachypnea; lungs clear to auscultation bilaterally, no wheezing ,rub or rales, or crackles. Chest wall is symmetric and without deformity. No signs of trauma. Chest wall is nontender. No signs of respiratory distress. Resonance is normal upon percussion bilaterally. Gastrointestinal: Abdomen symmetric, non-distended, soft, non-tender, normal bowel sounds x4 quadrant, normoactive, no hepatosplenomegaly , no masses , no bruit, no flank pain bilaterally. No voluntary guarding, rebound, or rigidity. No tenderness to percussion. No pulsatile masses. Equal femoral pulses. No Henriquez's sign or McBurney point tenderness. Back; no CVA tenderness bilaterally, no deformities. Neck and back are without deformity as well. No tenderness noted on palpation of the spinous processes. Spinous processes are midline. Cervical, thoracic, and lumbar paraspinal muscles are not tender and are without spasm. : normal external genitalia, without lesions, swelling, masses or tenderness. Musculoskeletal: Extremities, normal range of motion, non-tender, muscle strength 5/5 x 4. Negative Homans signs bilaterally on lower extremity. Distal pulses full symmetrical, no clubbing, cyanosis , edema. Neurological: Speech is clear, alert, and oriented x 4. No motor or sensory deficit, deep tendon reflexes normal, cerebellar intact. Cranial nerves II-XII intact. Psych: Alert and or appropriate, normal affect. Vascular: Good distal pulses, which are equal x4; capillary refill less than 2 seconds. Skin: Warm, dry, no pallor, no rash or petechiae. Plan Plan Bipolar disorder with amadeo psychosis Substance use disorder Tobacco use disorder Management as per psychiatrist Hospitalist team will continue to follow up with the patient Leesa Wilder MD Internal Medicine, PGY 1 Date of Service: August 01, 2024 Billing Provider: DEMETRIA MENDOZA MD, DEEPIKA BANDI, RES August 01, 2024 19:49
[2024-08-01 20:00] VITALS: BP 189/111; PULSE 96; RESP 16; TEMP 98.3
[2024-08-02 07:07] VITALS: BP 131/84; PULSE 86; RESP 17; TEMP 98.1; O2SAT 96
[2024-08-02 08:00] VITALS: RESP 17; O2SAT 96
--- NOTE | 2024-08-02 12:55 | PROGRESS NOTE ---
Progress Note Dictate Providers to CC ~ Central Line/PICC still needed: N\\A Antibiotic Ordered?: No MRSA Education MRSA Education Provided to pt: No Objective Vitals Vital Signs Date Time Temp Pulse Resp B/P (MAP) Pulse Ox O2 Delivery O2 Flow Rate FiO2 08/02/24 07:07 98.1 86 17 131/84 (100) 96 Room Air 07/30/24 07:00 0.0 Counseling Services Smoking & Tobacco Cessation: > 10 Minutes Problem\\Assessment\\Plan Problems/Diagnosis: (1) Bipolar disorder (2) Polysubstance abuse Psychiatrist's Progress Note Date of Service: August 02, 2024 Notes CHART REVIEW Pt is a 24 year old single white male who was placed on a 5150 for GD. Pt came to the ER after reporting a history of Bipolar D/O and voiced thoughts of laying on the train tracks. He reportedly told the medical staff in the ER that he was using drugs instead of taking his bipolar medications and wants to get back home to [place], [place]. Toxicology report was positive for amphetamines and THC. PT present as disheveled, exhibited disorganized thought, confusion and stated, I am psychotic, and I need to go to a hospital. Pt was unable to provide a viable plan for food, clothing and mcc. There is no history of treatment with [facility] in the past, Pt reported that he has a history of PHF placement. Per EMR he was at [facility] in 2020 for a few days. ASSESSMENT The patient was interviewed in observation room. The patient was actively walking in hallway. The patient endorses ' I am doing good now that I am on my right dose of medications." "I think I would just go back to my dad's house instead of going to [facility]." "I smoke one hit a meth every morning and I would not advise it to anyone who did not have bipolar 1." "I know meth is the cheap stuff; I prefer Coke rocks smoke because and I only smoking because you can overdose when you smoke it." The patient is going on and on about meth and other drugs. "I feel so comfortable in [place] in [place] I feel like a creep." "I want to get [facility] so I can go to [facility] Denies SI. Denies HI. Denies AVH. Patient endorses adequate sleep and food intake. Per staff report patent slept 6.5 hrs. The patient is stable no acute distress noted. The patient presents as less hyperverbal, cooperative, and engaged during session. Per staff report patient is medication compliant. Per staff report patient had an elevated mood at start of shift but has toned it down. Will continue daily assessment and adjusting treatment as needed. Closely monitor behavior and response to medication during hospitalization. Results Of any Diagn. Testing REVIEW OF LABS WBC 10.7 RBC 4.13 HEMOGLOBIN 12.1 HEMATOCRIT 36.1 PLATELET 328 URINE TOX SCREEN POSITIVE FOR AMPHETAMINES AND CANNABIS SODIUM 142 POTASSIUM 3.5 CHLORIDE 106 ANION GAP 6 BUN 13 CREATININE 0.80 GLUCOSE 99 CALCIUM 8.6 Appearnace: Other (INAPPROPRIATE. FULL FACIAL HAIR.BROWN CURLY HAIR. THIN AVERAGE HEIGHT.WEARING GREEN SCRUB BOTTOMS AND BLACK SWEATER AND A WINTER COAT.) Speech: Other (CIRCUMSTANTIAL, HYPERVERBAL, WORD SALAD) Eye Contact: Normal Motor Activity: Normal Affect: Full Mood: Euthymic Orientation Impairment: None Memory Impairment: None Attention: Normal Hallucinations: None Other: None Suicidality: None Homicidality: None Delusions: None Behavior: Hyperactive Insight: Poor Judgment: Poor Treatment RISPERIDONE 2 MG P.O. Q.H.S. DEPAKOTE ER 1250 MG P.O. Q.H.S. Monitoring by Staff, Milieu, Group, and Individual counseling as needed -- Accor ding to the [place] Suicide Assessment the above named patient is on Q15 MINUTE CHECKS. [id number] is unable to formulate a plan to safely meet their basic needs of food, clothing, and mcc due to the severity of their mental illness. We are still titrating medications to an effective dose while maintaining a therapeutic environment to prevent decompensation and readmission. Total time spent 30 minutes REVIEW OF Clinical notes [X ] RN notes [X] PCT documentation [X] SW notes Labs [ X] Medications [X] Care trends/care activity [X] Vitals [X] DISCUSSION WITH public works inspector [X] Staff SW [X] Treatment Team [X] Discharge UNSURE AT THIS TIME. DISCHARGE HOME OR TO A [facility] IN [facility] CODING VISIT-PSYCHIATRY Date of Service: August 02, 2024 Billing Provider: CELINA BOJORQUEZ APRN Psych Common Visit Codes: [id number] INP/OBS CARE(Mod) CELINA BOJORQUEZ APRN August 02, 2024 12:55
[2024-08-02] MEDS: LORazepam 2 mg/ml vial ONE (17:13)
[2024-08-02] MEDS: haloperidol lactate 5mg/ml inj ONE (17:14)
[2024-08-02] MEDS: diphenhydrAMINE 50 mg/ml inj ONE (17:14)
[2024-08-02 18:59] VITALS: RESP 18; O2SAT 96
[2024-08-02 19:22] VITALS: RESP 18
[2024-08-03 07:00] VITALS: RESP 16; O2SAT 97
[2024-08-03 08:00] VITALS: BP 117/75; PULSE 84; RESP 16; TEMP 97.1; O2SAT 97
--- NOTE | 2024-08-03 14:18 | PROGRESS NOTE ---
Progress Note Dictate Providers to CC ~ Central Line/PICC still needed: N\\A Antibiotic Ordered?: No MRSA Education MRSA Education Provided to pt: No Objective Vitals Vital Signs Date Time Temp Pulse Resp B/P (MAP) Pulse Ox O2 Delivery O2 Flow Rate FiO2 08/03/24 08:00 97.1 84 16 117/75 (89) 97 Room Air 07/30/24 07:00 0.0 Problem\\Assessment\\Plan Problems/Diagnosis: (1) Bipolar disorder (2) Polysubstance abuse Psychiatrist's Progress Note Date of Service: August 03, 2024 Notes CHART REVIEW Pt is a 24 year old single white male who was placed on a 5150 for GD. Pt came to the ER after reporting a history of Bipolar D/O and voiced thoughts of laying on the train tracks. He reportedly told the medical staff in the ER that he was using drugs instead of taking his bipolar medications and wants to get back home to [place], [place]. Toxicology report was positive for amphetamines and THC. PT present as disheveled, exhibited disorganized thought, confusion and stated, I am psychotic, and I need to go to a hospital. Pt was unable to provide a viable plan for food, clothing and intermediate. There is no history of treatment with [facility] in the past, Pt reported that he has a history of PHF placement. Per EMR he was at [facility] in 2020 for a few days. ASSESSMENT The patient was interviewed in observation room. The patient was actively walking in hallway. 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 I need to get out of here and go smoke a cigarette. "I lied about being suicidal because my feet was hurt in and I needed to chill out and am being honest." "You guys have to understand it God is not letting this boy ." Denies SI. Denies HI. Denies AVH. Patient endorses adequate sleep and food intake. The patient is stable no acute distress noted. The patient presents as less hyperverbal, cooperative, and engaged during session. Per staff report patient is medication compliant. Per staff report no abnormal behaviors. Will continue daily assessment and adjusting treatment as needed. Closely monitor behavior and response to medication during hospitalization. Results Of any Diagn. Testing REVIEW OF LABS WBC 10.7 RBC 4.13 HEMOGLOBIN 12.1 HEMATOCRIT 36.1 PLATELET 328 URINE TOX SCREEN POSITIVE FOR AMPHETAMINES AND CANNABIS SODIUM 142 POTASSIUM 3.5 CHLORIDE 106 ANION GAP 6 BUN 13 CREATININE 0.80 GLUCOSE 99 CALCIUM 8.6 Appearnace: Other (INAPPROPRIATE. FULL FACIAL HAIR.BROWN CURLY HAIR. THIN AVERAGE HEIGHT.WEARING GREEN SCRUB BOTTOMS AND BLACK SWEATER AND A WINTER COAT) Speech: Other (CIRCUMSTANTIAL) Eye Contact: Normal Motor Activity: Normal Affect: Full Mood: Euthymic Orientation Impairment: None Memory Impairment: None Attention: Normal Hallucinations: None Other: None Suicidality: None Homicidality: None Delusions: None Behavior: Cooperative Insight: Fair, Poor Judgment: Poor Treatment RISPERIDONE 2 MG P.O. Q.H.S. DEPAKOTE ER 1250 MG P.O. Q.H.S. Monitoring by Staff, Milieu, Group, and Individual counseling as needed -- According to the [place] Suicide Assessment the above named patient is on Q15 MINUTE CHECKS. [id number] is unable to formulate a plan to safely meet their basic needs of food, clothing, and intermediate due to the severity of their mental illness. We are still titrating medications to an effective dose while maintaining a therapeutic environment to prevent decompensation and readmission. Total time spent 45 minutes REVIEW OF Clinical notes [X ] RN notes [X] PCT documentation [X] SW notes Labs [ X] Medications [X] Care trends/care activity [X] Vitals [X] DISCUSSION WITH plastics sheet finishing press operator [X] Staff SW [X] Treatment Team [X] Discharge UNSURE AT THIS TIME. DISCHARGE HOME OR TO A [facility] IN [facility] CODING VISIT-PSYCHIATRY Date of Service: August 03, 2024 Billing Provider: CELINA BOJORQUEZ APRN Psych Common Visit Codes: [id number] INP/OBS CARE(Mod) CELINA BOJORQUEZ APRN August 03, 2024 14:18
[2024-08-03 19:00] VITALS: RESP 20; O2SAT 99
[2024-08-03 20:00] VITALS: BP 132/72; PULSE 60; RESP 20; TEMP 98.1; O2SAT 99
--- NOTE | 2024-08-03 20:52 | PROGRESS NOTE ---
Daily Progress Note Providers to CC ~ Antibiotic Timeout Antibiotic Ordered?: No Subjective This is the hospitalist progress note on patients hospitalized at [facility]. The patient has no acute medical complaints or concerns and none were voiced by nursing staff either Objective Vital Signs Date Time Temp Pulse Resp B/P (MAP) Pulse Ox O2 Delivery O2 Flow Rate FiO2 08/03/24 08:00 97.1 84 16 117/75 (89) 97 Room Air 07/30/24 07:00 0.0 Gen. No acute distress alert and oriented Lungs clear to ascultation bilaterally, no wheezes rales or rhonchi appreciated Heart normal sinus rhythm no murmurs rubs or clicks noted Abdomen soft nontender bowel sounds are normoactive Lower extremities no clubbing cyanosis, nor edema appreciated bilaterally Problem\Assessment\Plan Problems/Diagnosis: (1) Bipolar disorder # bipolar disorder with amadeo psychoses- Follow up by Psychiatry # substance use disorder- Followed by psychology fellow # tobacco use disorder- On nicotine replacement including a patch and lozenge PRN No acute medical complaints or concerns The hospitalist service will continue to follow the patient while hospitalized at [facility] Date of Service: August 03, 2024 Billing Provider: ENRIQUE BURNETT DO Common Visit Codes: [id number] INP/OBS CARE(LOW) ENRIQUE BURNETT DO August 03, 2024 20:52
--- NOTE | 2024-08-04 07:08 | PROGRESS NOTE ---
Progress Note Dictate Providers to CC ~ Central Line/PICC still needed: N\\A Antibiotic Ordered?: No MRSA Education MRSA Education Provided to pt: No Objective Vitals Vital Signs Date Time Temp Pulse Resp B/P (MAP) Pulse Ox O2 Delivery O2 Flow Rate FiO2 08/03/24 20:00 98.1 60 20 132/72 (92) 99 Room Air Problem\\Assessment\\Plan Problems/Diagnosis: (1) Bipolar disorder (2) Polysubstance abuse Psychiatrist's Progress Note Date of Service: August 04, 2024 Notes CHART REVIEW Pt is a 24 year old single white male who was placed on a 5150 for GD. Pt came to the ER after reporting a history of Bipolar D/O and voiced thoughts of laying on the train tracks. He reportedly told the medical staff in the ER that he was using drugs instead of taking his bipolar medications and wants to get back home to [place], [place]. Toxicology report was positive for amphetamines and THC. PT present as disheveled, exhibited disorganized thought, confusion and stated, I am psychotic, and I need to go to a hospital. Pt was unable to provide a viable plan for food, clothing and care home. There is no history of treatment with [facility] in the past, Pt reported that he has a history of PHF placement. Per EMR he was at [facility] in 2020 for a few days. ASSESSMENT The patient was interviewed in observation room. The patient was actively walking in hallway with headphones on. The patient endorses "Fine." "I just want to leave; I have business outside of here." Denies SI. Denies HI. Denies AVH. Patient endorses adequate sleep and food intake. The patient is stable no acute distress noted. The patient presents hyperverbal, uncooperative at times, word salad, and engaged during session. Per staff report patient is medication compliant. Per staff report the patient can get elevated but is able to redirect himself and calm down. Will continue daily assessment and adjusting treatment as needed. Closely monitor behavior and response to medication during hospitalization. The patient was noted to be on the patient's telephone speaking with 911 endorsing ' I am at [facility] in everyone is in here is psychotic and I would like to report all the crimes that I have committed in [facility] so that the [address] can come pick me up." the patient was asked to hang up the phone and he did politely. Results Of any Diagn. Testing REVIEW OF LABS WBC 10.7 RBC 4.13 HEMOGLOBIN 12.1 HEMATOCRIT 36.1 PLATELET 328 URINE TOX SCREEN POSITIVE FOR AMPHETAMINES AND CANNABIS SODIUM 142 POTASSIUM 3.5 CHLORIDE 106 ANION GAP 6 BUN 13 CREATININE 0.80 GLUCOSE 99 CALCIUM 8.6 Appearnace: Other (APPROPRIATE. FULL FACIAL HAIR.BROWN CURLY HAIR. THIN AVERAGE HEIGHT.WEARING GREEN SCRUBs.) Speech: Other (CIRCUMSTANTIAL, WORD SALAD) Eye Contact: Normal Motor Activity: Normal Affect: Constricted Orientation Impairment: None Memory Impairment: None Hallucinations: None Other: None Suicidality: None Homicidality: None Delusions: None Behavior: Cooperative Insight: Poor Judgment: Poor Treatment RISPERIDONE 2 MG P.O. Q.H.S. DEPAKOTE ER 1250 MG P.O. Q.H.S. Monitoring by Staff, Milieu, Group, and Individual counseling as needed -- According to the [place] Suicide Assessment the above named patient is on Q15 MINUTE CHECKS. [id number] is unable to formulate a plan to safely meet their basic needs of food, clothing, and care home due to the severity of their mental illness. We are still titrating medications to an effective dose while maintaining a therapeutic environment to prevent decompensation and readmission. Total time spent 40 minutes REVIEW OF Clinical notes [X ] RN notes [X] PCT documentation [X] SW notes Labs [ X] Medications [X] Care trends/care activity [X] Vitals [X] DISCUSSION WITH stump blower [X] Staff SW [X] Treatment Team [X] Discharge UNSURE AT THIS TIME. DISCHARGE HOME OR TO A [facility] IN [facility] CODING VISIT-PSYCHIATRY Date of Service: August 04, 2024 Billing Provider: CELINA BOJORQUEZ APRN Psych Common Visit Codes: [id number] INP/OBS CARE(Mod) CELINA BOJORQUEZ APRN August 04, 2024 07:08
[2024-08-04 07:30] VITALS: BP 109/76; PULSE 96; RESP 16; TEMP 97.5; O2SAT 97
[2024-08-04] MEDS ORDERED: diphenhydrAMINE 25mg capsule PO STA (15:37)
[2024-08-04] MEDS ORDERED: LORazepam 1 MG tablet PO STA (15:37)
[2024-08-04] MEDS ORDERED: haloperidol 5mg tablet PO ONE (15:40)
[2024-08-04] MEDS: diphenhydrAMINE 50 mg/ml inj ONE (15:52)
[2024-08-04] MEDS: LORazepam 2 mg/ml vial ONE (15:52)
[2024-08-04] MEDS: haloperidol lactate 5mg/ml inj ONE (15:53)
[2024-08-04 19:00] VITALS: RESP 18; O2SAT 98
[2024-08-04 20:00] VITALS: BP 125/71; PULSE 90; RESP 18; TEMP 98.1; O2SAT 98
[2024-08-05 07:30] VITALS: BP 116/76; PULSE 94; RESP 16; TEMP 97.1; O2SAT 97
--- NOTE | 2024-08-05 12:20 | PROGRESS NOTE ---
Daily Progress Note Providers to CC ~ Antibiotic Timeout Antibiotic Ordered?: No Subjective This is the hospitalist progress note on patients hospitalized at [facility]/ [facility]. The patient is doing really well and isn't in a very good mood has no acute medical complaints or concerns. Objective Vital Signs Date Time Temp Pulse Resp B/P (MAP) Pulse Ox O2 Delivery O2 Flow Rate FiO2 08/05/24 07:30 Room Air 08/05/24 07:30 97.1 94 16 116/76 (89) 97 0.0 Gen. No acute distress alert and oriented Lungs clear to ascultation bilaterally, no wheezes rales or rhonchi appreciated Heart normal sinus rhythm no murmurs rubs or clicks noted Abdomen soft nontender bowel sounds are normoactive Lower extremities no clubbing cyanosis, nor edema appreciated bilaterally Problem\Assessment\Plan Problems/Diagnosis: (1) Bipolar disorder # bipolar disorder with amadeo psychoses- Follow up by Psychiatry # substance use disorder- Followed by child psychiatrist # tobacco use disorder- On nicotine replacement including a patch and lozenge PRN No acute medical complaints or concerns The hospitalist service will continue to follow the patient while hospitalized at [facility] Date of Service: August 05, 2024 Billing Provider: ENRIQUE BURNETT DO Common Visit Codes: [id number] INP/OBS CARE(LOW) ENRIQUE BURNETT DO August 05, 2024 12:20
--- NOTE | 2024-08-05 16:24 | PROGRESS NOTE ---
Progress Note Dictate Providers to CC ~ Central Line/PICC still needed: N\A Antibiotic Ordered?: No Objective Vitals Vital Signs Date Time Temp Pulse Resp B/P (MAP) Pulse Ox O2 Delivery O2 Flow Rate FiO2 08/05/24 07:30 Room Air 08/05/24 07:30 97.1 94 16 116/76 (89) 97 0.0 Problem\Assessment\Plan Problems/Diagnosis: (1) Bipolar disorder (2) Polysubstance abuse Psychiatrist's Progress Note Date of Service: August 05, 2024 Notes Naveen Dalal is a 24 year old single white male who came into [facility] ED and was placed on a 5150 for GD. Pt came to the ER after reporting a history of Bipolar D/O and voiced thoughts of laying on the train tracks. He reportedly told the medical staff in the ER that he was using drugs instead of taking his bipolar medications and wants to get back home to [place], [place]. Toxicology report was positive for amphetamines and THC. PT present as disheveled, exhibited disorgani zed thought, confusion and stated, I am psychotic, and I need to go to a hospital. Patient was unable to provide a viable plan for food, clothing and retirement. There is no history of treatment with [facility] in the past, Pt reported that he has a history of PHF placement. Per EMR he was at [facility] in 2020 for a few days. Patient is a tall male of average weight. He has short unruly curly dark hair. He has some facial hair with mustache. He is wearing a muscle shirt is on backwards with green scrub pants. 'I'm just going to start yelling to say anything just so I can get out of here.' 'I was on Voluntary, and I don't know why I'm not Voluntary anymore. Not at all feeling depressed. No SI. 'Not at all.' 'I lied about that to fix my feet and get some food before going back home.' Been really anxious. 'cigarettes really help with anxiety.' 'I am not going to do hard drugs ever again. 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 'feels like I'm off my medication.' He says the meth helped me while on the streets. 'I don't like always being on camera... and making me really uncomfortable.' 'I feel everybody is really obsessed with me.' A lot of irritability 'because I just want to go outside.' 'not used to staying in doors this long.' 'It's my right Getting a bit depressed... 'Stopped eating food and feet was hurting and I lied about being suicidal.' No thoughts of harming anyone else. Been sleeping great. Except for last night too many tranquilizers in my butt.. 'they've been harassing me here, a lot of people have.' He says his dad doesn't have the best interest at heart. 'I made my decision to come up into this place and I want to make my decision to walk back out.' 'everyone here is harassing me.' 'I don't need to tell you about it.' He wants to be transferred to the group home. 'I don't want to be with any ladies anymore. I on ly want to be with guys. They are all creepy sluts.' Mental Status Eye contact: Fair; Behavior: Cooperative. Speech: Rapid, Pressured, Hyperverbal. Mood: Elevated. Affect: labile Thought process: Mild disorganization, Circumstantial/Tangential at times with Paranoid Delusions. thinking everyone is harassing him. Thought Content: immediate needs/medications. Cognition: A&O X3 not truly why; Insight: Very Poor insight into his mental illness; Judgment: Very Poor; SI Denies/HI Denies, AH Denies/VH Denies Results Of any Diagn. Testing WBC 10.7 RBC 4.13 HEMOGLOBIN 12.1 HEMATOCRIT 36.1 PLATELET 328 URINE TOX SCREEN POSITIVE FOR AMPHETAMINES AND CANNABIS SODIUM 142 POTASSIUM 3.5 CHLORIDE 106 ANION GAP 6 BUN 13 CREATININE 0.80 GLUCOSE 99 CALCIUM 8.6 Treatment Increase Risperdal patient is manic and paranoid/delusional. INCREASE RISPERIDONE 3 MG P.O. Q.H.S. DEPAKOTE ER 1250 MG P.O. Q.H.S. Monitoring by Staff, Milieu, Group, and Individual counseling as needed -- According to the [place] Suicide Assessment the above named patient is on Q15 MINUTE CHECKS. 5250--GD-- Patient is unable to formulate a plan to safely meet their basic needs of food, clothing, and retirement due to the severity of their mental illness. We are still titrating medications to an effective dose while maintaining a therapeutic environment to prevent decompensation and readmission. DISCHARGE UNSURE AT THIS TIME REVIEW OF Clinical notes [X ] RN notes [X] PCT documentation [X] SW notes [X] Labs [ X] Medications [X] Care trends/care activity [X] Vitals [X] DISCUSSION WITH bottom pounder cement shoes [X] Staff SW Treatment Team CODING VISIT-PSYCHIATRY Date of Service: August 05, 2024 Billing Provider: TENISHA CONTRERAS Psych Common Visit Codes: [id number] INP/OBS CARE(High) Problem Qualifiers (1) Bipolar disorder: TENISHA CONTRERAS August 05, 2024 16:24
[2024-08-05 19:00] VITALS: RESP 18
[2024-08-05] MEDS: risperiDONE 0.5mg tablet PO SCH (19:52)
[2024-08-05] MEDS: risperiDONE 2mg tablet PO SCH (19:53)
[2024-08-05 20:00] VITALS: RESP 18
[2024-08-06 07:00] VITALS: RESP 16
[2024-08-06 08:00] VITALS: RESP 16
--- NOTE | 2024-08-06 13:44 | PROGRESS NOTE ---
Progress Note Dictate Providers to CC ~ Central Line/PICC still needed: N\A Antibiotic Ordered?: No Objective Vitals Vital Signs Date Time Temp Pulse Resp B/P (MAP) Pulse Ox O2 Delivery O2 Flow Rate FiO2 08/06/24 08:00 16 08/06/24 07:00 Room Air 0.0 08/05/24 07:30 97.1 94 116/76 (89) 97 Problem\Assessment\Plan Problems/Diagnosis: (1) Bipolar disorder (2) Polysubstance abuse Psychiatrist's Progress Note Date of Service: Aug 06, 2024 Notes Naveen Dalal is a 24 year old single white male who came into [facility] ED and was placed on a 5150 for GD. Pt came to the ER after reporting a history of Bipolar D/O and voiced thoughts of laying on the train tracks. He reportedly told the medical staff in the ER that he was using drugs instead of taking his bipolar medications and wants to get back home to [place], [place]. Toxicology report was positive for amphetamines and THC. PT present as disheveled, exhibited disorganized thought, confusion and stated, I am psychotic, and I need to go to a hospital. Patient was unable to provide a viable plan for food, clothing and penitentiary. There is no history of treatment with [facility] in the past, Pt reported that he has a history of PHF placement. Per EMR he was at [facility] in 2020 for a few days. Patient is a tall male of average weight. He has short unruly curly dark hair. He has some facial hair with mustache. He is wearing a muscle shirt is on backwards with green scrub pants. Got into it with his dad, and he says he was having a lot of paranoid thinking that everyone was watching him on the cameras. Change the Depakote and Risperdal and Thorazine as needed. Mood has mood been a little agitated. Says not today. Thinks the Atarax made him psychotic. The Thorazine helped. 'I like it actually.' Denies AH/VH. Not feeling depressed. 'I'm laying down the law. This BS has gone on too long. I lied about being suicidal.' 'I never was.' I'm not Anab[employer] but if anything happens to my mom or my nephew then I'm suing this place.' He says he is not refusing taking vitals. He slept last night. He says he traveled in his dream. He is demanding and became belligerent. He says he will only agree to a voluntary hold. He was starting to escalate and started cussing at me. He says he isn't leaving the interview room until I agree to release him or a guarantee he can get a ride back to [place] before August 11. Mental Status Eye contact: Fair; Behavior: Cooperative. Speech: Rapid, Pressured, Hyperverbal. Mood: Elevated. Affect: labile Thought process: Mild disorganization, Circumstantial/Tangential at times with Paranoid Delusions. thinking everyone is harassing him. Thought Content: immediate needs/medica tions. Cognition: A&O X3 not truly why; Insight: Very Poor insight into his mental illness; Judgment: Very Poor; SI Denies/HI Denies, AH Denies/VH Denies Results Of any Diagn. Testing WBC 10.7 RBC 4.13 HEMOGLOBIN 12.1 HEMATOCRIT 36.1 PLATELET 328 URINE TOX SCREEN POSITIVE FOR AMPHETAMINES AND CANNABIS SODIUM 142 POTASSIUM 3.5 CHLORIDE 106 ANION GAP 6 BUN 13 CREATININE 0.80 GLUCOSE 99 CALCIUM 8.6 Treatment We will increase Depakote and change the times he takes the Depakote and Risperdal to help more during the day. He will use the Thorazine as needed for his agitation. RISPERIDONE 1 MG P.O. AM and 2mg HS. DEPAKOTE ER 750MG P.O. Q.H.S. Thorazine 50mg po PRN Anxiety/Agitation. Monitoring by Staff, Milieu, Group, and Individual counseling as needed -- According to the [place] Suicide Assessment the above named patient is on Q15 MINUTE CHECKS. 5250--GD-- Patient is unable to formulate a plan to safely meet their basic needs of food, clothing, and penitentiary due to the severity of their mental illness. We are still titrating medications to an effective dose while maintaining a therapeutic environment to prevent decompensation and readmission. DISCHARGE UNSURE AT THIS TIME REVIEW OF Clinical notes [X ] RN notes [X] PCT documentation [X] ORALIA notes [X] Labs [ X] Medications [X] Care trends/care activity [X] Vitals [X] DISCUSSION WITH wide load escort [X] Staff SW Treatment Team CODING VISIT-PSYCHIATRY Date of Service: Aug 06, 2024 Billing Provider: TENISHA CONTRERAS Psych Common Visit Codes: [id number] INP/OBS CARE(Mod) Problem Qualifiers (1) Bipolar disorder: TENISHA CONTRERAS Aug 06, 2024 13:44
[2024-08-06 19:00] VITALS: RESP 16; O2SAT 91
[2024-08-06 20:00] VITALS: BP 131/74; PULSE 105; RESP 16; TEMP 97.7; O2SAT 91
[2024-08-06] MEDS: divalproex sod 250mg ER (24-hour) tablet PO SCH (20:15)
[2024-08-07] MEDS: risperiDONE 0.5mg tablet PO SCH (07:07)
[2024-08-07 08:00] VITALS: BP 117/77; PULSE 89; RESP 16; TEMP 97.2; O2SAT 97
--- NOTE | 2024-08-07 11:38 | PROGRESS NOTE ---
Daily Progress Note Providers to CC ~ Antibiotic Timeout Antibiotic Ordered?: No Subjective No new complaints. Patient states he is short is father with a BB gun because he would not by cat food for patient's Cat .Patient states he has been off his bipolar meds and needs to be on them. Objective Vital Signs Date Time Temp Pulse Resp B/P (MAP) Pulse Ox O2 Delivery O2 Flow Rate FiO2 08/06/24 20:00 97.7 105 16 131/74 (93) 91 Room Air 08/06/24 19:00 0.0 Gen. awake alert oriented asymptomatic HEENT: Normocephalic, atraumatic, pupils round reactive to light and accommodation, extraocular movements are intact, sclera anicteric, conjunctiva pinkish, moist oral mucosa, no rash or ulcers. NECK: Supple, no JVD, trachea midline. CHEST: Clear to auscultation, no wheezes crackles or rhonchi. HEART: Regular rate rhythm, no murmur gallop or rub. ABDOMEN: Soft, nontender, no organomegaly. EXTREMITIES: No cyanosis clubbing or edema. NEURO EXAM: Grossly nonfocal. MUSCULOSKELETAL : No joint swelling or deformities. SKIN: No rash or ulcers noted. Problem\Assessment\Plan Problems/Diagnosis: (1) Bipolar disorder # bipolar disorder with amadeo psychoses: Continue treat per psych # substance use disorder- : Patient has been followed by psychotherapist social worker # tobacco use disorder- On nicotine replacement including a patch and lozenge PRN Patient has no acute medical complaints or concerns The hospitalist service will continue to follow the patient as per policy / protocol. I will sign off . Date of Service: Aug 07, 2024 Billing Provider: CHAGO BRIZUELA MD Common Visit Codes: [id number] INP/OBS CARE(LOW) Problem Qualifiers (1) Bipolar disorder: CHAGO BRIZUELA MD Aug 07, 2024 11:38
--- NOTE | 2024-08-07 12:02 | PROGRESS NOTE ---
Progress Note Dictate Providers to CC ~ Central Line/PICC still needed: N\\A Antibiotic Ordered?: No MRSA Education MRSA Education Provided to pt: No Objective Vitals Vital Signs Date Time Temp Pulse Resp B/P (MAP) Pulse Ox O2 Delivery O2 Flow Rate FiO2 08/07/24 08:00 16 97 Room Air 08/07/24 08:00 97.2 89 117/77 (90) 08/06/24 19:00 0.0 Counseling Services Smoking & Tobacco Cessation: > 10 Minutes Problem\\Assessment\\Plan Problems/Diagnosis: (1) Bipolar disorder (2) Polysubstance abuse Psychiatrist's Progress Note Date of Service: Aug 07, 2024 Notes CHART REVIEW Pt is a 24 year old single white male who was placed on a 5150 for GD. Pt came to the ER after reporting a history of Bipolar D/O and voiced thoughts of laying on the train tracks. He reportedly told the medical staff in the ER that he was using drugs instead of taking his bipolar medications and wants to get back home to [place], [place]. Toxicology report was positive for amphetamines and THC. PT present as disheveled, exhibited disorganized thought, confusion and stated, I am psychotic, and I need to go to a hospital. Pt was unable to provide a viable plan for food, clothing and retirement. There is no history of treatment with [facility] in the past, Pt reported that he has a history of PHF placement. Per EMR he was at [facility] in 2020 for a few days. ASSESSMENT The patient was interviewed in observation room. The patient was actively walking in hallway. The patient endorses 'I am actually doing pretty well up in here." "My dad has me a bus pass and my nurse is going to print it out." "I want to leave today If you let me; I can't just keep staying here oratying with you guys." "I am ready to start my career in the [employer]." Denies SI. Denies HI. Denies AVH. Patient endorses adequate sleep and food intake. The patient is stable no acute distress noted. The patient presents as less hyperverbal, cooperative, a bit disorganized, and engaged during session. Per staff report patient is medication compliant. Per staff report no abnormal behaviors. Will continue daily assessment and adjusting treatment as needed. Cl osely monitor behavior and response to medication during hospitalization. Collateral received from patient's dad Joaquín and Joaquín endorses he is calling and looking for some residential treatment centers for Naveen. Joaquín endorses he is looking into [facility]. Joaquín endorses Naveen can return home but he needs to follow all the rules but he rather . Results Of any Diagn. Testing REVIEW OF LABS WBC 10.7 RBC 4.13 HEMOGLOBIN 12.1 HEMATOCRIT 36.1 PLATELET 328 URINE TOX SCREEN POSITIVE FOR AMPHETAMINES AND CANNABIS SODIUM 142 POTASSIUM 3.5 CHLORIDE 106 ANION GAP 6 BUN 13 CREATININE 0.80 GLUCOSE 99 CALCIUM 8.6 Appearnace: Other (APPROPRIATE. FULL FACIAL HAIR.BROWN CURLY HAIR. THIN AVERAGE HEIGHT.WEARING GREEN SCRUB BOTTOMS AND BLACK SWEATER ) Speech: Tangential, Pressured, Other (CIRCUMSTANTIAL) Eye Contact: Intense Motor Activity: Normal Affect: Full Mood: Euthymic Orientation Impairment: None Memory Impairment: None Attention: Normal Hallucinations: None Other: None Suicidality: None Homicidality: None Delusions: None Behavior: Cooperative Insight: Poor Judgment: Poor Treatment RISPERIDONE 2 MG P.O. Q.H.S. DEPAKOTE ER 750 MG P.O. BID RISPERDAL 1MG PO DAILY TRAZADONE 50MG PO QHS PRN Monitoring by Staff, Milieu, Group, and Individual counseling as needed -- According to the [place] Suicide Assessment the above named patient is on Q15 MINUTE CHECKS. [id number] is unable to formulate a plan to safely meet their basic needs of food, clothing, and retirement due to the severity of their mental illness. We are still titrating medications to an effective dose while maintaining a therapeutic environment to prevent decompensation and readmission. Total time spent 40 minutes REVIEW OF Clinical notes [X ] RN notes [X] PCT documentation [X] SW notes Labs [ X] Medications [X] Care trends/care activity [X] Vitals [X] DISCUSSION WITH assistant editor [X] Staff SW [X] Treatment Team [X] Discharge UNSURE AT THIS TIME. DISCHARGE HOME OR TO A [facility] CODING VISIT-PSYCHIATRY Date of Service: Aug 07, 2024 Billing Provider: CELINA BOJORQUEZ APRN Psych Common Visit Codes: [id number] INP/OBS CARE(Mod) Problem Qualifiers (1) Bipolar disorder: CELINA BOJORQUEZ APRN Aug 07, 2024 12:02
[2024-08-07 19:00] VITALS: RESP 20; O2SAT 95
[2024-08-07 20:00] VITALS: BP 127/68; PULSE 98; RESP 20; TEMP 97.8; O2SAT 95
[2024-08-08 07:00] VITALS: BP 106/63; PULSE 92; RESP 16; TEMP 98.1; O2SAT 99
--- NOTE | 2024-08-08 17:37 | PROGRESS NOTE ---
Progress Note Dictate Providers to CC ~ Central Line/PICC still needed: N\\A Antibiotic Ordered?: No MRSA Education MRSA Education Provided to pt: No Objective Vitals Vital Signs Date Time Temp Pulse Resp B/P (MAP) Pulse Ox O2 Delivery O2 Flow Rate FiO2 08/08/24 07:00 16 99 Room Air 0.0 08/08/24 07:00 98.1 92 106/63 (77) Counseling Services Smoking & Tobacco Cessation: > 10 Minutes Problem\\Assessment\\Plan Problems/Diagnosis: (1) Bipolar disorder (2) Polysubstance abuse Psychiatrist's Progress Note Date of Service: Aug 08, 2024 Notes CHART REVIEW Pt is a 24 year old single white male who was placed on a 5150 for GD. Pt came to the ER after reporting a history of Bipolar D/O and voiced thoughts of laying on the train tracks. He reportedly told the medical staff in the ER that he was using drugs instead of taking his bipolar medications and wants to get back home to [place], [place]. Toxicology report was positive for amphetamines and THC. PT present as disheveled, exhibited disorganized thought, confusion and stated, I am psychotic, and I need to go to a hospital. Pt was unable to provide a viable plan for food, clothing and usp. There is no history of treatment with [facility] in the past, Pt reported that he has a history of PHF placement. Per EMR he was at [facility] in 2020 for a few days. ASSESSMENT The patient was interviewed in observation room. The patient was actively walking in hallway. The patient endorses "I am excited about leaving on ." The patient endorses no worsening mental health symptoms. Denies SI. Denies HI. Denies AVH. Patient endorses adequate sleep and food intake. The patient is stable no acute distress noted. The patient presents as less hyperverbal, cooperative, less disorganized, and engaged during session. Per staff report patient is medication compliant. Per staff report no abnormal behaviors. Will continue daily assessment and adjusting treatment as needed. Closely monitor behavior and response to medication during hospitalization. Results Of any Diagn. Testing REVIEW OF LABS WBC 10.7 RBC 4.13 HEMOGLOBIN 12.1 HEMATOCRIT 36.1 PLATELET 328 URINE TOX SCREEN POSITIVE FOR AMPHETAMINES AND CANNABIS SODIUM 142 POTASSIUM 3.5 CHLORIDE 106 ANION GAP 6 BUN 13 CREATININE 0.80 GLUCOSE 99 CALCIUM 8.6 Appearnace: Other (APPROPRIATE. FULL FACIAL HAIR.BROWN CURLY HAIR. THIN AVERAGE HEIGHT.WEARING GREEN SCRUB BOTTOMS AND BLACK SWEATER) Speech: Other (CIRCUMSTANTIAL) Eye Contact: Normal Motor Activity: Normal Affect: Full Mood: Euthymic Orientation Impairment: None Memory Impairment: None Attention: Normal Hallucinations: None Other: None Suicidality: None Homicidality: None Delusions: None Behavior: Cooperative Insight: Fair Judgment: Fair, Poor Treatment RISPERIDONE 2 MG P.O. Q.H.S. DEPAKOTE ER 750 MG P.O. BID RISPERDAL 1MG PO DAILY TRAZADONE 50MG PO QHS PRN Monitoring by Staff, Milieu, Group, and Individual counseling as needed -- According to the [place] Suicide Assessment the above named patient is on Q15 MINUTE CHECKS. [id number] is unable to formulate a plan to safely meet their basic needs of food, clothing, and usp due to the severity of their mental illness. We are still titrating medications to an effective dose while maintaining a therapeutic environment to prevent decompensation and readmission. Total time spent 40 minutes REVIEW OF Clinical notes [X ] RN notes [X] PCT documentation [X] SW notes Labs [ X] Medications [X] Care trends/care activity [X] Vitals [X] DISCUSSION WITH field artillery basic [X] Staff SW [X] Treatment Team [X] Discharge UNSURE AT THIS TIME. DISCHARGE HOME OR TO A [facility] CODING VISIT-PSYCHIATRY Date of Service: Aug 08, 2024 Billing Provider: CELINA BOJORQUEZ APRN Psych Common Visit Codes: [id number] INP/OBS CARE(Low) Problem Qualifiers (1) Bipolar disorder: CELINA BOJORQUEZ APRN Aug 08, 2024 17:37
[2024-08-08 19:00] VITALS: RESP 15; O2SAT 95
[2024-08-08 20:00] VITALS: BP 144/79; PULSE 92; RESP 15; TEMP 97.8; O2SAT 95
[2024-08-09 08:00] VITALS: BP 115/76; PULSE 92; RESP 16; TEMP 97.4; O2SAT 98
[2024-08-09 10:30] VITALS: RESP 16
--- NOTE | 2024-08-09 13:39 | PROGRESS NOTE ---
Progress Note Dictate Providers to CC ~ Central Line/PICC still needed: N\\A Antibiotic Ordered?: No MRSA Education MRSA Education Provided to pt: No Objective Vitals Vital Signs Date Time Temp Pulse Resp B/P (MAP) Pulse Ox O2 Delivery O2 Flow Rate FiO2 08/09/24 10:30 16 Room Air 08/09/24 08:00 97.4 92 115/76 (89) 98 08/08/24 19:00 0.0 Counseling Services Smoking & Tobacco Cessation: > 10 Minutes Problem\\Assessment\\Plan Problems/Diagnosis: (1) Bipolar disorder (2) Polysubstance abuse Psychiatrist's Progress Note Date of Service: Aug 09, 2024 Notes CHART REVIEW Pt is a 24 year old single white male who was placed on a 5150 for GD. Pt came to the ER after reporting a history of Bipolar D/O and voiced thoughts of laying on the train tracks. He reportedly told the medical staff in the ER that he was using drugs instead of taking his bipolar medications and wants to get back home to [place], [place]. Toxicology report was positive for amphetamines and THC. PT present as disheveled, exhibited disorganized thought, confusion and stated, I am psychotic, and I need to go to a hospital. Pt was unable to provide a viable plan for food, clothing and mcc. There is no history of treatment with [facility] in the past, Pt reported that he has a history of PHF placement. Per EMR he was at [facility] in 2020 for a few days. ASSESSMENT The patient was interviewed in observation room. The patient was actively walking in hallway. The patient endorses "I am doing good." "I am excited about leaving to get home with my mom she has Alzheimer's really bad." "I need to be there to help her." The patient endorses no worsening mental health symptoms. Denies SI. Denies HI. Denies AVH. Patient endorses adequate sleep and food intake. The patient is stable no acute distress noted. The patient presents as calm, cooperative, and engaged during session. Per staff report patient is medication compliant. Per staff report no abnormal behaviors. Patient has shown significant improvement since admission. Will continue daily assessment and adjusting treatment as needed. Closely monitor behavior and response to medication during hospitalization. Results Of any Diagn. Testing REVIEW OF LABS WBC 10.7 RBC 4.13 HEMOGLOBIN 12.1 HEMATOCRIT 36.1 PLATELET 328 URINE TOX SCREEN POSITIVE FOR AMPHETAMINES AND CANNABIS SODIUM 142 POTASSIUM 3.5 CHLORIDE 106 ANION GAP 6 BUN 13 CREATININE 0.80 GLUCOSE 99 CALCIUM 8.6 Appearnace: Other (APPROPRIATE. FULL FACIAL HAIR.BROWN CURLY HAIR. THIN AVERAGE HEIGHT.WEARING STREET CLOTHING.) Speech: Other (CIRCUMSTANTIAL) Eye Contact: Normal Motor Activity: Normal Affect: Full Mood: Euthymic Orientation Impairment: None Memory Impairment: None Attention: Normal Hallucinations: None Other: None Suicidality: None Homicidality: None Delusions: None Behavior: Cooperative Insight: Fair Judgment: Fair Treatment RISPERIDONE 2 MG P.O. Q.H.S. DEPAKOTE ER 750 MG P.O. BID RISPERDAL 1MG PO DAILY TRAZADONE 50MG PO QHS PRN Monitoring by Staff, Milieu, Group, and Individual counseling as needed -- According to the Christmas Suicide Assessment the above named patient is on Q15 MINUTE CHECKS. [id number] is unable to formulate a plan to safely meet their basic needs of food, clothing, and mcc due to the severity of their mental illness. We are still titrating medications to an effective dose while maintaining a th erapeutic environment to prevent decompensation and readmission. Total time spent 50 minutes REVIEW OF Clinical notes [X ] RN notes [X] PCT documentation [X] SW notes Labs [ X] Medications [X] Care trends/care activity [X] Vitals [X] DISCUSSION WITH hotbed transfer operator [X] Staff SW [X] Treatment Team [X] Discharge DISCHARGE HOME [facility] TOMORROW CODING VISIT-PSYCHIATRY Date of Service: Aug 09, 2024 Billing Provider: CELINA BOJORQUEZ APRN Psych Common Visit Codes: [id number] INP/OBS CARE(Low) Problem Qualifiers (1) Bipolar disorder: CELINA BOJORQUEZ APRN Aug 09, 2024 13:39
[2024-08-09 19:00] VITALS: RESP 16; O2SAT 99
--- NOTE | 2024-08-09 19:48 | PROGRESS NOTE- Residence ---
Progress Note - Resident Providers to CC Resident Creating Document: JOSE R GARRETT RES ~ Antibiotic Timeout Antibiotic Ordered?: No Subjective Patient seen and examined at bedside. Comfortably sleeping in his room. No concerns or complaints at this time. He states that he is waiting for his ride back home tomorrow. Objective Vital Signs Date Time Temp Pulse Resp B/P (MAP) Pulse Ox O2 Delivery O2 Flow Rate FiO2 08/09/24 10:30 16 Room Air 08/09/24 08:00 97.4 92 115/76 (89) 98 08/08/24 19:00 0.0 General: Awake and Alert, no acute distress. HEENT: Conjunctiva pink, Sclera clear, Mucus Membranes moist. Neck: Supple without masses and tenderness. Resp: Unlabored. Equal breath sounds bilaterally. Heart: Regular rhythm, normal S1 and S2, no rub, murmur or gallop. Abdomen: Soft and non tender no organomegaly. Normal bowel sounds x4 quadrant normoactive. No guarding or rigidity. Extremities: Normal ROM, no swelling, nontender. No cyanosis,clubbing or ed jackson. 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 Skin: Warm and Dry. Plan Plan Bipolar disorder with psychosis Substance use disorder Tobacco use disorder Management as per psychiatrist Hospitalist team will continue to follow up with the patient Date of Service: Aug 09, 2024 Billing Provider: KRISS GRADY MD Common Visit Codes: [id number] INP/OBS CARE(MOD) JOSE R GARRETT RES Aug 09, 2024 19:48 KRISS GRADY MD Aug 09, 2024 22:10
[2024-08-09 20:00] VITALS: BP 129/91; PULSE 91; RESP 16; TEMP 96.9; O2SAT 99
[2024-08-10] MEDS ORDERED: RISP2TAB52 PO (05:10)
[2024-08-10] MEDS ORDERED: DIVA250T8 PO (05:10)
[2024-08-10 07:00] VITALS: BP 114/67; PULSE 68; RESP 16; TEMP 97.7; O2SAT 99
--- NOTE | 2024-08-10 10:40 | DISCHARGE SUMMARY ---
Discharge Summary Providers to CC ~ Discharge Summary Admission Diagnosis: BIPOLAR DISORDER. POLYSUBSTANCE ABUSE Hospital Course DATE OF ADMISSION: DATE OF DISCHARGE: Discharge Diagnosis\\Comment: BIPOLAR DISORDER. POLYSUBSTANCE ABUSE Operations\\Procedures: NONE Consultants: MEDICAL TEAM Complications: NONE Condition on DC: Stable 2 or more antipsychotic used: No 2/more antipsychotic addressed: No Does Patient smoke: Yes Smoking education given.: Yes New Medications: Divalproex Sodium (Divalproex Sodium Er) 250 Mg Tab.sr.24h 750 MG PO BID for 30 Days, #180 TAB.SR Continued Medications: Risperidone (Risperidone) 2 Mg Tab.rapdis 1 TAB PO HS for 30 Days, #30 TAB 0 Refills (This prescription has been renewed) Discontinued Medications: Divalproex Sodium (Depakote ER) 250 Mg Tab.er.24h 5 TAB PO HS for 30 Days, #30 TAB 0 Refills Discharge Summary: CHART REVIEW Pt is a 24 year old single white male who was placed on a 5150 for GD. Pt came to the ER after reporting a history of Bipolar D/O and voiced thoughts of laying on the train tracks. He reportedly told the medical staff in the ER that he was using drugs instead of taking his bipolar medications and wants to get back home to [place], [place]. Toxicology report was positive for amphetamines and THC. PT present as disheveled, exhibited disorganized thought, confusion and stated, I am psychotic, and I need to go to a hospital. Pt was unable to provide a viable plan for food, clothing and senior care. There is no history of treatment with [facility] in the past, Pt reported that he has a history of PHF placement. Per EMR he was at [facility] in 2020 for a few days. Patient actively seen and examined on day of discharge 08/10/2024, by myself, WILL Rosales. The patient is interviewed in observation room. The patient endorses "Good." Denies SI. Denies HI. Denies AVH. Naveen was able to formulate a safety plan which includes going to the emergency room if symptoms return or worsen. Call [phone] or [phone] for immediate assistance if necessary. During his hospital stay, Naveen receive multidisciplinary treatment she adhered to his medication regimen and has been pleasant and cooperative. He denies any suicidal ideation (SI), homicidal ideation (HI), auditory/visual hallucination (HI). Staff has reported no behavioral issues, and the patient has been sleeping well, adequate food intake, with no mood or behavioral changes noted. The decision to discharge Naveen was made in consensus with the treatment team, including the social scientist, clinical unit coordinator, and devulcanizer charger on duty. Patient was E scribed a 30 day supply of medication to preferred pharmacy. MENTAL STATUS EXAM APPEARANCE: APPROPRIATELY. DRESSED IN STREET CLOTHING. SPEECH: CIRCUMSTANTIAL EYE CONTACT: NORMAL AFFECT: CONGRUENT WITH MOOD MOOD: "GOOD" ORIENTATION IMPAIRMENT: NONE MEMORY IMPAIRMENT: NONE ATTENTION: NORMAL HALLUCINATIONS: NONE SUICIDALITY: NONE HOMICIDALITY: NONE DELUSIONS: NONE BEHAVIOR: COOPERATIVE, PLEASANT JUDGMENT: FAIR INSIGHT: FAIR Continue Current Inpatient Psychotropic Regimen @ home Follow-Up with Psychiatric Provider Safety Plan Discussed DISCHARGE CONDITION: Her readiness for discharge is supported by his stable mental status, adherence to treatment, and proactive approach to managing his mental health. Denies SI. Denies HI. Denies A/V/H. The patient has been informed to continue follow-up care to ensure ongoing support and monitoring. Patient discharged to [facility]. *Problems/Diagnosis: (1) Bipolar disorder Status: Acute (2) Polysubstance abuse Status: Acute Total Time Spent on D/C: > 30 Minutes Counseling Services Smoking & Tobacco Cessation: > 10 Minutes CODING VISIT-PSYCHIATRY Date of Service: Aug 10, 2024 Billing Provider: CELINA BOJORQUEZ APRN Psych Common Visit Codes: [id number]-EHH/OBS DISCH DAY >30min Problem Qualifiers (1) Bipolar disorder: CELINA BOJORQUEZ APRN Aug 10, 2024 10:35
== END 2024-08-10 13:06 | disposition home or self-care (01) | DRG 885 ==
LOC: ER 08:26 → UNDOADMIN 18:00 → ADULT MH 18:00
PROVIDERS: ADMIT Psychiatry & Neurology Psychiatry; ATTEND Psychiatry & Neurology Psychiatry
PROC: GZHZZZZ Group Psychotherapy (ICD-10-PCS; principal; 2024-07-26)
PROC: GZ51ZZZ Individual Psychotherapy, Behavioral (ICD-10-PCS; 2024-07-26)
DX: F31.9 Bipolar disorder, unspecified (principal); Z59.00 Homelessness unspecified; R45.851 Suicidal ideations; F19.10 Other psychoactive substance abuse, uncomplicated; Z20.822 Contact with and (suspected) exposure to COVID-19; F41.9 Anxiety disorder, unspecified; J45.909 Unspecified asthma, uncomplicated; F17.210 Nicotine dependence, cigarettes, uncomplicated; Z79.899 Other long term (current) drug therapy; Z76.5 Malingerer [conscious simulation]; Z88.8 Allergy status to other drugs, medicaments and biological substances
CPT/HCPCS: 36415; 80048; 80061; 80164; 80305; 80320; 81001; 85007; 85025; 87081; 87811; 99285; A6446; A6449; J1200; J1630; J2060; J3360; J3490; Q0161; Q0177

== ENCOUNTER 2024-09-09 08:27 | Inpatient (IN) | payer BC ==
[~2024-09-09] VITALS: Ht 175.3 cm; Wt 75.0 kg
[~2024-09-09 08:27] MED LIST changes: -DIVA-81 PO; +DIVA250T8 PO
[2024-09-09 08:29] VITALS: TEMP 97.9
--- NOTE | 2024-09-09 08:54 | Physician Documentation ---
History of Present Illness General Chief Complaint: Shortness of Breath Stated Complaint: TROUBLE BREATHING Time Seen by MD: 08:42 Primary Medical Doctor: [facility] Mode of Arrival: Ambulatory History of Present Illness Initial Comments The patient is a 24-year-old male with a psychiatric history and history of polysubstance abuse who admits to having smoked a lot of meth last night and now presents with shortness of breath. He denies chest pain. Medication Reconciliation Allergies: Coded Allergies: bupropion (Verified Allergy, Unknown, 07/24/24) lamotrigine (Verified Allergy, Unknown, 07/24/24) paroxetine (Verified Allergy, Unknown, 07/24/24) sertraline (Verified Allergy, Unknown, 07/24/24) Scheduled Divalproex Sodium (Divalproex Sodium Er), 750 MG PO BID Risperidone (Risperidone), 1 TAB PO HS Past Medical History Past Medical History: Anxiety, Bipolar, Depression Past Surgical History: no surgical history Smoking: Cigarettes Drug Use: marijuana Lives In: Home Review of Systems ROS Constitutional: Denies chills, fatigue, fever, weight gain or weight loss. HEENT: Denies hearing loss, sinus pressure or visual changes. Respiratory: Short of breath Cardiovascular: Denies chest pain, pain while walking (claudication), edema or palpitations. Gastrointestinal: Denies abdominal pain, blood in stool, constipation, diar lb, heartburn, loss of appetite, nausea or vomiting. Genitourinary: Denies painful urination (dysuria), excessive amount of urine (polyuria) or urinary frequency. Metabolic/Endocrine: Denies cold intolerance, heat intolerance, excessive thirst (polydipsia) or excessive hunger (polyphagia). Neurological: Denies dizziness, extremity numbness, extremity weakness, headaches, seizures or tremors. Psychiatric: Denies anxiety or depression. Integumentary: Denies breast discharge, breast lump, hives, mole change(s), rash or skin lesion. Musculoskeletal: Denies back pain, joint pain, joint swelling or neck pain. Hematologic: Denies easily bleeding, easily bruises, lymphedema or issues with blood clots. Immunologic: Denies food allergies or seasonal allergies. Physical Exam Physical Exam Vital Signs: Temperature: 97.9, Source: Oral, Heart Rate: 106, Respiratory Rate: 22, BP: 134/77, Pulse Oximetry: 100, Weight: 75.000 Physical Exam Physical Exam Vitals and nursing note reviewed. Constitutional: General: Patient is awake, alert, oriented x 4 in no acute distress and well appearing. Speech is clear and lucid. Appearance: Quite anxious and hyperventilating. HENT: Head: Normocephalic and atraumatic. Mouth/Throat: Mouth: Mucous membranes are moist. Pharynx: Oropharynx is clear. Eyes: General: No scleral icterus. Extraocular Movements: Extraocular movements intact. Pupils: Pupils are equal, round, and reactive to light. Cardiovascular: Rate and Rhythm: Normal rate and regular rhythm. Heart sounds: No murmur heard. Pulmonary: Effort: No respiratory distress. Breath sounds: No wheezing, rhonchi or rales. Abdominal: General: There is no distension. Palpations: There is no fluid wave, hepatomegaly or mass. Tenderness: There is no abdominal tenderness. There is no guarding. Musculoskeletal: General: No swelling or deformity. Skin: Coloration: Skin is not jaundiced. Findings: No erythema or rash. Neurological: Mental Status: Patient is alert. Progress Results/Orders Results/Orders Orders - PERCY MAY MD Potassium Cl 20meq/15ml Oral (Potassium (09/09/24 10:40) Page Hospitalist (09/09/24 10:38) Potassium Cl 10meq/100ml Bag (Potassium (09/09/24 10:50) Completed Orders - PERCY MAY MD CMP (09/09/24 08:49) Cbc/Diff (09/09/24 08:49) MG (09/09/24 08:49) LA (09/09/24 08:49) Ethanol (09/09/24 08:49) D-Dimer (09/09/24 08:49) Drug Screen, Urine (09/09/24 08:49) Lorazepam Tablet (Ativan Tablet) (09/09/24 08:50) Hs Troponin I W Calculations (09/09/24 08:53) PBNP (09/09/24 08:53) Risperidone Tablet (Risperdal Tablet) (09/09/24 09:20) Electrocardiogram (09/09/24 ) Medications Received in ER Medications (Trade) Dose Ordered Sig/Maricruz Route PRN Reason Start Time Stop Time Status Last Admin Dose Admin (Risperdal tablet) 1 mg ONCE ONCE PO 09/09/24 09:20 09/09/24 09:21 DC 09/09/24 09:28 1 MG (POTASSIUM Cl 20mEq/15mL oral solution) 40 meq DAILY PO 09/09/24 10:40 09/09/24 10:41 40 MEQ Potassium Chloride 100 ml @ 100 mls/hr Q1H IV 09/09/24 10:50 09/09/24 11:49 09/09/24 11:03 100 MLS/HR Vital Signs 09/09/24 09/09/24 09/09/24 08:29 08:40 10:44 Temp 97.9 Pulse 106 69 Resp 34 22 20 B/P (MAP) 134/77 136/72 (93) Pulse Ox 100 100 O2 Flow Rate 0 Laboratory Tests Test 09/09/24 09:56 White Blood Count 14.8 H Red Blood Count 4.84 Hemoglobin 14.3 Hematocrit 42.6 Mean Corpuscular Volume 88.0 Mean Corpuscular Hemoglobin 29.5 Mean Corpuscular Hemoglobin Concent 33.5 Red Cell Distribution Width 15.2 H Platelet Count 330 Mean Platelet Volume 7.4 Neutrophils (%) (Auto) 61.6 Lymphocytes (%) (Auto) 24.5 Monocytes (%) (Auto) 12.2 H Eosinophils (%) (Auto) 0.7 Basophils (%) (Auto) 1.0 Neutrophils # (Auto) 9.1 H Lymphocytes # (Auto) 3.6 Monocytes # (Auto) 1.8 H Eosinophils # (Auto) 0.1 Basophils # (Auto) 0.2 CBC Comment D-Dimer 0.49 D-Dimer Comment Sodium Level 138 Potassium Level 2.8 *L Chloride Level 101 Carbon Dioxide Level 21.4 L Anion Gap 16 Blood Urea Nitrogen 14 Creatinine 1.12 H Estimated GFR/1.73 m2 81 BUN/Creatinine Ratio 12.5 Glucose Level 85 Lactic Acid Level 1.5 Calcium Level 9.1 Magnesium Level 1.8 Total Bilirubin 1.1 H Aspartate Amino Transf (AST/SGOT) 19 Alanine Aminotransferase (ALT/SGPT) 22 Alkaline Phosphatase 63 Troponin I High Sensitivity 6 Pro-B-Type Natriuretic Peptide 73 Total Protein 8.2 Albumin 4.1 Globulin 4.1 Albumin/Globulin Ratio 1.0 L Chemistry Comments Urine Opiates Screen Negative Urine Methadone Screen Negative Urine Fentanyl Screen Negative Urine Barbiturates Screen Negative Urine Phencyclidine Screen Negative Urine Amphetamines Screen Positive H Urine Benzodiazepines Screen Negative Urine Cocaine Screen Negative Urine Cannabinoids Screen Drug Screen Comment Ethyl Alcohol Level < 10 Medical Decision Making Findings EKG medically necessary in the evaluation of methamphetamine use and interpreted by me at the time of patient evaluation. Rhythm is sinus arrhythmia with a rate of 81. Impression: Sinus arrhythmia, otherwise normal EKG. ECG reading does not show any acute signs of obvious ischemia. No evidence of A- V block. No short [place], delta waves, or wide QRS concerning for Euvrm-Lrgmyubak-Zsqpy. No long QT events on my read. I do not see evidence of B rugada with ST elevations in V1 through V3. No epsilon wave noted. No low voltage suggestive of pericardial effusion. No right ventricular strain pattern. Departure Disposition: 09 ADMITTED INPATIENT Admitted to Inpatient Unit: to hospitalist Impression: Primary Impression: Methamphetamine intoxication Additional Impression: Hypokalemia Condition: Stable Referrals: NO PRIMARY CARE PROVIDER (PCP) Signature Scribe Signature: . Attestation: . PERCY MAY MD Sep 09, 2024 08:54
[2024-09-09 10:14] LABS: MEAN PLATELET VOLUME 7.4 FL (7.4-10.4); RED CELL DISTRIBUTION WIDTH 15.2 % (11.5-14.5)
[2024-09-09 10:30] LABS: CREATININE 1.12 MG/DL (0.60-1.10); ETHANOL < 10 MG/DL (<10); PRO BRAIN NATRIURETIC PEPTIDE 73 PG/ML (0-125); TOTAL CARBON DIOXIDE 21.4 MMOL/L (24-32); eCRCL 102 ML/MIN; eGFR 81 ML/MIN
[2024-09-09 10:31] LABS: URINE AMPHETAMINE SCREEN POSITIVE (Neg); URINE BARBITUATE SCREEN NEGATIVE (Neg); URINE BENZODIAZEPINES SCREEN NEGATIVE (Neg); URINE COCAINE SCREEN NEGATIVE (Neg); URINE METHADONE SCREEN NEGATIVE (Neg); URINE OPIATE SCREEN NEGATIVE (Neg); URINE PHENCYCLIDINE SCREEN NEGATIVE (Neg)
[2024-09-09] MEDS: POTASSIUM CHLORIDE 20 MEQ/15 ML oral solution PO SCH (10:41)
--- NOTE | 2024-09-09 10:58 | ELECTROCARDIOGRAPH REPORT ---
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
[2024-09-09] MEDS: potassium CL 10mEq/100ml bag 100 ML IV SCH (11:03)
[2024-09-09 11:15] VITALS: BP 130/74; PULSE 88; RESP 20; O2SAT 100
[2024-09-09] MEDS ORDERED: HYDROcodone/acetaminophen 5mg/325mg tablet PO PRN (11:30)
[2024-09-09] MEDS ORDERED: magnesium sulf-water 2g/50mL 50 ML IV PRN (11:30)
[2024-09-09] MEDS ORDERED: potassium Cl 20 mEq SR tablet PO PRN ×2 (11:30)
[2024-09-09] MEDS ORDERED: potassium Cl 40MEQ/1/2NS 520ml 520 ML IV PRN (11:30)
[2024-09-09] MEDS ORDERED: ondansetron/PF 4mg/2ml inj IV PRN (11:30)
[2024-09-09] MEDS ORDERED: magnesium sulf-water 4G/100mL 100 ML IV PRN (11:30)
[2024-09-09] MEDS ORDERED: magnesium Cl slow-release 64mg tablet PO PRN (11:30)
[2024-09-09] MEDS: normal saline 1000ml 1,000 ML IV SCH (11:33)
[2024-09-09] MEDS: nicotine 21mg patch - 24 hr TD ONE (11:33)
[2024-09-09] MEDS ORDERED: NICOTINE POLACRILEX 2 MG LOZENGE BC PRN (12:00)
--- NOTE | 2024-09-09 12:22 | HISTORY AND PHYSICAL-Residence ---
History & Physical Providers to CC Resident Creating Document: EDER THOMAS RES ~ History of Present Illness Primary Medical Doctor: [facility] Reason for Admit\Complaint: Shortness of breadth History of Present Illness This is a 24-year-old male with history of bipolar disorder with a psychosis, methamphetamine abuse, tobacco abuse came to the ER with a chief complaint of shortness of breadth. He reports that he is not able to take air in. He appeared very anxious and is an unreliable historian. He was in tears and reported that he has smoked a lot of meth yesterday. Initially he wanted to talk to his father and later said that his father would be stressed out and would not want his father to know that he is in the hospital. Denies any chest pain, palpitations, leg swellings, lightheadedness. Never had any cardiac issues. He was previously admitted in the psychiatric unit for suicidal thoughts. He was managed for bipolar disorder with psychosis. His home medications include divalproex and risperidone. Allergies: Coded Allergies: bupropion (Verified Allergy, Unknown, 09/09/24) lamotrigine (Verified Allergy, Unknown, 09/09/24) paroxetine (Verified Allergy, Unknown, 09/09/24) sertraline (Verified Allergy, Unknown, 09/09/24) Home Medications Home Medications Active Divalproex Sodium Er (Divalproex Sodium) 250 Mg Tab.sr.24h 750 Mg PO BID 30 Days Risperidone 2 Mg Tab.rapdis 1 Tab PO HS 30 Days Past Medical History Past Medical History Bipolar disorder with psychosis Past Surgical History Surgical History Comment No surgical history Family History Family History: Patient reports no known family medical history. Past Social History Social History Comment Has been smoking since the age of 17, smokes more than one pack a day. Denies any history of alcohol use Reports using methamphetamine, smokes it. Also smokes marijuana. After she was discharged from the psychiatric unit, he was living on the streets. Smoking: Cigarettes Drug Use: Marijuana Lives In: Home ROS ROS As in HPI Exam Vitals: Vital Signs Date Time Temp Pulse Resp B/P (MAP) Pulse Ox O2 Delivery O2 Flow Rate FiO2 09/09/24 11:15 88 20 130/74 (92) 100 0 09/09/24 11:14 Room Air* N/A 09/09/24 08:29 97.9 General: General: Awake and Alert, appeared anxious. HEENT: Conjunctiva pink, Sclera clear, Mucus Membranes moist. Neck: Supple without masses and tenderness. Resp: Unlabored. Equal breath sounds bilaterally. Heart: Regular rhythm, normal S1 and S2, no rub, murmur or gallop. Abdomen: Soft and non tender no organomegaly. Normal bowel sounds x4 quadrant normoactive. No guarding or rigidity. Extremities: Normal ROM, no swelling, nontender. No cyanosis,clubbing or edema. 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 Skin: Warm and Dry. Diagnostic Data Last Recorded Lab Results: 09/09/24 0956 09/09/24 0956 Diagnostic Data: Laboratory Tests Test 09/09/24 09:56 D-Dimer 0.49 MG/L FEU (0-0.50) D-Dimer Comment Advance Care Planning Advanced Care plannin - 30 Minutes Additional Plan Assessment This is a 24-year-old male with history of bipolar disorder with psychosis, methamphetamine abuse, tobacco abuse came to the ER with a chief complaint of difficulty in breathing. He appeared very anxious and admits to using a lot of meth yesterday. He is being admitted for methamphetamine toxicity. Plan Methamphetamine abuse Received one dose of Ativan in the ER. U tox ordered. Ordered echo to to look for any underlying amphetamine induced cardiomyopathy. EKG did not show any significant findings. commissioner of relocation services consulted. Hypokalemia Potassium 2.6, On potassium replacement protocol We will follow up with repeat BMP. Reactive leukocytosis Elevated WBC count No signs of infections. We will follow up with repeat labs. Bipolar disorder with psychosis Continued home medications divalproex and risperidone. Code status: Full code DVT prophylaxis: Heparin Diet: Regular diet Status: Guarded Eder Thomas M.D PGY2 Date of Service: Sep 09, 2024 Billing Provider: ALF CHILDS MD Common Visit Codes: [id number] INP/OBS CARE (HIGH) Secondary Visit Codes: [id number] CARE PLAN 30 MINUTES EDER THOMAS, RES Sep 09, 2024 12:22 ALF CHILDS MD Sep 09, 2024 18:22
--- NOTE | 2024-09-09 16:42 | DISCHARGE SUMMARY-Residence ---
Discharge Summary Providers to CC Resident Creating Document: [facility] ~ Discharge Summary Admission Diagnosis: Meth abuse , hypokalemia , Acute kidney injury Hospital Course DATE OF ADMISSION: 09/09/2024 DATE OF AMA: 09/09/2024 PATIENT LEFT AGAINST MEDICAL ADVICE Labs WBC 14.8 Hemoglobin 14.3 Sodium 138 Potassium 2.8 Creatinine 1.12 BUN 14 Urine toxicology positive for methamphetamine Discharge Diagnosis\Comment: Methamphetamine abuse Hypokalemia Reactive leukocytosis Bipolar disorder with psychosis. Operations\Procedures: None Consultants: None Complications: None Condition on DC: Stable Discharge Summary: This is a 24-year-old male with history of bipolar disorder with a psychosis, methamphetamine abuse, tobacco abuse came to the ER with a chief complaint of shortness of breadth. He reports that he is not able to take air in. He appeared very anxious and is an unreliable historian. He was in tears and reported that he has smoked a lot of meth yesterday. I He was previously admitted in the psychiatric unit for suicidal thoughts. He was managed for bipolar disorder with psychosis. His home medications include divalproex and risperidone. He was admitted for methamphetamine abuse, received one dose of Ativan in the ER. U tox was positive for methamphetamine. Echo was ordered to lick for any underlying methamphetamine induced cardiomyopathy. EKG did not show any specific changes. Potassium was replaced for hypokalemia. Continued home medications divalproex and risperidone for bipolar disorder with psychosis. The nurse reported that the patient left AMA before I could go and talk to the patient. *Problems/Diagnosis: (1) Methamphetamine intoxication Status: Acute (2) Hypokalemia Status: Acute (3) Bipolar disorder Status: Acute (4) Homelessness Status: Acute Total Time Spent on D/C: Up to 30 Minutes Date of Service: Sep 09, 2024 Billing Provider: ALF CHILDS MD Common Visit Codes: 09029-WGG/OBS DISCH DAY <30MIN [facility] Sep 09, 2024 16:40 ALF CHILDS MD Sep 09, 2024 18:23
[2024-09-09] MEDS ORDERED: divalproex sod 250mg ER (24-hour) tablet PO SCH (20:00)
[2024-09-09] MEDS ORDERED: heparin, porcine 5000 units/ml vial SQ SCH (20:00)
[2024-09-10] MEDS ORDERED: RISP1TAB69 PO (11:13)
== END 2024-09-09 12:25 | disposition left against medical advice (07) | DRG 641 ==
LOC: ER 08:28 → ED HOLD 11:32
PROVIDERS: ADMIT Internal Medicine; ATTEND Internal Medicine
DX: E87.6 Hypokalemia (principal); F31.9 Bipolar disorder, unspecified; F15.129 Other stimulant abuse with intoxication, unspecified; F41.9 Anxiety disorder, unspecified; D72.823 Leukemoid reaction; Z53.21 Procedure and treatment not carried out due to patient leaving prior to being seen by health care provider; Z88.8 Allergy status to other drugs, medicaments and biological substances; Z88.6 Allergy status to analgesic agent; Z87.891 Personal history of nicotine dependence; Z79.899 Other long term (current) drug therapy
CPT/HCPCS: 36415; 80053; 80305; 80320; 83605; 83735; 83880; 84484; 85025; 85379; 93005; 96365; 99285; G0378; J3480; J7030

== ENCOUNTER 2024-09-09 14:16 | Emergency (ER) | payer BC ==
[~2024-09-09] VITALS: Ht 175.3 cm; Wt 72.7 kg
[2024-09-09 14:20] VITALS: TEMP 98.6
--- NOTE | 2024-09-09 14:49 | Physician Documentation ---
History of Present Illness General Chief Complaint: Suicidal Ideation Stated Complaint: CUONG STEARNS Time Seen by MD: 14:41 Primary Medical Doctor: [facility] Mode of Arrival: Ambulatory History of Present Illness Initial Comments The patient is a 24-year-old male with a history of bipolar disorder with a psychosis, methamphetamine abuse, tobacco abuse came to the ER with a chief complaint of shortness of breath. He was seen here a few hours ago and admitted for methamphetamine toxicity but left AMA. Patient is not suicidal at this time. Medication Reconciliation Allergies: Coded Allergies: bupropion (Verified Allergy, Unknown, 09/09/24) lamotrigine (Verified Allergy, Unknown, 09/09/24) paroxetine (Verified Allergy, Unknown, 09/09/24) sertraline (Verified Allergy, Unknown, 09/09/24) Scheduled Divalproex Sodium (Divalproex Sodium Er), 750 MG PO BID Risperidone (Risperidone), 1 TAB PO HS Past Medical History Past Medical History: Anxiety, Bipolar, Depression Past Surgical History: no surgical history Smoking: Cigarettes Drug Use: marijuana Lives In: Home Review of Systems ROS Constitutional: Denies chills, fatigue, fever, weight gain or weight loss. HEENT: Denies hearing loss, sinus pressure or visual changes. Respiratory: Denies cough, shortness of breath or wheezing. Cardiovascular: Denies chest pain, pain while walking (claudication), edema or palpitations. Gastrointestinal: Denies abdominal pain, blood in stool, constipation, diarrhea, heartburn, loss of appetite, nausea or vomiting. Genitourinary: Denies painful urination (dysuria), excessive amount of urine (polyuria) or urinary frequency. Metabolic/Endocrine: Denies cold intolerance, heat intolerance, excessive thirst (polydipsia) or excessive hunger (polyphagia). Neurological: Denies dizziness, extremity numbness, extremity weakness, headaches, seizures or tremors. Psychiatric: Anxious and depressed. Integumentary: Denies breast discharge, breast lump, hives, mole change(s), rash or skin lesion. Musculoskeletal: Denies back pain, joint pain, joint swelling or neck pain. Hematologic: Denies easily bleeding, easily bruises, lymphedema or issues with blood clots. Immunologic: Denies food allergies or seasonal allergies. Physical Exam Physical Exam Vital Signs: Temperature: 98.6, Source: Oral, Heart Rate: 107, Respiratory Rate: 16, BP: 136/82, Pulse Oximetry: 100, Weight: 72.730 Physical Exam Physical Exam Vitals and nursing note reviewed. Constitutional: General: Patient is awake, alert, oriented x 4 in no acute distress and well appearing. Speech is clear and lucid. Appearance: Normal appearance. Patient is not ill-appearing, toxic-appearing or diaphoretic. HENT: Head: Normocephalic and atraumatic. Mouth/Throat: Mouth: Mucous membranes are moist. Pharynx: Oropharynx is clear. Eyes: General: No scleral icterus. Extraocular Movements: Extraocular movements intact. Pupils: Pupils are equal, round, and reactive to light. Cardiovascular: Rate and Rhythm: Normal rate and regular rhythm. Heart sounds: No murmur heard. Pulmonary: Effort: No respiratory distress. Breath sounds: No wheezing, rhonchi or rales. Abdominal: General: There is no distension. Palpations: There is no fluid wave, hepatomegaly or mass. Tenderness: There is no abdominal tenderness. There is no guarding. Musculoskeletal: General: No swelling or deformity. Skin: Coloration: Skin is not jaundiced. Findings: No erythema or rash. Neurological: Mental Status: Patient is alert. Progress Results/Orders Results/Orders Completed Orders - PERCY MAY MD [facility] Er (09/09/24 14:46) Cbc/Diff (09/09/24 14:46) Vital Signs 09/09/24 09/09/24 14:20 14:39 Temp 98.6 Pulse 107 Resp 20 16 B/P (MAP) 136/82 Pulse Ox 100 Laboratory Tests Test 09/09/24 15:06 White Blood Count 11.5 H Red Blood Count 4.54 L Hemoglobin 13.5 L Hematocrit 39.6 L Mean Corpuscular Volume 87.2 Mean Corpuscular Hemoglobin 29.8 Mean Corpuscular Hemoglobin Concent 34.1 Red Cell Distribution Width 14.8 H Platelet Count 306 Mean Platelet Volume 7.4 Neutrophils (%) (Auto) 67.6 Lymphocytes (%) (Auto) 20.0 L Monocytes (%) (Auto) 10.9 Eosinophils (%) (Auto) 0.9 Basophils (%) (Auto) 0.6 Neutrophils # (Auto) 7.8 H Lymphocytes # (Auto) 2.3 Monocytes # (Auto) 1.3 H Eosinophils # (Auto) 0.1 Basophils # (Auto) 0.1 CBC Comment Sodium Level 138 Potassium Level 3.5 Chloride Level 106 Carbon Dioxide Level 19.3 L Anion Gap 13 Blood Urea Nitrogen 13 Creatinine 1.07 Estimated GFR/1.73 m2 85 BUN/Creatinine Ratio 12.1 Glucose Level 91 Calcium Level 8.9 Albumin 3.7 Chemistry Comments Departure Disposition: 01 HOME / SELF CARE / HOMELESS Impression: Primary Impression: Bipolar disorder Additional Impressions: Methamphetamine abuse Homelessness Condition: Stable Additional Instructions: It is important to see your doctor or primary care provider. Emergency care may be incomplete without proper follow-up. Symptoms sometimes change or new symptoms might arise after you leave the emergency department. It is important that you call your doctor if you become worse in any way, or return to the emergency department. You are strongly urged to follow-up with your physician to assure complete and thorough care. Please call your doctor's office today, and informed them that you were seen in the emergency department, and that you need to be seen immediately for close follow-up. If you do not have a primary care doctor we encourage you to proactively seek a local physician for close follow-up. Consider local clinics, [facility], or local [facility]. Prior to discharge we spoke at length concerning symptoms that would merit reevaluation, but please return to the emergency department for any symptoms that are concerning to you, and we will be happy to continue your evaluation and treatment. Please note you can always return to the emergency department if you are having difficulty coordinating close follow-up. If medications were prescribed, you should fill them at your local pharmacy immediately and take only as prescribed. Bring your new medications to your doctors follow-up visit to discuss any changes that would be necessary. Please check [employer] for any results you did not receive in the Emergency Department: often we are unable to get all your tests back before you leave, and these tests need to be reviewed by your PCP and yourself. You can also call Medical Records if you are unable to access the internet to see [facility]. Return to the emergency department immediately for worsening chest pain, difficulty breathing, sweating, or other concerning emergent symptoms. Referrals: NO PRIMARY CARE PROVIDER (PCP) Signature Scribe Signature: . Attestation: PERCY FARLEY MD Sep 09, 2024 14:49
[2024-09-09 15:25] LABS: MEAN PLATELET VOLUME 7.4 FL (7.4-10.4); RED CELL DISTRIBUTION WIDTH 14.8 % (11.5-14.5)
[2024-09-09 15:35] LABS: CREATININE 1.07 MG/DL (0.60-1.10); TOTAL CARBON DIOXIDE 19.3 MMOL/L (24-32); eCRCL 106 ML/MIN; eGFR 85 ML/MIN
[2024-09-09 17:11] VITALS: BP 124/76; PULSE 103; RESP 16; O2SAT 98
[2024-09-10] MEDS ORDERED: RISP1TAB69 PO (11:13)
== END 2024-09-09 19:46 | disposition home or self-care (01) ==
LOC: ER 14:17
DX: F31.9 Bipolar disorder, unspecified (principal); F15.10 Other stimulant abuse, uncomplicated; F17.210 Nicotine dependence, cigarettes, uncomplicated; F12.90 Cannabis use, unspecified, uncomplicated; Z88.8 Allergy status to other drugs, medicaments and biological substances; Z59.00 Homelessness unspecified; Z79.899 Other long term (current) drug therapy
CPT/HCPCS: 36415; 80048; 85025; 99283

== ENCOUNTER 2024-09-10 10:50 | Emergency (ER) | payer BC ==
[~2024-09-10] VITALS: Ht 175.3 cm; Wt 65.0 kg
[2024-09-10 10:55] VITALS: BP 139/80; PULSE 105; RESP 18; TEMP 97.3; O2SAT 99
--- NOTE | 2024-09-10 11:05 | Physician Documentation ---
History of Present Illness ~ Stated Complaint: HEAT EXHAUSTION Time Seen by MD: 11:06 Primary Medical Doctor: [facility] HPI 24-year-old male with a history of methamphetamine use and bipolar one presents to the ED requesting medication. States that he also has cold and heat exhaustion. However the recent temperatures have been very temporary. States that he does not like being homeless in the and [place]. Denies HI denies SI Day of Onset: Sep 10, 2024 Medication Reconciliation Allergies: Coded Allergies: bupropion (Verified Allergy, Unknown, 09/10/24) lamotrigine (Verified Allergy, Unknown, 09/10/24) paroxetine (Verified Allergy, Unknown, 09/10/24) sertraline (Verified Allergy, Unknown, 09/10/24) Scheduled Divalproex Sodium (Divalproex Sodium Er), 750 MG PO BID Risperidone (Risperidone), 1 TAB PO HS Past Medical History Past Medical History: Anxiety, Bipolar, Depression Past Surgical History: no surgical history Patient History: Patient reports no known family medical history. Drug Use: marijuana Lives In: Home Progress Results/Orders Results/Orders Completed Orders - SE GRESHAM NP Risperidone Tablet (Risperdal Tablet) (09/10/24 11:05) Vital Signs 09/10/24 10:55 Temp 97.3 Pulse 105 Resp 18 B/P (MAP) 139/80 Pulse Ox 99 Departure Disposition: 01 HOME / SELF CARE / HOMELESS Impression: Primary Impression: Mental disorder Additional Impressions: Homelessness Methamphetamine intoxication Condition: Stable Referrals: NO PRIMARY CARE PROVIDER (PCP) Prescriptions Risperidone (Risperidone) 1 Mg Tab.rapdis 1 TAB PO Q12H for 30 Days, #60 TAB 0 Refills Prov: SE GRESHAM NP 09/10/24 Signature Scribe Signature: f Attestation: Scribed for Se Gresham Np by Se Villaseñor NP . 09/10/24 11:14 SE GRESHAM NP Sep 10, 2024 11:05
[2024-09-10] MEDS ORDERED: RISP1TAB69 PO (11:13)
== END 2024-09-10 12:49 | disposition home or self-care (01) ==
LOC: ER 10:51
DX: F99 Mental disorder, not otherwise specified (principal); F31.9 Bipolar disorder, unspecified; F41.9 Anxiety disorder, unspecified; F15.129 Other stimulant abuse with intoxication, unspecified; Z59.00 Homelessness unspecified; Z88.8 Allergy status to other drugs, medicaments and biological substances
CPT/HCPCS: 99283

== ENCOUNTER 2024-09-10 17:10 | Emergency (ER) | payer BC ==
[~2024-09-10] VITALS: Ht 175.3 cm; Wt 69.4 kg
[~2024-09-10 17:10] MED LIST changes: +RISP1TAB69 PO
[2024-09-10 17:19] VITALS: BP 139/94; PULSE 106; RESP 18; TEMP 97.8; O2SAT 100
--- NOTE | 2024-09-10 17:24 | Physician Documentation ---
History of Present Illness ~ General Stated Complaint: HEAT EXHAUSTION Time Seen by MD: 17:19 Primary Medical Doctor: [facility] History of Present Illness Initial Comments A 24-year-old male who was seen here earlier today and prescribed appropriate psych psychiatric medications returns with ongoing complaints of heat exhaustion. It is mid 90s currently. Patient has been seen here in the ED several times in the last day with various complaints. Medication Reconciliation Allergies: Coded Allergies: bupropion (Verified Allergy, Unknown, 09/11/24) lamotrigine (Verified Allergy, Unknown, 09/11/24) paroxetine (Verified Allergy, Unknown, 09/11/24) sertraline (Verified Allergy, Unknown, 09/11/24) Scheduled Divalproex Sodium (Divalproex Sodium Er), 750 MG PO BID Risperidone (Risperidone), 1 TAB PO HS Risperidone (Risperidone), 1 TAB PO Q12H Past Medical History Past Medical History: Anxiety, Bipolar, Depression Past Surgical History: no surgical history Patient History: Patient reports no known family medical history. Drug Use: marijuana Lives In: Home Review of Systems All Other Systems at this time: Reviewed and Negative ROS As stated above in the HPI, otherwise all systems are reviewed and negative. Physical Exam Physical Exam Physical Exam General: Alert, no apparent distress. Respiratory: Lungs clear, no respiratory distress. Cardiovascular: Regular rate and rhythm, no murmurs. Gastrointestinal: Soft, nontender, nondistended. Bowels sounds present. Neurologic: Oriented x4. Psychiatric: Normal mood and affect. Skin: Normal color, warm and dry. No edema, no ecchymosis. Progress Results/Orders Results/Orders Vital Signs 09/10/24 17:19 Temp 97.8 Pulse 106 Resp 18 B/P (MAP) 139/94 Pulse Ox 100 O2 Flow Rate 0 Medical Decision Making Findings At this point he does not have the appropriate criteria for a medical complaint. He is vitals are reassuring. He is attempting several stories about hard luck. I explained that the hospital is not responsible for providing housing. I did send him to the [facility] with the provide air conditioning and house. He refusedd Departure Disposition: HOME / SELF CARE / HOMELESS Impression: Primary Impression: Mental disorder Condition: Stable Discharge Instructions: Depression, Adult Referrals: NO PRIMARY CARE PROVIDER (PCP) Signature Scribe Signature: t Attestation: Scribed for Se Gresham Credit Compliance Officer by Se Villaseñor NP . 09/14/24 22:15 SE GRESHAM NP Sep 10, 2024 17:24
== END 2024-09-10 17:37 | disposition home or self-care (01) ==
LOC: ER 17:11
DX: F99 Mental disorder, not otherwise specified (principal); F31.9 Bipolar disorder, unspecified; F41.9 Anxiety disorder, unspecified; F12.90 Cannabis use, unspecified, uncomplicated
CPT/HCPCS: 99282